=== PATIENT | male | born 1930 | race African-American/Black ===

== ENCOUNTER 2016-05-16 09:49 | Inpatient (IN) | payer OTHER ==
[~2016-05-16] VITALS: Ht 172.7 cm; Wt 89.9 kg
[2016-05-16] MEDS ORDERED: LIDOCAINE 1% (MDV) 20 ML INJ SC ONE (10:30)
[2016-05-16] MEDS ORDERED: TAMS0.4C2 ORAL (10:35)
[2016-05-16] MEDS ORDERED: AMLO-147 ORAL (10:35)
[2016-05-16] MEDS ORDERED: VALS320T14 ORAL (10:35)
[2016-05-16] MEDS ORDERED: SIMV40TA7 ORAL (10:35)
[2016-05-16] MEDS ORDERED: METO100T13 ORAL (10:35)
[2016-05-16] MEDS ORDERED: HYDR-3498 ORAL (10:35)
[2016-05-16 10:54] LABS: ADD SCAN DIFF NO
--- NOTE | 2016-05-16 10:59 | RADRPT ---
PROCEDURE: CHEST 1VW CLINICAL INDICATION: Shortness of breath TECHNIQUE: Single frontal view of the chest was obtained COMPARISON: 10/25/2006 FINDINGS: The cardiac size is mildly large. Aortic vascular calcifications are demonstrated. There is mild pulmonary vascular congestion. The lungs are otherwise clear. No consolidation, effusion, or pneumothorax. Mild degenerative changes of the visualized osseous structures are visualized. IMPRESSION: 1. Mild cardiomegaly with mild pulmonary vascular congestion. 2. Atherosclerosis. RPTAT:PP .Hua Linn MD, Date Time Electronically viewed and signed by .Hua Linn MD, on 05/16/2016 10:58 .V/
[2016-05-16 11:00] LABS: BASOPHILS % 0.3 % (0.0-2.0); EOSINOPHILS # 0.1 10^3/ul (0.0-0.5); EOSINOPHILS % 1.2 % (0.0-7.0); HEMATOCRIT 40.6 % (42.0-52.0); HEMOGLOBIN 12.7 g/dl (14.0-18.0); LYMPHOCYTES # 1.5 10^3/ul (0.8-2.9); LYMPHOCYTES % 26.4 % (15.0-51.0); MEAN CORPUSCULAR HEMOGLOBIN 24.8 pg (29.0-33.0); MEAN CORPUSCULAR HGB CONC 31.3 g/dl (32.0-37.0); MEAN CORPUSCULAR VOLUME 79.3 fl (82.0-101.0); MEAN PLATELET VOLUME 12.5 fl (7.4-10.4); MONOCYTE # 0.5 10^3/ul (0.3-0.9); MONOCYTES % 8.6 % (0.0-11.0); NEUTROPHIL # 3.7 10^3/ul (1.6-7.5); NEUTROPHILS % 63.3 % (39.0-77.0); PLATELET COUNT 165 10^3/UL (140-415); RED BLOOD COUNT 5.12 10^6/ul (4.70-6.10); RED CELL DISTRIBUTION WIDTH 15.1 % (11.5-14.5); WHITE BLOOD COUNT 5.8 10^3/ul (4.8-10.8)
[2016-05-16 11:20] LABS: ALBUMIN 3.8 g/dl (3.3-4.9); ALBUMIN/GLOBULIN RATIO 1.08; BILIRUBIN,INDIRECT 0.4 mg/dl (0-1.1); BILIRUBIN,TOTAL 0.4 mg/dl (0.2-1.3); CALCIUM 8.9 mg/dl (8.4-10.2); CREATININE 0.89 mg/dl (0.61-1.24); POTASSIUM 4.9 mmol/L (3.5-5.1); TOTAL PROTEIN 7.3 g/dl (6.1-8.1)
[2016-05-16 11:31] LABS: TROPONIN-I 0.039 ng/ml (0.00-0.12)
[2016-05-16] MEDS ORDERED: FUROSEMIDE 40 MG INJ IV ONE (13:00)
--- NOTE | 2016-05-16 13:08 | ERA ---
ER Documentation Chief Complaint Date/Time DATE: 05/16/16 TIME: 12:56 Chief Complaint FEELS WEAK AND TIRED HPI He said over the past 2 weeks he noticed that he has been having some dyspnea as he would walk up stairs to his apartment. He says however is starting to get gradually worse and is having more shortness of breath when he walks around his house. He states she is walking 20-30 feet will cause some shortness of breath. He denies any orthopnea and has no exertional chest pain. Is also complaining of swelling to his left elbow over the past month. He has olecranon swelling that he says will not go away after seeing his doctor put him on some medication for this. There is no erythema or pain. ROS All systems reviewed and are negative except as per history of present illness. Medications Home Meds Reported Medications Hydrocodone Bit-Acetaminophen (Hydrocodone Bit-APAP) 5-325MG Tablet, 1 TAB ORAL Y for PAIN LEVEL 6-10, #90 05/16/16 Valsartan (Valsartan) 320 Mg Tablet, 320 MG ORAL DAILY, #30 05/16/16 Tamsulosin Hcl* (Tamsulosin Hcl*) 0.4 Mg Cap.er.24h, 0.4 MG ORAL DAILY, #90 05/16/16 Amlodipine Besylate* (Amlodipine Besylate*) 10 Mg Tablet, 10 MG ORAL DAILY, #180 05/16/16 Metoprolol Succinate* (Toprol XL*) 100 Mg Tab.sr.24h, 100 MG ORAL DAILY, #180 05/16/16 Simvastatin (Simvastatin) 40 Mg Tablet, 40 MG ORAL BEDTIME, #90 05/16/16 Allergies Allergies: Coded Allergies: No Known Allergy (Unverified , 05/16/16) PMhx/Soc History of Surgery: Yes (NECK ) Anesthesia Reaction: No Hx Neurological Disorder: No Hx Respiratory Disorders: No Hx Cardiac Disorders: Yes (HTN , HIGH CHOLESTEROL ) Hx Psychiatric Problems: No Hx Miscellaneous Medical Probl: No Hx Alcohol Use: No Hx Substance Use: No Hx Tobacco Use: No Smoking Status: Former smoker FmHx Family History: No coronary disease Physical Exam Vitals Vital Signs Date Time Temp Pulse Resp B/P Pulse Ox O2 Delivery O2 Flow Rate FiO2 05/16/16 12:32 48 18 156/67 100 Nasal Cannula 2.0 05/16/16 09:57 98.1 54 18 161/67 99 Physical Exam Const: Well-developed, well-nourished Head: Atraumatic, normocephalic Eyes: Normal Conjunctiva, PERRLA, EOMI, normal sclera, no nystagmus ENT: Normal External Ears, Nose and Mouth, moist mucus membranes. Neck: Full range of motion. No meningismus, no lymphadenopathy. Resp: Clear to auscultation bilaterally, no wheezing, rhonchi, rales Cardio: Regular rate and rhythm, no murmurs, S1 S2 present Abd: Soft, non tender x 4, non distended. Normal bowel sounds, no guarding or rebound, no pulsitile abdominal masses or bruits Skin: No petechiae or rashes, no ecchymosis , no maculopapular rash Back: No midline or flank tenderness Ext: No cyanosis, or edema, FROM x 4, normal inspection, neurovascularly intact x 4, the left olecranon has a swollen bursa that is ballotable there is no sign of infection no erythema no abscess or induration Neur: Awake and alert, STR 5/5 x 4, sensation intact x 4, no focal findings, cerebellum intact Psych: Normal Mood and Affect Result Diagram: 05/16/16 1045 05/16/16 1045 Results 24 hrs Laboratory Tests Test 05/16/16 10:45 White Blood Count 5.810^3/ul Red Blood Count 5.1210^6/ul Hemoglobin 12.7g/dl Hematocrit 40.6% Mean Corpuscular Volume 79.3fl Mean Corpuscular Hemoglobin 24.8pg Mean Corpuscular Hemoglobin Concent 31.3g/dl Red Cell Distribution Width 15.1% Platelet Count 44474^3/UL Mean Platelet Volume 12.5fl Neutrophils % 63.3% Lymphocytes % 26.4% Monocytes % 8.6% Eosinophils % 1.2% Basophils % 0.3% Nucleated Red Blood Cells % 0.0/100WBC Neutrophils # 3.710^3/ul Lymphocytes # 1.510^3/ul Monocytes # 0.510^3/ul Eosinophils # 0.110^3/ul Basophils # 0.010^3/ul Nucleated Red Blood Cells # 0.010^3/ul Sodium Level 139mmol/L Potassium Level 4.9mmol/L Chloride Level 105mmol/L Carbon Dioxide Level 26mmol/L Anion Gap 13 Blood Urea Nitrogen 16mg/dl Creatinine 0.89mg/dl Glucose Level 117mg/dl Calcium Level 8.9mg/dl Total Bilirubin 0.4mg/dl Direct Bilirubin 0.00mg/dl Indirect Bilirubin 0.4mg/dl Aspartate Amino Transf (AST/SGOT) 37IU/L Alanine Aminotransferase (ALT/SGPT) 30IU/L Alkaline Phosphatase 86IU/L Troponin I 0.039ng/ml B-Type Natriuretic Peptide 1740PG/ML Total Protein 7.3g/dl Albumin 3.8g/dl Globulin 3.50g/dl Albumin/Globulin Ratio 1.08 Current Medications Medications (Trade) Dose Ordered Sig/Jama Route PRN Reason Start Time Stop Time Status Last Admin Dose Admin Lidocaine (Xylocaine 1% (Mdv) 20 ml) 20 ml ONCE ONCE SC 05/16/16 10:30 05/16/16 10:33 DC Furosemide (Lasix) 40 mg ONCE ONCE IV 05/16/16 13:00 05/16/16 13:01 Procedures/MDM PROCEDURE: CHEST 1VW CLINICAL INDICATION: Shortness of breath TECHNIQUE: Single frontal view of the chest was obtained COMPARISON: 10/25/2006 FINDINGS: The cardiac size is mildly large. Aortic vascular calcifications are demonstrated. There is mild pulmonary vascular congestion. The lungs are otherwise clear. No consolidation, effusion, or pneumothorax. Mild degenerative changes of the visualized osseous structures are visualized. IMPRESSION: 1. Mild cardiomegaly with mild pulmonary vascular congestion. 2. Atherosclerosis. RPTAT:PP .Hua Linn MD, Date Time Electronically viewed and signed by .Hua Linn MD, on 05/16/2016 10:58 .V/ CC: JUSTICE DA SILVA DO Patient has elevated BNP at 1740 and does have vascular congestion on his chest x-ray. Will be given IV Lasix here to help diurese. He is having symptomatic heart failure and I will admit him for diuresis, echocardiogram and CHF workup. Procedure: Left olecranon bursa drainage by me Skin was prepped with Betadine and aseptic technique. The skin was numbed with 1% lidocaine without epinephrine using 1 cc. 18-gauge needle was used to advance into the olecranon bursa and obtain 10 cc of blood. The entire swelling is completely resolved EKG: Rate/Rhythm: Sinus bradycardia left anterior fascicular block QRS, ST, QT: NORMAL IA, QRS, QT] Impression: Abnormal EKG] Departure Diagnosis: Primary Impression: New onset of congestive heart failure Additional Impression: Olecranon bursitis of left elbow Condition: Stable JUSTICE DA SILVA DO May 16, 2016 13:06
[2016-05-16 17:30] VITALS: TEMP 98
[2016-05-16] MEDS ORDERED: ONDANSETRON 4 MG INJ IV PRN (18:30)
[2016-05-16] MEDS ORDERED: ACETAMINOPHEN 325 MG TAB PO PRN ×2 (18:30→19:30)
[2016-05-16 19:15] VITALS: Ht 172.7 cm; Wt 89.9 kg
[2016-05-16] MEDS ORDERED: ZOLPIDEM 5 MG TAB PO PRN (19:30)
[2016-05-16] MEDS ORDERED: ONDANSETRON 4 MG TAB PO PRN (19:30)
[2016-05-16] MEDS ORDERED: NACL 0.9% 3 ML SYG IV SCH (19:30)
[2016-05-16] MEDS ORDERED: DOCUSATE SODIUM 100 MG CAP PO PRN (19:30)
[2016-05-16] MEDS ORDERED: NON-FORMULARY/PATIENT OWN MED (Simvastatin 40 MG) ORAL SCH (19:30)
[2016-05-16 20:22] VITALS: PULSE 50
[2016-05-16 20:43] VITALS: BP 179/78; RESP 17
[2016-05-16] MEDS: FAMOTIDINE 20 MG TAB PO SCH (21:03)
[2016-05-16] MEDS: ATORVASTATIN 20 MG TAB PO SCH (21:03)
[2016-05-16] MEDS: ENOXAPARIN 40 MG/0.4 ML SYG SC SCH (21:03)
[2016-05-16 22:00] VITALS: BP 158/79
[2016-05-16 23:11] VITALS: PULSE 40
[2016-05-17] VITALS (12 sets, daily range): BP systolic 127–175; BP diastolic 66–81; PULSE 40–61; RESP 18
[2016-05-17] MEDS ORDERED: FUROSEMIDE 40 MG INJ IV ONE (08:00)
[2016-05-17 08:21] LABS: ADD SCAN DIFF NO
[2016-05-17 08:28] LABS: BASOPHILS % 0.4 % (0.0-2.0); EOSINOPHILS # 0.1 10^3/ul (0.0-0.5); EOSINOPHILS % 1.8 % (0.0-7.0); HEMATOCRIT 41.2 % (42.0-52.0); LYMPHOCYTES # 1.6 10^3/ul (0.8-2.9); LYMPHOCYTES % 31.7 % (15.0-51.0); MEAN CORPUSCULAR HEMOGLOBIN 24.8 pg (29.0-33.0); MEAN CORPUSCULAR HGB CONC 31.6 g/dl (32.0-37.0); MEAN CORPUSCULAR VOLUME 78.5 fl (82.0-101.0); MEAN PLATELET VOLUME 12.7 fl (7.4-10.4); MONOCYTE # 0.5 10^3/ul (0.3-0.9); MONOCYTES % 10.6 % (0.0-11.0); NEUTROPHIL # 2.8 10^3/ul (1.6-7.5); NEUTROPHILS % 55.1 % (39.0-77.0); PLATELET COUNT 164 10^3/UL (140-415); RED BLOOD COUNT 5.25 10^6/ul (4.70-6.10); RED CELL DISTRIBUTION WIDTH 15.2 % (11.5-14.5); WHITE BLOOD COUNT 5.1 10^3/ul (4.8-10.8)
[2016-05-17 08:59] LABS: CREATININE 0.77 mg/dl (0.61-1.24)
[2016-05-17] MEDS ORDERED: VALSARTAN 320 MG ORAL SCH (09:00)
[2016-05-17] MEDS ORDERED: METOPROLOL (XL) 100 MG TAB PO SCH (09:00)
[2016-05-17] MEDS: TAMSULOSIN (SR) 0.4 MG CAP PO SCH (09:13)
[2016-05-17] MEDS: FAMOTIDINE 20 MG TAB PO SCH (09:14)
[2016-05-17] MEDS: VALSARTAN 160 MG TAB PO SCH (09:14)
[2016-05-17] MEDS: AMLODIPINE 10 MG TAB PO SCH (09:14)
[2016-05-17] MEDS: ENOXAPARIN 40 MG/0.4 ML SYG SC SCH (09:23)
--- NOTE | 2016-05-17 12:21 | CONS ---
DATE OF ADMISSION: 05/16/2016 DATE OF CONSULTATION: 05/17/2016 REFERRING PHYSICIAN: Dr. Thibodeaux REASON FOR EVALUATION: Bradycardia and episodes of recurrent dizziness, and new onset CHF. HISTORY OF PRESENT ILLNESS: Mr. Minaya is a pleasant 86-year-old gentleman with history of hypert ension, dyslipidemia, history of prior episodes of dizziness who comes to the hospital now for evalu ation of episodes of dizziness associated with shortness of breath. The patient stated he was at ho me and he felt very dizzy and short of breath. The patient said that he had prior episodes like thi s before. I reviewed the patient's EKG carefully. The patient has a very abnormal conduction on hi s EKG. Based on my interpretation, the patient has intraventricular conduction delay with leftward axis and left anterior fascicular block. He also has interval prolongation. The patient is i n a beta gregory at the moment. The patient does not feel dizzy now. I think for now, the plan is to obtain a 2D echo to establish ejection fraction. I would recommend for patient to have a stress test to restratify for ischemic disease. If patient continues to have bradycardia with these episod es, there is a chance that the patient might benefit from a pacemaker. For now, we will continue to evaluate for heart failure with a 2D echo, a stress test to follow. This will be in consideration of pacemaker placement. PAST MEDICAL HISTORY: 1. Hypertension. 2. Dyslipidemia. 3. History of dizzy episodes in the past. ALLERGIES: NO KNOWN DRUG ALLERGIES. SOCIAL HISTORY: The patient does not smoke, does not drink and does not do drugs, but he has a hist ory of tobacco use in the past. HOME MEDICATIONS: Include: 1. Hydrocodone. 2. Valsartan 320 mg p.o. once a day. 3. 4. Amlodipine 10 mg p.o. once a day. 3. Metoprolol succinate 100 mg q.24 h. 4. Simvastatin 40 mg once a day. REVIEW OF SYSTEMS: CONSTITUTIONAL: No fevers, no chills. Episodes of dizziness as described. HEENT: No changes in vision or hearing. CARDIAC: No chest pain reported. RESPIRATORY: Shortness of breath, acute on chronic, with dizziness. GASTROINTESTINAL: No nausea, vomiting, diarrhea, constipation. GENITOURINARY: No dysuria, hematuria. NEUROLOGIC: No focal neurologic deficits. PSYCHIATRIC: No known history of psychiatric illness. PHYSICAL EXAMINATION: VITAL SIGNS: Temperature is 98.6, heart rate is in the 40s on admission, blood pressure 175/81. GENERAL: He is a thin gentleman in no acute distress, alert and oriented x3, aware of his condition . HEAD: Normocephalic, atraumatic. Eyes anicteric. NECK: Supple. JVD 6-7 cm. There is no lymphadenopathy. HEART: Regular with soft holosystolic murmur at the apex. PMI is nondisplaced. There is no S3. LUNGS: Coarse at the base. ABDOMEN: Distended, bowel sounds are present. There is no hepatosplenomegaly. GENITOURINARY: No cyanosis, intact sutures cyanosis, trace edema. SKIN: Does not show any bruises. NEUROLOGICAL: He is able to move his extremities. LABORATORY DATA: White blood cell count 5.1, hemoglobin 7.0, platelets 164. His INR is 1.0. Sodiu m 140, potassium 4.0. His BUN is 14, creatinine 0.7. His CK-MB is 2.5 and troponin is negative at 0.09. ASSESSMENT AND PLAN: 1. Dizziness. The patient with episode of dizziness, continue dizziness evaluation. Now, the elvis ent will have a 2D echo, carotid ultrasounds are advised. We will also facilitate a stress test to rule out ischemia. 2. Abnormal electrocardiogram. Patient abnormal EKG, leftward axis with left anterior fascicular b lock is noted. I think that if patient is on the large dose of beta gregory, I will decrease his be ta gregory dose now and follow expectantly. If patient continues to have symptoms, he might require a pacemaker in the future. 2. Hypertension. Blood pressure is on the high side. Continue to adjust medical therapy as imssy campos and provide recommendations and care is indicated. 3. History of anemia. 4. Dyslipidemia. We will check fasting lipids for the morning. I would like to thank Dr. Thibodeaux for referring this patient for my evaluation. Dictated By: SHADY MALDONADO MD ML/NTS Conf#: [id number] DID#: [id number]
--- NOTE | 2016-05-17 14:56 | RADRPT ---
PROCEDURE: US Carotids. CLINICAL INDICATION: Dizziness TECHNIQUE: Multiple sonographic of the carotid arteries were obtained utilizing martin scale imaging . Color and Doppler imaging was performed. The images were reviewed on a PACS workstation. COMPARISON: No prior studies are available for comparison. FINDINGS: Location Right Left CCA 102 cm/sec 89 cm/sec Prox ICA 120 cm/sec 84 cm/sec Mid ICA 102 cm/sec 78 cm/sec Dist ICA 104 cm/sec 77 cm/sec ECA 214 cm/sec 135 cm/sec ICA/CCA 1.2 0.9 Antegrade flow is seen within the vertebral arteries bilaterally. Moderate scattered bilateral ather osclerotic plaque is present in a high especially at the bilateral common carotid arteries. This michael ateral intimal wall thickening is also present. Hemodynamically significant plaque is seen within t he carotid system bilaterally. No hemodynamically significant stenosis or occlusion is identified. IMPRESSION: 1. Moderate scattered atherosclerotic plaque and intimal wall thickening without evidence for hemody namically significant stenosis - validated velocity measurements with angiographic measurements, richy ocity criteria are extrapolated from diameter data as defined by the Society of Radiologists in Ultr asound Consensus Conference Radiology 2003; 229;340-346. This study does indirectly reference the m easurement of the distal ICA diameter as the denominator for stenosis measurement. 2. Antegrade flow seen within the vertebral arteries bilaterally. 3. Bilateral intimal wall thickening. SRU Consensus Conference Criteria for the Diagnosis of Carotid Artery Stenosis Degree of Stenosis, % ICA PSV, cm/sec Plaque Estimate, % ICA/CCA PSV Ratio Normal <125 None <2.0 <50 <125 <50 <2.0 50 69 125-230 >50 2.0-4.0 >70 but less than near occlusion >230 >50 <4.0 Near occlusion High, low, or undetectable Visible Variable Total occlusion Undetectable Visible, no detectable lumen Not applicable *Cartoid artery stenosis: martin-scale and Doppler US diagnosis. Society of Radiologists in Ultrasound Consensus Conference. Radiology 2003; 229: 340-346 RPTAT: JJ .Juan Carrington MD, MD Date Time Electronically viewed and signed by .Juan Carrington MD, MD on 05/17/2016 14:56 .A/
[2016-05-17] MEDS ORDERED: hydrALAzine 20 MG INJ IV PRN (15:00)
[2016-05-17] MEDS ORDERED: GUAIFENESIN/CODEINE 5ML CUP PO PRN (15:00)
[2016-05-17] MEDS ORDERED: ALBUTEROL 18 GM INHALER INH PRN (15:00)
--- NOTE | 2016-05-17 15:44 | HP ---
DATE OF ADMISSION: 05/17/2016 PRIMARY CARE PHYSICIAN: None. GYRO COMPASS TESTER: Shady Oreilly MD CHIEF COMPLAINT: Fatigue. HISTORY OF PRESENT ILLNESS: An 86-year-old gentleman who has had exertional fatigue since July. No known aggravating, no known relieving factors. Apparently he is able to do some activities, but ex ertional has been limited. He does have edema and sometimes gait instability due to weakness. No l oss of speech or vision. No focal deficits. No dysarthria, dysphagia. Denies any symptoms or sign s of GI bleed. He has an intermittent and ongoing cough with no fever. Weight loss is doubtful. N o known aggravating, no known relieving factors. No recent medication changes except for maybe a fe w months ago Benicar was changed to another blood pressure medication. PAST MEDICAL HISTORY: 1. Peripheral artery disease, carotid stenosis. 2. Hypertension. 3. Dyslipidemia. 4. Past tobacco. 5. Social alcohol. PAST SURGICAL HISTORY: 1. Right foot surgery. 2. Bilateral carotid endarterectomy by Dr. Blevins in [place]. ALLERGIES: NO KNOWN DRUG ALLERGIES. SOCIAL HISTORY: Past tobacco, potentially social alcohol. FAMILY HISTORY: Some sort of cancer with maybe mother and sister but unknown type. There is a fami ly history of maybe stroke and coronary artery disease, but none at an early age. REVIEW OF SYSTEMS NEUROLOGICAL: No headache. No loss of speech or vision. CARDIOVASCULAR: No chest pain. Positive dyspnea. Positive edema. LUNGS: Positive dyspnea, edema, cough. ABDOMEN: No pain, nausea, vomiting, diarrhea. GENITOURINARY: No abdominal pain, hematuria, dysuria. MUSCULOSKELETAL: Mild gait dysfunction. No rash, no itching. Positive edema. PSYCHIATRY: The patient has stable mood without significant agitation, anxiety, depression. HEMATOLOGIC: No hematochezia, hemoptysis, melena, hematuria. CONSTITUTIONAL: No weight loss that I am aware of. ENDOCRINE: Positive dyslipidemia. No previous thyroid or diabetes issues. PHYSICAL EXAMINATION: HEENT/NECK: Extraocular movements are intact. No pallor, no icterus, no adenopathy, no JVD, no dr oop. Probable some anisocoria or exophthalmos, concerning. CARDIOVASCULAR: S1, S2 regular. No murmur, rub, gallop appreciated. LUNGS: Diminished breath sounds bilaterally. No tachypnea. ABDOMEN: Bowel sounds present, nontender, nondistended. No rigidity, no rebound or guarding. No a bdominal bruits. EXTREMITIES: With edema bilaterally, mild, negative Homans. HOME MEDICATIONS: 1. [place] 5 as needed. 2. Norvasc 10. 3. Toprol-XL 100. 4. Simvastatin 40. 5. Flomax 0.4. 6. Diovan 320. IMAGING: Chest x-ray: Mild congestion, cardiomegaly. LABORATORY DATA: White cell count 5, H and H of 12 and 40, platelets of 165. CMP essentially unrem arkable except a proBNP of 1700. Troponins negative x3. ASSESSMENT: 1. Exertional dyspnea, possible symptomatic bradycardia, left ventricular induction delay. Stable. Consult Cardiology. Decreased rate control. Check TSH. Consider stress test. Follow up on echo . 2. Chronic benign prostatic hypertrophy, potentially continue Flomax. 3. Possible diastolic dysfunction. 4. Chronic hypertension, possible hypertensive heart disease. 5. Anemia. 6. Past tobacco. 7. Degenerative joint disease. 8. Chronic peripheral artery disease. PLAN: Admit to telemetry, rule out acute coronary syndrome. Consult cardiology. Decrease beta blo cker. Follow rhythm. If there is no syncope, he may not require a pacemaker. Recommend home with supportive care. No driving and may be off rate control and followup. Unless otherwise symptoms, i n which we will have to proceed forward with a pacemaker. The patient agrees with plan of care. Co ntinue GI and DVT prophylaxis. Check TSH. Check . Dictated By: KENRICK LAMAR MD AC/NTS Conf#: [id number] DID#: [id number] CC: SHADY OREILLY MD;*End*
--- NOTE | 2016-05-17 17:40 | RADRPT ---
Echocardiogram Report Patient Name: JAIMEE NASSAR Gender: Male Date: 1930 Study Date: 17-May-2016 Test Preparation Tutor: Yudelka Chowdhury RUST Location: 5556 Ref. Physician: JARED MENENDEZ Quality: Good Procedures: Transthoracic echocardiogram with complete 2D, M-Mode, and doppler examination. Indications: Congestive Heart Failure. 2D/M Mode Doppler Measurement Value Normal Ranges Measurement Value Normal Ranges LVIDd 2D 4.5 3.5 - 5.6 cm AV Peak Raudel 1.2 m/sec LVIDs 2D 2.5 2.1 - 4.1 cm AV Peak PG 6.0 mmHg FS 2D 45.1 % LVOT Peak Raudel 0.9 m/sec LVPWd 2D 1.8 0.6 - 1.1 cm LVOT Peak PG 3.0 mmHg IVSd 2D 1.7 0.6 - 1.1 cm MV E Peak Raudel 0.9 m/sec IVS/LVPW 2D 0.9 MV A Peak Raudel 0.5 m/sec AoR Diam 2D 2.8 2.0 - 3.7 cm MV E/A 1.9 LA/Ao 2D 2 0 - 1 MV Decel Time 246 msec EDV 2D 91.1 cm3 MV E/A 1.9 ESV 2D 15.1 cm3 TR Peak Raudel 2.4 m/sec LA Dimen 2D 4.2 2.3 - 4.0 cm TR Peak PG 23.0 mmHg RVSP 26.0 mmHg Findings Left Ventricle: Normal left ventricular systolic function. Normal left ventricular cavity size. Severe concentric left ventricular hypertrophy. Ejection fraction is visually estimated at 65 %. Right Ventricle: Normal right ventricular size. Normal right ventricular systolic function. Left Atrium: There is mild enlargement of left atrium. Right Atrium: The right atrium is normal in size. Mitral Valve: Mitral valve leaflets appear mildly thickened. Mild mitral annular calcification. Mild mitral valve regurgitation. Aortic Valve: No significant aortic stenosis or insufficiency. Aortic cusps appear mildly calcified. Tricuspid Valve: Normal appearance of the tricuspid valve. Estimated peak PA systolic pressure 26 mmHg. There is trace tricuspid regurgitation. Pulmonic Valve: Normal pulmonic valve appearance. There is trace pulmonic regurgitation. Pericardium: Trivial pericardial effusion. Aorta: Normal aortic root. IVC: Normal size and normal respiratory collapse consistent with normal right atrial pressure. Conclusions 1.Normal left ventricular systolic function. Normal left ventricular cavity size. Severe concentric left ventricular hypertrophy. Ejection fraction is visually estimated at 65 %. 2.No significant aortic stenosis or insufficiency. Aortic cusps appear mildly calcified. 3.Normal appearance of the tricuspid valve. Estimated peak PA systolic pressure 26 mmHg. There is trace tricuspid regurgitation. 4.Mitral valve leaflets appear mildly thickened. Mild mitral annular calcification. Mild mitral valve regurgitation. Electronically Signed By: Tyshawn Oreilly 17-May-2016 17:39:23 -0700 Patient Name: JAIMEE NASSAR Study Date: 17-May-[id number]
[2016-05-17] MEDS: ATORVASTATIN 20 MG TAB PO SCH (21:22)
[2016-05-18] VITALS (12 sets, daily range): BP systolic 148–169; BP diastolic 67–88; PULSE 44–63; RESP 17–18
[2016-05-18 07:37] LABS: ADD SCAN DIFF NO
[2016-05-18 07:46] LABS: BASOPHILS % 0.5 % (0.0-2.0); EOSINOPHILS # 0.1 10^3/ul (0.0-0.5); EOSINOPHILS % 2.4 % (0.0-7.0); HEMATOCRIT 40.8 % (42.0-52.0); HEMOGLOBIN 12.6 g/dl (14.0-18.0); LYMPHOCYTES % 33.7 % (15.0-51.0); MEAN CORPUSCULAR HEMOGLOBIN 24.4 pg (29.0-33.0); MEAN CORPUSCULAR HGB CONC 30.9 g/dl (32.0-37.0); MEAN CORPUSCULAR VOLUME 79.1 fl (82.0-101.0); MEAN PLATELET VOLUME 12.8 fl (7.4-10.4); MONOCYTE # 0.6 10^3/ul (0.3-0.9); MONOCYTES % 9.8 % (0.0-11.0); NEUTROPHIL # 3.1 10^3/ul (1.6-7.5); NEUTROPHILS % 53.4 % (39.0-77.0); PLATELET COUNT 165 10^3/UL (140-415); RED BLOOD COUNT 5.16 10^6/ul (4.70-6.10); WHITE BLOOD COUNT 5.8 10^3/ul (4.8-10.8)
[2016-05-18 07:51] LABS: INR 1.02; PROTIME 13.4 Sec (12.2-14.2)
[2016-05-18 07:54] LABS: IRON 50 ug/dl (35-150)
[2016-05-18 07:56] LABS: CALCIUM 8.8 mg/dl (8.4-10.2); CREATININE 0.9 mg/dl (0.61-1.24); MAGNESIUM 2.1 mg/dl (1.7-2.5); PHOSPHORUS 4.7 mg/dl (2.5-4.9); POTASSIUM 4.1 mmol/L (3.5-5.1)
[2016-05-18 08:04] LABS: TOTAL IRON BINDING CAPACITY 326 ug/dl (241-421)
[2016-05-18 08:28] LABS: THYROID STIMULATING HORMONE 0.557 MIU/L (0.465-4.680)
[2016-05-18 08:29] LABS: FERRITIN 51.9 ng/ml (11.1-264.0)
[2016-05-18] MEDS ORDERED: METOPROLOL (XL) 25 MG TAB PO SCH (09:00)
[2016-05-18] MEDS ORDERED: FAMOTIDINE 20 MG TAB PO SCH (09:00)
[2016-05-18] MEDS: ENOXAPARIN 40 MG/0.4 ML SYG SC SCH (09:18)
[2016-05-18] MEDS: TAMSULOSIN (SR) 0.4 MG CAP PO SCH (09:18)
[2016-05-18] MEDS: VALSARTAN 160 MG TAB PO SCH (09:19)
[2016-05-18] MEDS: AMLODIPINE 10 MG TAB PO SCH (09:20)
--- NOTE | 2016-05-18 10:10 | RADRPT ---
Vent Rate: 47 bpm RR Interval: 0 msec TN Interval: 210 msec QRS Duration: 110 msec QT Interval: 490 msec QTC Interval: 433 msec P-R-T Cobb: 54 - -44 - 72 degrees Marked sinus bradycardia with 1st degree AV block Possible Left atrial enlargement Left axis deviation Anteroseptal infarct , age undetermined Abnormal ECG Electronically Signed By: Arjun Rodriguez [id number]
--- NOTE | 2016-05-18 12:35 | PN ---
Date/Time of Note Date/Time of Note DATE: 05/18/16 TIME: 12:31 Assessment/Plan VTE Prophylaxis VTE Prophylaxis Intervention: LMWH Lines/Catheters IV [facility]ter [facility] Saline Lock Urinary Cath still in place: No Assessment/Plan Chief Complaint/Hosp Course Subjective: No events. No syncope. Objective: Vital signs stable. Some sinus rhythm sinus bradycardia. Physical examination No pallor droop JVD CTAB Reg, no murmur rub gallop Bs positive nt nd; no R/R/G No edema Assessment/plan 1. Exertional dyspnea, possible symptomatic bradycardia, lvcd. Stable. Decreased BB. TSH ok. Check stress t. -Pacemaker if there is indication. Otherwise potentially home on low-dose bb & follow-up's. 2. Chr bph; potentially cont Flomax. 3. Possible diastolic dysfunction. EF = 65%. Moderate concentric LVH. 4. Chr htn, probable hypertensive heart disease. 5. Anemia. 6. Past tobacco. 7. Djd. 8. Chr pad. Ho bilat carotid endarterectomy. Problems: Exam/Review of Systems Vital Signs Vitals Vital Signs Date Time Temp Pulse Resp B/P Pulse Ox O2 Delivery O2 Flow Rate FiO2 05/18/16 12:12 46 05/18/16 11:31 97.9 17 159/88 100 05/18/16 08:49 Nasal Cannula 2.0 Intake and Output 05/17/16 05/17/16 05/18/16 15:00 23:00 07:00 Intake Total 300 ml 300 ml Output Total 1000 ml 900 ml Balance -700 ml -600 ml Results Result Diagram: 05/18/16 0630 05/18/16 0630 Results 24 hrs Laboratory Tests Test 05/18/16 06:30 White Blood Count 5.8 Red Blood Count 5.16 Hemoglobin 12.6 L Hematocrit 40.8 L Mean Corpuscular Volume 79.1 L Mean Corpuscular Hemoglobin 24.4 L Mean Corpuscular Hemoglobin Concent 30.9 L Red Cell Distribution Width 15.0 H Platelet Count 165 Mean Platelet Volume 12.8 H Neutrophils % 53.4 Lymphocytes % 33.7 Monocytes % 9.8 Eosinophils % 2.4 Basophils % 0.5 Nucleated Red Blood Cells % 0.0 Neutrophils # 3.1 Lymphocytes # 2.0 Monocytes # 0.6 Eosinophils # 0.1 Basophils # 0.0 Nucleated Red Blood Cells # 0.0 Prothrombin Time 13.4 Prothrombin Time Ratio 1.0 INR International Normalized Ratio 1.02 Sodium Level 136 Potassium Level 4.1 Chloride Level 102 Carbon Dioxide Level 30 Anion Gap 8 # Blood Urea Nitrogen 18 Creatinine 0.90 Glucose Level 114 Hemoglobin A1c 6.1 H Calcium Level 8.8 Phosphorus Level 4.7 Magnesium Level 2.1 Iron Level 50 Total Iron Binding Capacity 326 Percent Iron Saturation 15 L Ferritin 51.9 Thyroid Stimulating Hormone (TSH) 0.557 Medications Medications Current Medications Amlodipine Besylate (Norvasc) 10 mg DAILY PO Last administered on 05/18/16 09: 20; Admin Dose 10 MG; Start 05/17/16 at 09:00 Tamsulosin HCl (Flomax) 0.4 mg DAILY PO Last administered on 05/18/16 09:18; Admin Dose 0.4 MG; Start 05/17/16 at 09:00 Ondansetron HCl (Zofran Tab) 4 mg Q6H PRN PO NAUSEA AND/OR VOMITING; Start 11/22 at 19:30 Acetaminophen (Tylenol Tab) 650 mg Q6H PRN PO PAIN LEVEL 1-3 OR FEVER; Start at 19:30 Docusate Sodium (Colace) 100 mg Q12H PRN PO CONSTIPATION; Start 05/16/16 at 19: 30 Enoxaparin Sodium (Lovenox) 40 mg DAILY SC Last administered on 05/18/16 09:18 ; Admin Dose 40 MG; Start 05/16/16 at 19:30 Atorvastatin Calcium (Lipitor) 20 mg DAILY@21 PO Last administered on 21:22; Admin Dose 20 MG; Start 05/16/16 at 21:00 Valsartan (Diovan) 320 mg DAILY PO Last administered on 05/18/16 09:19; Admin Dose 320 MG; Start 05/17/16 at 09:00 Metoprolol Succinate (Toprol Xl) 25 mg DAILY PO ; Start 05/18/16 at 09:00 Famotidine (Pepcid) 20 mg DAILY PO Last administered on 05/18/16 09:18; Admin Dose 20 MG; Start 05/18/16 at 09:00 Hydralazine HCl (Apresoline) 10 mg Q8 PO Last administered on 4/12/17at 05:30; Admin Dose 10 MG; Start 05/17/16 at 22:00 Hydralazine HCl (Apresoline) 10 mg Q6H PRN IV prn sbp>170; Start 05/17/16 at 15 :00 Guaifenesin/ Codeine Phosphate (Robitussin Ac Liquid Cup) 10 ml Q4H PRN PO COUGH; Start 05/17/16 at 15:00 KENRICK LAMAR MD May 18, 2016 12:35
--- NOTE | 2016-05-18 12:36 | PDOCDIS ---
Discharge Instructions DIAGNOSIS Discharge Diagnosis: bradycardia CONDITION Patient Condition: Stable HOME CARE INSTRUCTIONS: Special Diet: 2 GmNa, cardiac diet ACTIVITY: Activity Restrictions: Slowly Increase Activity Do not Drive FOLLOW UP/APPOINTMENTS Appointments Appt Dr Oreilly -1-2wks PCP -1wKENRICK Godfrey MD May 18, 2016 12:36
[2016-05-18] MEDS ORDERED: HYDR-3670 PO (12:40)
[2016-05-18] MEDS ORDERED: METO25TA7 PO (12:40)
[2016-05-18] MEDS ORDERED: REGADENOSON 0.4 MG/5 ML SYG ONE (12:45)
--- NOTE | 2016-05-18 13:14 | CONS ---
Date/Time of Note Date/Time of Note DATE: 05/18/16 TIME: 13:07 Assessment/Plan Assessment/Plan Chief Complaint/Hosp Course Imp: 1.Chest pain-negative troponin x 3/NL EF by echo 2.HTN 3.HL 4.Dizziness-improved 5.CHF-diastolic acute on chronic 6.Bradycardia Recc: -Tele -Continue diovan/norvasc/hydralazine -Hold BB given bradycardia -Continue asa/statin -Lexiscan stress test today Problems: Consultation Date/Type/Reason Admit Date/Time May 17, 2016 at 13:22 Initial Consult Date 05/17/2016 Type of Consultation: Cardiology Reason for Consultation Chest pain Referring Provider: SHERRIE MUÑOZ Exam/Review of Systems Vital Signs Vitals Vital Signs Date Time Temp Pulse Resp B/P Pulse Ox O2 Delivery O2 Flow Rate FiO2 05/18/16 12:12 46 05/18/16 11:31 97.9 17 159/88 100 05/18/16 08:49 Nasal Cannula 2.0 Intake and Output 05/17/16 05/17/16 05/18/16 15:00 23:00 07:00 Intake Total 300 ml 300 ml Output Total 1000 ml 900 ml Balance -700 ml -600 ml Exam Review of Systems: CONSTITUTIONAL: No fevers, chills. PULMONARY: No sob CARDIOVASCULAR: No chest pain/palpitations GASTROINTESTINAL: No nausea/vomiting. GENITOURINARY: No hematuria/dysuria. MUSCULOSKELETAL: No myagias/arthalgias. PSYCHIATRIC: The patient denies depression. NEUROLOGIC: No weakness Constitutional: alert Psych: no complaints Head: normocephalic ENMT: mucosa pink and moist Neck: supple Respiratory: diminished breath sounds Cardiovascular: regular rate and rhythm Gastrointestinal: non-tender, soft Musculoskeletal: muscle tone (normal) Extremities: edema (none) Neurological: other (No focal deficits) Results Result Diagram: 05/18/16 0630 05/18/16 0630 Results 24 hrs Laboratory Tests Test 05/18/16 06:30 White Blood Count 5.8 Red Blood Count 5.16 Hemoglobin 12.6 L Hematocrit 40.8 L Mean Corpuscular Volume 79.1 L Mean Corpuscular Hemoglobin 24.4 L Mean Corpuscular Hemoglobin Concent 30.9 L Red Cell Distribution Width 15.0 H Platelet Count 165 Mean Platelet Volume 12.8 H Neutrophils % 53.4 Lymphocytes % 33.7 Monocytes % 9.8 Eosinophils % 2.4 Basophils % 0.5 Nucleated Red Blood Cells % 0.0 Neutrophils # 3.1 Lymphocytes # 2.0 Monocytes # 0.6 Eosinophils # 0.1 Basophils # 0.0 Nucleated Red Blood Cells # 0.0 Prothrombin Time 13.4 Prothrombin Time Ratio 1.0 INR International Normalized Ratio 1.02 Sodium Level 136 Potassium Level 4.1 Chloride Level 102 Carbon Dioxide Level 30 Anion Gap 8 # Blood Urea Nitrogen 18 Creatinine 0.90 Glucose Level 114 Hemoglobin A1c 6.1 H Calcium Level 8.8 Phosphorus Level 4.7 Magnesium Level 2.1 Iron Level 50 Total Iron Binding Capacity 326 Percent Iron Saturation 15 L Ferritin 51.9 Thyroid Stimulating Hormone (TSH) 0.557 Medications Medications Current Medications Amlodipine Besylate (Norvasc) 10 mg DAILY PO Last administered on 05/18/16 09: 20; Admin Dose 10 MG; Start 05/17/16 at 09:00 Tamsulosin HCl (Flomax) 0.4 mg DAILY PO Last administered on 05/18/16 09:18; Admin Dose 0.4 MG; Start 05/17/16 at 09:00 Ondansetron HCl (Zofran Tab) 4 mg Q6H PRN PO NAUSEA AND/OR VOMITING; Start 11/22 at 19:30 Acetaminophen (Tylenol Tab) 650 mg Q6H PRN PO PAIN LEVEL 1-3 OR FEVER; Start at 19:30 Docusate Sodium (Colace) 100 mg Q12H PRN PO CONSTIPATION; Start 05/16/16 at 19: 30 Enoxaparin Sodium (Lovenox) 40 mg DAILY SC Last administered on 05/18/16 09:18 ; Admin Dose 40 MG; Start 05/16/16 at 19:30 Atorvastatin Calcium (Lipitor) 20 mg DAILY@21 PO Last administered on 21:22; Admin Dose 20 MG; Start 05/16/16 at 21:00 Valsartan (Diovan) 320 mg DAILY PO Last administered on 05/18/16 09:19; Admin Dose 320 MG; Start 05/17/16 at 09:00 Metoprolol Succinate (Toprol Xl) 25 mg DAILY PO ; Start 05/18/16 at 09:00 Famotidine (Pepcid) 20 mg DAILY PO Last administered on 05/18/16t 09:18; Admin Dose 20 MG; Start 05/18/16 at 09:00 Hydralazine HCl (Apresoline) 10 mg Q6H PRN IV prn sbp>170; Start 05/17/16 at 15 :00 Guaifenesin/ Codeine Phosphate (Robitussin Ac Liquid Cup) 10 ml Q4H PRN PO COUGH; Start 05/17/16 at 15:00 Hydralazine HCl (Apresoline) 25 mg Q8 PO ; Start 05/18/16 at 14:00 Aspirin (Halfprin) 81 mg DAILY PO ; Start 05/19/16 at 09:00 KARUNA MURRAY May 18, 2016 13:14
--- NOTE | 2016-05-18 13:47 | CONS ---
DATE OF ADMISSION: 05/17/2016 DATE OF CONSULTATION: 05/18/2016 TYPE OF CONSULTATION: Cardiology. TYPE OF PROCEDURE: Lexiscan Cardiolite stress test, electrocardiogram portion. INDICATION: Chest pain, assess for acute coronary syndrome. REQUESTING PHYSICIAN: Dr. Muñoz HISTORY OF PRESENT ILLNESS: Baseline vital signs electrocardiogram, pulse 67, blood pressure 151/83 . Electrocardiogram revealed sinus bradycardia rate of 53 with a left axis deviation, borderline IV CD, lateral T-wave inversion. PROCEDURE: The patient was standard Lexiscan infusion protocol over 10 seconds followed by radiolab eled tracer. The patient's test was stopped due to completion of protocol. Maximal achieved blood pressure during the test 161/71. Maximal heart rate during the test 68. ECG FINDINGS: The patient did not develop any new Lexiscan-induced ST or T-wave changes from baseli ne abnormalities. No documented PVCs. SYMPTOMS: The patient had complaints of mild shortness of breath during stress testing ____ chest p ain and abdominal pain, which both resolved during recovery. IMPRESSION: 1. No Lexiscan-induced ST or T-wave changes from baseline abnormalities for diagnostic cardiac isch emia. 2. No complaints of chest pain during stress testing, but positive shortness of breath. 3. Report of nuclear images to follow in separate dictation. Dictated By: KARUNA CRESPO/EMELINA Conf#: [id number] DID#: [id number] CC: SHERRIE MUÑOZ MD;*EndCC*
--- NOTE | 2016-05-18 14:17 | DS ---
DATE OF ADMISSION: 05/17/2016 DATE OF DISCHARGE: 05/18/2016 PRIMARY CARE PHYSICIAN: Unknown. ELECTROSTATIC PAINTER: Dr. Oreilly. DIAGNOSES ON ADMISSION: 1. Exertional dyspnea. 2. Sinus bradycardia. DIAGNOSES ON DISCHARGE: 1. Sinus bradycardia. 2. Exertional dyspnea. 3. Chronic peripheral artery disease. 4. Chronic hypertension. 5. Chronic dyslipidemia. 6. Past social alcohol, tobacco, possibly. 7. 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 8. Probable diastolic dysfunction, hypertensive heart disease. 9. Degenerative joint disease. 10. Pre-diabetes. HOSPITAL COURSE: An 86-year-old gentleman admitted with exertional dyspnea. On exam, noted to have sinus bradycardia, left ventricular int____conduction delay. Possibly due to beta gregory or Floma x. Beta blockers were decreased. TSH okay. Troponins negative. Echo shows EF of 65% with concent klaudia LVH. No wall motion abnormalities. Stress test will be done today and if stable, he will be di scharged home with medical management. Likely follow up EKGs, bradycardia eval down the line. Ther e is no indication for pacemaker at this time. There is no syncope. BPH. Flomax versus other non-rate control agents can be considered in the future. Valvular heart disease, mild MR. DISCHARGE PLAN: Home. Follow up with primary in [address] Oreilly in 1 to 2 weeks. DIET: Low salt and cholesterol. ACTIVITY: No driving. ALLERGIES: NONE. ____: None. CODE STATUS: FULL. CONDITION: Stable. BARRIERS TO DISCHARGE: None. PENDING TESTS: Stress test [id number]. FUNCTIONAL STATUS: The patient is awake, alert, and agrees to the plan of care. REASON FOR ADMISSION: Dyspnea and bradycardia. STOPPED MEDICATIONS: None. CONTINUED MEDICATIONS: 1. [place] 5 mg as needed. 2. Norvasc 10 mg daily. 3. Zocor 40 daily. 4. Flomax 0.4 daily. 5. Diovan 320 daily. ALTERED MEDICATIONS: Toprol-XL now 25 mg daily. NEW MEDICATIONS: 1. Ecotrin 81 daily. 2. Hydralazine 25 mg 3 times. IMAGING STUDIES: Carotid ultrasound, no significant plaque. Chest x-ray: Cardiomegaly, mild conge stion. BNP unremarkable. Iron of 50, binding capacity of 320, percent saturation of 15, ferritin o f 51. A1c of 6.1. TSH 0.557. Troponins negative. LFTs okay. INR 1. White cell count of 5, hemo globin and hematocrit of 12 and 40, MCV 79, platelets of 165. Dictated By: KENRICK LAMAR MD AC/NTS Conf#: [id number] DID#: [id number] CC: SHADY OREILLY MD;*EndCC*
--- NOTE | 2016-05-18 15:21 | RADRPT ---
PROCEDURE: Lexiscan myocardial perfusion study CLINICAL INDICATION: 86 -year-old patient complaining of chest pain. TECHNIQUE: Lexiscan 0.4 mg intravenously separate acquisition gated myocardial perfusion SPECT usi ng Tc 99m Myoview 28.5 mCi intravenously at stress and Tc-99m Myoview, 10.2 mCi intravenously at res t was performed using the rest/stress sequence. Poststress Myoview SPECT images were obtained in th e supine position. COMPARISON: No prior studies. FINDINGS: Perfusion images reveal small size mild in degree reversible perfusion abnormality in the inferior w all. Lexiscan post stress gated SPECT images demonstrate no wall motion abnormalities. IMPRESSION: 1. The type and distribution of the scintigraphic abnormalities are most consistent with a small re versible perfusion abnormality in the inferior wall. 2. No wall motion abnormalities. 3. The left ventricle ejection fraction at stress is 56%. A call report was made to Dr. San at 03:19 p.m. on May 18, 2016. RPTAT: HH .Shonda Alvarez MD, MD Date Time Electronically viewed and signed by .Shonda Alvarez MD, on 05/18/2016 15:21 .L/
[2016-05-19] MEDS ORDERED: ASPIRIN (EC) 81 MG TAB PO SCH (09:00)
== END 2016-05-18 18:40 | disposition home or self-care (01) | DRG 293 ==
LOC: E/R 09:49 → MS4 18:01 → OBSVTOIN 05-17 13:22
PROVIDERS: ADMIT Family Medicine; ATTEND Internal Medicine
DX: I50.33 Acute on chronic diastolic (congestive) heart failure (principal); R00.1 Bradycardia, unspecified; D64.9 Anemia, unspecified; I10 Essential (primary) hypertension; R42 Dizziness and giddiness; E78.5 Hyperlipidemia, unspecified; M19.90 Unspecified osteoarthritis, unspecified site; I73.9 Peripheral vascular disease, unspecified; N40.0 Benign prostatic hyperplasia without lower urinary tract symptoms; R73.03 Prediabetes
CPT/HCPCS: 36415; 71010; 78452; 80048; 80053; 82306; 82728; 83036; 83540; 83735; 83880; 84100; 84443; 84484; 85025; 85610; 93005; 93017; 93306; 93880; 96374; G0378; A9500; A9505; J1650; J1940; J2785

== ENCOUNTER 2016-07-07 14:42 | Emergency (ER) | payer OTHER ==
[~2016-07-07] VITALS: Ht 172.7 cm; Wt 85.0 kg
[~2016-07-07 14:42] MED LIST: AMLO-147 ORAL; HYDR-3670 PO; METO25TA7 PO; SIMV40TA7 ORAL; TAMS0.4C2 ORAL; VALS320T14 ORAL
[2016-07-07 14:47] VITALS: Ht 172.7 cm; Wt 85.0 kg
[2016-07-07 15:07] LABS: ADD SCAN DIFF NO
[2016-07-07 15:08] LABS: BASOPHILS % 0.4 % (0.0-2.0); EOSINOPHILS # 0.1 10^3/ul (0.0-0.5); EOSINOPHILS % 1.5 % (0.0-7.0); HEMATOCRIT 40.4 % (42.0-52.0); HEMOGLOBIN 13.3 g/dl (14.0-18.0); LYMPHOCYTES # 2.1 10^3/ul (0.8-2.9); LYMPHOCYTES % 38.4 % (15.0-51.0); MEAN CORPUSCULAR HEMOGLOBIN 25.4 pg (29.0-33.0); MEAN CORPUSCULAR HGB CONC 32.9 g/dl (32.0-37.0); MEAN CORPUSCULAR VOLUME 77.1 fl (82.0-101.0); MEAN PLATELET VOLUME 10.7 fl (7.4-10.4); MONOCYTE # 0.4 10^3/ul (0.3-0.9); MONOCYTES % 7.5 % (0.0-11.0); NEUTROPHIL # 2.9 10^3/ul (1.6-7.5); PLATELET COUNT 180 10^3/UL (140-415); RED BLOOD COUNT 5.24 10^6/ul (4.70-6.10); RED CELL DISTRIBUTION WIDTH 15.6 % (11.5-14.5); WHITE BLOOD COUNT 5.5 10^3/ul (4.8-10.8)
[2016-07-07 15:23] LABS: INR 1.06; PROTIME 13.8 Sec (12.2-14.2); PT RATIO 1.1
[2016-07-07 15:24] LABS: PARTIAL THROMBOPLASTIN TIME 28.2 Sec (25.0-35.0)
[2016-07-07 15:26] LABS: CALCIUM 9.2 mg/dl (8.4-10.2); CREATININE 0.83 mg/dl (0.61-1.24); POTASSIUM 4.2 mmol/L (3.5-5.1)
--- NOTE | 2016-07-07 15:32 | RADRPT ---
PROCEDURE: XR Chest 1 view. CLINICAL INDICATION: Chest pain TECHNIQUE: AP views of the chest were obtained. COMPARISON: May 16, 2016 FINDINGS: The heart is large. Calcified atherosclerosis is noted in the aorta. Small calcified granulomas are seen in the bilateral lower lobes. No consolidations are identified. No pneumothorax is seen. Th e osseous structures appear intact. Degenerative changes are noted in the shoulders. IMPRESSION: Cardiomegaly with calcified atherosclerosis in the aorta. Calcified granulomatous disease in the bilateral lower lobes. RPTAT: AA .Zach Pickett MD, Date Time Electronically viewed and signed by .Zach Pickett MD, on 07/07/2016 15:32 .P/
[2016-07-07 15:38] LABS: TROPONIN-I 0.055 ng/ml (0.00-0.12)
[2016-07-07] MEDS ORDERED: HYDR-3672 PO (15:58)
[2016-07-07] MEDS ORDERED: ATOR40TA68 PO (15:59)
--- NOTE | 2016-07-07 16:08 | ERD ---
ER Documentation Chief Complaint Date/Time DATE: 07/07/16 TIME: 16:04 Chief Complaint BIB RA FOR EVAL OF TINGLING SENSATION FROM HEAD TO ARMS. HPI This is an 86-year-old male with a history of hypertension CHF and cervical radiculopathy who presents to the emergency room today for evaluation of tingling in his left and right upper extremities. The patient states that he was at home when he checks his blood pressure. He states his blood pressure was mildly elevated and he began to become anxious. He states that he was breathing quickly and started to have increased numbness and tingling in the upper extremities. The patient came to the ER for evaluation. He states that since he has been an ambulance and has calmed down the patient has had no numbness or tingling. He denies any chest pain or shortness of breath at this time. The patient states that he does have a history of cervical radiculopathy from a previous accident which occurred approximately 2 years ago. ROS All systems reviewed and are negative except as per history of present illness. Medications Home Meds Active Scripts Metoprolol Succinate* (Toprol XL*) 25 Mg Tab.sr.24h, 25 MG PO DAILY for 14 Days , #14 Prov:KENRICK LAMAR MD 05/18/16 Reported Medications Atorvastatin* (Atorvastatin*) 40 Mg Tablet, 40 MG PO QHS, #30 TAB 07/07/16 Hydralazine Hcl* (Hydralazine Hcl*) 50 Mg Tab, 50 MG PO TID, #90 TAB 07/07/16 Valsartan (Valsartan) 320 Mg Tablet, 320 MG ORAL DAILY, #30 05/16/16 Tamsulosin Hcl* (Tamsulosin Hcl*) 0.4 Mg Cap.er.24h, 0.4 MG ORAL DAILY, #90 05/16/16 Amlodipine Besylate* (Amlodipine Besylate*) 10 Mg Tablet, 10 MG ORAL DAILY, #180 05/16/16 Discontinued Reported Medications Simvastatin (Simvastatin) 40 Mg Tablet, 40 MG ORAL BEDTIME, #90 05/16/16 Discontinued Scripts Hydralazine Hcl* (Hydralazine Hcl*) 10 Mg Tablet, 25 MG PO Q8 for 10 Days, #30 TAB Prov:KENRICK LAMAR MD 05/18/16 Allergies Allergies: Coded Allergies: No Known Allergy (Unverified , 07/07/16) PMhx/Soc History of Surgery: Yes (Bilateral neck surgeries) Anesthesia Reaction: No Hx Neurological Disorder: Yes (numbness on the fingers) Hx Respiratory Disorders: No Hx Cardiac Disorders: Yes (Hypertension) Hx Psychiatric Problems: No Hx Miscellaneous Medical Probl: No Hx Alcohol Use: No Hx Substance Use: No Smoking Status: Never smoker Physical Exam Vitals Vital Signs Date Time Temp Pulse Resp B/P Pulse Ox O2 Delivery O2 Flow Rate FiO2 07/07/16 15:02 Nasal Cannula 2 07/07/16 14:47 97.6 71 18 158/97 100 Physical Exam INITIAL VITAL SIGNS: Reviewed by me GENERAL: The patient is well developed and appropriate for usual state of health in no apparent distress HEENT: Pupils equal, round, and reactive to light. EOMI. There is no scleral icterus. NECK: C-spine is soft and supple, there is no meningismus. There is no cervical lymphadenopathy. LUNGS: Clear to auscultation bilaterally. There are no rales, wheezes or rhonchi. HEART: Regular rate and rhythm, no murmurs, clicks, rubs or gallops. ABDOMEN: Soft, non-tender, non-distended. There are bowel sounds in all four quadrants. No rebound or guarding. EXTREMITIES: There is no peripheral cyanosis or edema. No focal swelling or erythema. NEUROLOGICAL: The patient moves all four extremities with 5/5 strength. Cranial nerves II - XII are intact. Normal gait. Alert and oriented SKIN: There is no apparent rash or petechiae. HEME/LYMPHATIC: There is no evidence of excessive bruising or lymphedema. PSYCHIATRIC: The patient does not appear anxious or depressed. Result Diagram: 07/07/16 1500 07/07/16 1500 Results 24 hrs Laboratory Tests Test 07/07/16 15:00 White Blood Count 5.510^3/ul Red Blood Count 5.2410^6/ul Hemoglobin 13.3g/dl Hematocrit 40.4% Mean Corpuscular Volume 77.1fl Mean Corpuscular Hemoglobin 25.4pg Mean Corpuscular Hemoglobin Concent 32.9g/dl Red Cell Distribution Width 15.6% Platelet Count 23368^3/UL Mean Platelet Volume 10.7fl Neutrophils % 52.0% Lymphocytes % 38.4% Monocytes % 7.5% Eosinophils % 1.5% Basophils % 0.4% Nucleated Red Blood Cells % 0.0/100WBC Neutrophils # 2.910^3/ul Lymphocytes # 2.110^3/ul Monocytes # 0.410^3/ul Eosinophils # 0.110^3/ul Basophils # 0.010^3/ul Nucleated Red Blood Cells # 0.010^3/ul Prothrombin Time 13.8Sec Prothrombin Time Ratio 1.1 INR International Normalized Ratio 1.06 Activated Partial Thromboplast Time 28.2Sec Sodium Level 134mmol/L Potassium Level 4.2mmol/L Chloride Level 102mmol/L Carbon Dioxide Level 25mmol/L Anion Gap 11 Blood Urea Nitrogen 13mg/dl Creatinine 0.83mg/dl Glucose Level 83mg/dl Calcium Level 9.2mg/dl Troponin I 0.055ng/ml B-Type Natriuretic Peptide 552PG/ML Procedures/MDM EKG: Rate/Rhythm: [Normal Sinus Rhythm] QRS, ST, T-waves: [No changes consistent w/ acute ischemia] Impression: [No evidence of ischemia or arrhythmia] Chest X-ray 1V Interpreted by me: Soft Tissue: No acute abnormalities Bones: No acute abnormalities Mediastinum/Cardiac Silhouette/Lungs: Granuloma This 86-year-old male presents to the emergency room for evaluation of tingling in the bilateral upper extremities. This patient states that he started to feel slightly anxious after checking his blood pressure. His blood pressure in the emergency room is within normal limits. He did have cardiac workup including a chest x-ray and EKG. His lab work does demonstrate slight anemia. Troponin is negative. This patient is 100% on room air. When I evaluated this patient the patient is diuresing well and states that he is feeling much better. He states that he thinks that his elevated blood pressure cause him to become slightly anxious. The patient is hemodynamically stable at this time. He states that he would like to go home. I advised patient that he can go home at this time however if he were to develop any worsening symptoms including chest pain or shortness of breath he needs to return immediately and at that time the patient will be placed in for admission. The patient states that he is okay with the plan of care and states that he also has follow-up with his primary care physician on July 12. Departure Diagnosis: Primary Impression: Numbness and tingling sensation of skin Additional Impressions: CHF (congestive heart failure) Microcytic anemia Condition: Stable NATA LIEBERMAN DO Jul 07, 2016 16:07
[2016-07-07 16:20] VITALS: BP 145/69; PULSE 65; RESP 19; TEMP 98.6
== END 2016-07-07 16:21 | disposition home or self-care (01) ==
LOC: E/R 14:42
DX: R20.2 Paresthesia of skin (principal); R20.0 Anesthesia of skin; I50.9 Heart failure, unspecified; D50.9 Iron deficiency anemia, unspecified; R40.2142 Coma scale, eyes open, spontaneous, at arrival to emergency department; R40.2252 Coma scale, best verbal response, oriented, at arrival to emergency department; R40.2362 Coma scale, best motor response, obeys commands, at arrival to emergency department; I10 Essential (primary) hypertension
CPT/HCPCS: 36415; 71010; 80048; 83880; 84484; 85025; 85610; 85730; 93005

== ENCOUNTER 2017-10-11 20:15 | Emergency (ER) | END 2017-10-12 02:03 | disposition home or self-care (01) ==

== ENCOUNTER 2018-01-30 13:36 | Inpatient (IN) | payer OTHER ==
[~2018-01-30] VITALS: Ht 172.7 cm; Wt 82.9 kg
[2018-01-30] VITALS (8 sets, daily range): BP systolic 113–203; BP diastolic 60–94; PULSE 62–82; RESP 18–20; Ht 172.7 cm; Wt 82.9 kg
[~2018-01-30 13:36] MED LIST changes: +ATOR40TA68 PO; -HYDR-3670 PO; +HYDR-3672 PO; +HYDR-4011 PO; +METH750T93 PO; +METO-335 PO; -METO25TA7 PO; +NAPR-685 PO; -SIMV40TA7 ORAL; -VALS320T14 ORAL; +VALS320T15 ORAL
--- NOTE | 2018-01-30 13:58 | ERD ---
ER Documentation Chief Complaint Chief Complaint sob onset yesterday, hx chf HPI 87-year-old male with history of hypertension, hyperlipidemia and diastolic CHF presents to the ED via rescue ambulance complaining of acute onset of shortness of breath while walking upstairs just prior to arrival. Denies chest pain, palpitations or diaphoresis. Feels slightly better now. No recent URI symptoms, cough or hemoptysis. Denies leg pain or swelling. No abdominal pain or back pain. Denies headache, visual changes, focal weakness or numbness. No dizziness or lightheadedness. History of same for which she was admitted May 2016. No fevers or chills. ROS All systems reviewed and are negative except as per history of present illness. Medications Home Meds Active Scripts Naproxen* (Naproxen*) 375 Mg Tablet, 375 MG PO BID PRN for PAIN, #10 TAB Prov:SAMINA LOPEZ DO 10/12/17 Methocarbamol* (Robaxin*) 750 Mg Tablet, 750 MG PO Q6H PRN for MUSCLE SPASMS, #20 TAB Prov:SAMINA LOPEZ DO 10/12/17 Hydrocodone/Acetaminophen ([place] 5-325 Tablet) 1 Each Tablet, 1 EACH PO Q6 PRN for SEVERE PAIN LEVEL 7-10, #10 TAB Prov:SAMINA LOPEZ DO 10/12/17 Metoprolol Succinate* (Toprol XL*) 25 Mg Tab.sr.24h, 25 MG PO DAILY for 14 Days, #14 Prov:KENRICK LAMAR MD 05/18/16 Reported Medications Doxazosin Mesylate* (Doxazosin Mesylate*) 2 Mg Tablet, 2 MG PO QHS 01/30/18 Simvastatin (Simvastatin) 40 Mg Tablet, 40 MG PO QHS, #30 TAB 01/30/18 Isosorbide Mononitrate* (Ismo*) 20 Mg Tablet, 20 MG PO QHS 01/30/18 Atorvastatin* (Atorvastatin*) 40 Mg Tablet, 40 MG PO QHS, #30 TAB 07/07/16 Hydralazine Hcl* (Hydralazine Hcl*) 50 Mg Tab, 50 MG PO TID, #90 TAB 07/07/16 Valsartan (Valsartan) 320 Mg Tablet, 320 MG ORAL DAILY, #30 05/16/16 Tamsulosin Hcl* (Tamsulosin Hcl*) 0.4 Mg Cap.er.24h, 0.4 MG ORAL DAILY, #90 05/16/16 Amlodipine Besylate* (Amlodipine Besylate*) 10 Mg Tablet, 10 MG ORAL DAILY, #180 05/16/16 Allergies Allergies: Coded Allergies: No Known Allergy (Unverified , 01/30/18) PMhx/Soc Reviewed in chart. As per HPI History of Surgery: Yes (Bilateral neck surgeries) Anesthesia Reaction: No Hx Neurological Disorder: Yes (numbness on the fingers) Hx Respiratory Disorders: No Hx Cardiac Disorders: Yes (Hypertension, CHF, HYPERLIPIDEMIA) Hx Psychiatric Problems: No Hx Miscellaneous Medical Probl: Yes (BPH) Hx Alcohol Use: No Hx Substance Use: No Hx Tobacco Use: Yes (smoked since 17 years old and quit at age 57) Smoking Status: Former smoker FmHx No sudden cardiac or cancer Physical Exam Vitals Vital Signs Date Temp Pulse Resp B/P (MAP) Pulse Ox O2 O2 Flow FiO2 Time Delivery Rate 01/30/18 Nasal 3 14:08 Cannula 01/30/18 98.1 81 24 198/85 99 13:41 (122) Physical Exam Const: Mild distress Head: Atraumatic Eyes: Normal Conjunctiva ENT: Normal External Ears, Nose and Mouth. Neck: Full range of motion. Nontender. JVD. Resp: Tachypneic. Breath sounds decreased at the bases but otherwise clear without rales, rhonchi or wheezes. Cardio: Regular rate and rhythm, no murmurs Abd: Soft, non tender, non distended. Normal bowel sounds Skin: No petechiae or rashes Back: No midline or flank tenderness Ext: No cyanosis, or edema Neur: Awake and alert. No focal deficit. Psych: Cooperative. Anxious but not depressed. Result Diagram: 01/30/18 1400 01/30/18 1400 Results 24 hrs Laboratory Tests Test 01/30/18 14:00 White Blood Count 4.1 10^3/ul Red Blood Count 4.84 10^6/ul Hemoglobin 11.8 g/dl Hematocrit 37.1 % Mean Corpuscular Volume 76.7 fl Mean Corpuscular Hemoglobin 24.4 pg Mean Corpuscular Hemoglobin Concent 31.8 g/dl Red Cell Distribution Width 17.7 % Platelet Count 137 10^3/UL Mean Platelet Volume fl Immature Granulocytes % 0.200 % Neutrophils % 51.2 % Lymphocytes % 37.6 % Monocytes % 9.1 % Eosinophils % 1.2 % Basophils % 0.7 % Nucleated Red Blood Cells % 0.0 /100WBC Immature Granulocytes # 0.010 10^3/ul Neutrophils # 2.1 10^3/ul Lymphocytes # 1.5 10^3/ul Monocytes # 0.4 10^3/ul Eosinophils # 0.1 10^3/ul Basophils # 0.0 10^3/ul Nucleated Red Blood Cells # 0.0 10^3/ul Sodium Level 141 mmol/L Potassium Level 3.8 mmol/L Chloride Level 104 mmol/L Carbon Dioxide Level 27 mmol/L Anion Gap 10 Blood Urea Nitrogen 10 mg/dl Creatinine 0.80 mg/dl Est Glomerular Filtrat Rate mL/min mL/min Glucose Level 102 mg/dl Calcium Level 8.7 mg/dl Total Bilirubin 0.4 mg/dl Direct Bilirubin 0.00 mg/dl Indirect Bilirubin 0.4 mg/dl Aspartate Amino Transf (AST/SGOT) 39 IU/L Alanine Aminotransferase (ALT/SGPT) 32 IU/L Alkaline Phosphatase 75 IU/L Troponin I 0.084 ng/ml B-Type Natriuretic Peptide 3200 PG/ML Total Protein 6.4 g/dl Albumin 3.4 g/dl Globulin 3.00 g/dl Albumin/Globulin Ratio 1.13 Current Medications Medications Dose Sig/Jama Start Time Status Last (Trade) Ordered Route PRN Stop Time Admin Dose Reason Admin Furosemide 20 mg ONCE ONCE 01/30/18 DC 01/30/18 (Lasix) IV 14:30 14:37 01/30/18 14:31 1 inch ONCE ONCE 01/30/18 DC 01/30/18 Nitroglycerin TD 14:30 14:36 01/30/18 (Nitroglyceri 14:31 n 2% Oint) Aspirin 325 mg ONCE ONCE 01/30/18 DC 01/30/18 (Aspirin) PO 14:30 14:36 01/30/18 14:31 Procedures/MDM DOCUMENTS REVIEWED: ED nurse, prior ED, prior records including admission 05/2016. Echocardiogram revealed normal systolic function with ejection fraction of 65%. Lexicon stress test was negative for ischemia. EKG: Time: 1052. Sinus rhythm. Ventricular rate 63. Left axis deviation. Q waves in leads V1 through V3. No acute ST segment elevation or depression. No ectopy. My Interpretation IMAGING: PROCEDURE: XR chest. CLINICAL INDICATION: Shortness of breath TECHNIQUE: A single portable view of the chest was obtained. COMPARISON: 07/07/2016 FINDINGS: Heart is enlarged. Aortic arch is atherosclerotic. There is no pneumothorax. There are small bilateral pleural effusions and bibasilar atelectasis. There are mild bilateral lower lung interstitial infiltrates.. Surgical clips superimpose the right lower neck. IMPRESSION: 1. Cardiomegaly, aortic atherosclerosis and mild pulmonary edema pattern. 2. Small bilateral pleural effusions and mild bibasilar atelectasis. RPTAT: EE Physician David Date Time Electronically viewed and signed by Marino Morelos Physician on 01/30/2018 14:11 RM/ ED COURSE: [] REEXAMINATION/REEVALUATION: Time: [] MEDICAL DECISION MAKIN-year-old male with history of hypertension, hyperlipidemia and diastolic CHF presents to the ED via rescue ambulance complaining of acute onset of shortness of breath while walking upstairs just prior to arrival. Admit to [med/surg, telemetry, ICU] for further evaluation and management. PATIENT CARE TRANSITIONED: Time: 1540, Dr. Thibodeaux Counseled patient regarding diagnosis, diagnostic results and plan for ad mission. Departure Diagnosis: Primary Impression: Shortness of breath Additional Impressions: Pulmonary edema Chronicity: acute Qualified Codes: J81.0 - Acute pulmonary edema Congestive heart failure Heart failure type: unspecified Heart failure chronicity: acute Qualified Codes: I50.9 - Heart failure, unspecified Hypertension Hypertension type: essential hypertension Qualified Codes: I10 - Essential (primary) hypertension Condition: Serious ALVINA TELLO MD Jan 30, 2018 13:58
[2018-01-30] MEDS ORDERED: FUROSEMIDE 20 MG INJ IV ONE (14:30)
[2018-01-30] MEDS ORDERED: NITROGLYCERIN 2% 1 GM OINT PKT TD ONE (14:30)
[2018-01-30] MEDS ORDERED: ASPIRIN 325 MG TAB PO ONE (14:30)
[2018-01-30] MEDS ORDERED: ISM20 PO (15:05)
[2018-01-30] MEDS ORDERED: SIMV40TA3 PO (15:06)
[2018-01-30] MEDS ORDERED: DOXA2TAB PO (15:07)
[2018-01-30] MEDS ORDERED: ONDANSETRON 4 MG INJ IV PRN ×2 (16:30→18:00)
[2018-01-30] MEDS ORDERED: ACETAMINOPHEN 325 MG TAB PO PRN ×2 (16:30→18:00)
[2018-01-30] MEDS ORDERED: BISACODYL 10 MG SUPP PR PRN (18:00)
[2018-01-30] MEDS ORDERED: MAGNESIUM HYDROXIDE 30ML CUP PO PRN (18:00)
[2018-01-30] MEDS ORDERED: NITROGLYCERIN (SL) 0.4 MG TAB SL PRN (18:00)
[2018-01-30] MEDS ORDERED: METHOCARBAMOL 750 MG TAB PO PRN (18:00)
[2018-01-30] MEDS ORDERED: HYDROCODONE/APAP (5/325) TAB PO PRN (18:00)
[2018-01-30] MEDS ORDERED: NACL 0.9% 3 ML SYG IV SCH (18:00)
[2018-01-30] MEDS ORDERED: hydrALAzine 20 MG INJ IV PRN (18:00)
[2018-01-30] MEDS ORDERED: DOCUSATE SODIUM 100 MG CAP PO PRN (18:00)
--- NOTE | 2018-01-30 18:09 | HP ---
Date/Time of Note Date/Time of Note DATE: 01/30/18 TIME: 17:46 Assessment/Plan VTE Prophylaxis SCD applied (from Nsg): No SCD contraindicated: low risk/ambulating Pharmacological prophylaxis: LMWH Lines/Catheters IV Catheter Type (from Nrsg): Saline Lock Assessment/Plan Assessment/Plan 87-year-old male with: 1. Dyspnea and dyspnea on exertion, mild CHF exacerbation on chest x-ray. Patient responding to diuresis fairly well already. Continue Lasix 20 mg IV twice daily 2D echocardiogram to reevaluate ejection fraction Rule out acute coronary syndrome Blood pressure control 2. Hypertension: Resuming home medications including beta-blockers, nitrates, hydralazine and ARB 3. Hyperlipidemia: Continue statin therapy 4. Peripheral vascular disease, status post bilateral carotid enterectomy. C ontinue statin therapy along with antiplatelets and blood pressure control. 5. BPH: Continue Flomax, will discontinue Cardura for now. Prophylaxis: Lovenox for DVT prophylaxis, patient tolerating p.o. Disposition: Telemetry observation, diuresis, blood pressure control, rule out ACS and follow-up on echocardiogram and repeat chest x-ray results in a.m. Result Diagram: 01/30/18 1400 01/30/18 1400 Results 24hrs Laboratory Tests Test 01/30/18 14:00 White Blood Count 4.1 #L Red Blood Count 4.84 Hemoglobin 11.8 L Hematocrit 37.1 L Mean Corpuscular Volume 76.7 L Mean Corpuscular Hemoglobin 24.4 L Mean Corpuscular Hemoglobin Concent 31.8 L Red Cell Distribution Width 17.7 H Platelet Count 137 #L Mean Platelet Volume Immature Granulocytes % 0.200 Neutrophils % 51.2 Lymphocytes % 37.6 Monocytes % 9.1 Eosinophils % 1.2 Basophils % 0.7 Nucleated Red Blood Cells % 0.0 Immature Granulocytes # 0.010 Neutrophils # 2.1 Lymphocytes # 1.5 Monocytes # 0.4 Eosinophils # 0.1 Basophils # 0.0 Nucleated Red Blood Cells # 0.0 Sodium Level 141 Potassium Level 3.8 Chloride Level 104 Carbon Dioxide Level 27 Anion Gap 10 Blood Urea Nitrogen 10 Creatinine 0.80 Est Glomerular Filtrat Rate mL/min Glucose Level 102 Calcium Level 8.7 Total Bilirubin 0.4 Direct Bilirubin 0.00 Indirect Bilirubin 0.4 Aspartate Amino Transf (AST/SGOT) 39 Alanine Aminotransferase (ALT/SGPT) 32 Alkaline Phosphatase 75 Troponin I 0.084 B-Type Natriuretic Peptide 3200 H Total Protein 6.4 Albumin 3.4 Globulin 3.00 Albumin/Globulin Ratio 1.13 HPI/ROS Admit Date/Time Admit Date/Time Hx of Present Illness Chief complaint: Worsening dyspnea on exertion and shortness of breath History of presenting illness: 87-year-old male with history of severe hypertension, hyperlipidemia, BPH, previous diagnosis of diastolic congestive heart failure, echocardiogram in May 2016 with ejection fraction of 65% and severe concentric LVH who presented the emergency department with complaint of increasing dyspnea on exertion and more recently today, having shortness of breath at rest. He called 911, in the emergency department he is found to be in CHF exacerbation with pulmonary edema, mild seen on chest x-ray. He feels better with 2 L nasal cannula on board, he has been responding to Lasix 20 mg IV very well with significant diuresis. Patient reports that over the past few weeks, he has been having worsening dyspnea on exertion when going up his 16 stairs at home, he always has to stop to catch his breath. This morning after having breakfast and sitting on the chair he started getting short of breath. He also reports that he does have to adjust his bed in order to have his head up when he is sleeping and describes orthopnea when he lies flat. Patient is aware he has congestive heart failure but he is reporting that he was told 6 months ago whereas on our records here at [facility] he was diagnosed with diastolic heart failure almost a year and a half ago. His medications have been reviewed, he is on beta- blockers and antihypertensives but not on diuretics. 2D echocardiogram in May 2016 did show severe concentric LVH and an ejection fraction of 65%, stress test done at that time was negative for significant ischemic area. He denies any lower extremity edema, chest pains or chest pressure, diaphoresis, palpitations. Patient's BNP is 3200 and first troponin negative. He will be monitored ov ernight on telemetry, ruled out for acute coronary syndrome, blood pressure control and diuresis. ROS Constitutional: no complaints, fatigue Eyes: no complaints ENT: no complaints Respiratory: shortness of breath (Mostly dyspnea on exertion) Cardiovascular: lightheadedness (With dyspnea on exertion), orthopenea Gastrointestinal: no complaints Genitourinary: no complaints Musculoskeletal: no complaints Skin: no complaints Neurologic: no complaints Endocrine: no complaints Lymphatic: no complaints Psychological: no complaints Immunologic: no complaints PMH/Family/Social Past Medical History 1. Congestive heart failure, patient reports that he was told and diagnosed 6 months ago. Based on records from [facility], patient was here in May 2016 and had a diagnosis of congestive heart failure diastolic likely secondary to hypertension ejection fraction of 65%. Stress test was done at that time. 2. Hypertension 3. Hyperlipidemia 4. Peripheral vascular disease status post bilateral carotid enterectomy 5. Benign prostatic hypertrophy Medications Current Medications Ondansetron HCl (Zofran Inj) 4 mg ER BRIDGE PRN IV NAUSEA AND/OR VOMITING; Start 01/30/18 at 16:30; Stop 01/31/18 at 16:29 Acetaminophen (Tylenol Tab) 650 mg ER BRIDGE PRN PO MILD PAIN(1-3)OR ELEVATED TEMP; Start 01/30/18 at 16:30; Stop 01/31/18 at 16:29 Atorvastatin Calcium (Lipitor) 40 mg QHS PO ; Start 01/30/18 at 21:00; Status UNV Doxazosin Mesylate (Cardura) 2 mg QHS PO ; Start 01/30/18 at 21:00; Status UNV Hydralazine HCl (Apresoline) 50 mg TID PO ; Start 01/30/18 at 21:00; Status UNV Acetaminophen/ Hydrocodone Bitart ([place] (5/325)) 1 tab Q6 PRN PO SEVERE PAIN LEVEL 7-10; Start 01/30/18 at 18:00; Status UNV Isosorbide Mononitrate (Ismo) 20 mg QHS PO ; Start 01/30/18 at 21:00; Status UNV Methocarbamol (Robaxin) 750 mg Q6H PRN PO MUSCLE SPASMS; Start 01/30/18 at 18:00; Status UNV Metoprolol Succinate (Toprol Xl) 25 mg DAILY PO ; Start 01/31/18 at 09:00; Status UNV Tamsulosin HCl (Flomax) 0.4 mg DAILY PO ; Start 01/31/18 at 09:00 Losartan Potassium (Cozaar) 50 mg BID PO ; Start 01/30/18 at 21:00; Status UNV Hydralazine HCl (Apresoline) 10 mg Q8 PRN IV ELEVATED BLOOD PRESSURE; Start 01/30/18 at 18:00; Status UNV IV Flush (NS 3 ml) 3 ml PER PROTOCOL IV ; Start 01/30/18 at 18:00; Status UNV Ondansetron HCl (Zofran Inj) 4 mg Q6H PRN IV NAUSEA AND/OR VOMITING; Start 01/30/18 at 18:00; Status UNV Aspirin (Aspirin) 81 mg DAILY PO ; Start 01/31/18 at 09:00; Status UNV Nitroglycerin (Nitroglycerin (Sl Tab) 0.4 Mg) 1 tab Q5M PRN SL CHEST PAIN; Start 01/30/18 at 18:00; Status UNV Acetaminophen (Tylenol Tab) 650 mg Q6H PRN PO PAIN LEVEL 1-3 OR FEVER; Start 01/30/18 at 18:00; Status UNV Docusate Sodium (Colace) 100 mg Q12H PRN PO CONSTIPATION; Start 01/30/18 at 18:00; Status UNV Magnesium Hydroxide (Milk Of Mag) 30 ml DAILY PRN PO CONSTIPATION; Start 01/30/18 at 18:00; Status UNV Bisacodyl (Dulcolax Supp) 10 mg DAILY PRN [place] CONSTIPATION; Start 01/30/18 at 18:00; Status UNV Enoxaparin Sodium (Lovenox) 40 mg DAILY SC ; Start 01/31/18 at 09:00; Status UNV Furosemide (Lasix) 20 mg BID DIURETICS IV ; Start 01/31/18 at 06:00; Status UNV Coded Allergies: No Known Allergy (Unverified , 01/30/18) Past Surgical History Status post bilateral carotid enterectomy Family History Significant Family History: no pertinent family hx Social History Alcohol Use: none Smoking Status: Former smoker (Quit 35 years ago) Drug Use: none Exam/Review of Systems Vital Signs Vitals Vital Signs Date Temp Pulse Resp B/P (MAP) Pulse Ox O2 O2 Flow FiO2 Time Delivery Rate 01/30/18 65 18 183/77 99 Room Air 16:05 (112) 01/30/18 3 14:08 01/30/18 98.1 13:41 Exam Constitutional: alert, oriented, well developed Head: normocephalic, atraumatic Eyes: nl conjunctiva, EOMI, nl lids Neck: supple Respiratory: normal air movement (Good air movement), crackles/rales (Scattered crackles throughout lung sanchez), other (Status post Lasix, lung exam fairly clear.) Cardiovascular: regular rate and rhythm, nl pulses Gastrointestinal: soft, non-tender Musculoskeletal: nl extremities to inspection Extremities: normal pulses, other (No edema, clubbing or cyanosis) Neurological: OFFICE CORRESPONDENT II-XII intact, nl mental status, nl speech, nl strength Additional Comments PROCEDURE: XR chest. CLINICAL INDICATION: Shortness of breath TECHNIQUE: A single portable view of the chest was obtained. COMPARISON: 07/07/2016 FINDINGS: Heart is enlarged. Aortic arch is atherosclerotic. There is no pneumothorax. There are small bilateral pleural effusions and bibasilar atelectasis. There are mild bilateral lower lung interstitial infiltrates.. Surgical clips superimpose the right lower neck. IMPRESSION: 1. Cardiomegaly, aortic atherosclerosis and mild pulmonary edema pattern. 2. Small bilateral pleural effusions and mild bibasilar atelectasis. RPTAT: EE Physician David Date Time Electronically viewed and signed by Physician David on 01/30/2018 14:11 RM/ Echocardiogram Report Patient Name: JAIMEE NASSAR Gender: Male Date: 1930 Study Date: 17-May-2016 [place] [employer] Operator: Yudelka Chowdhury MELANIE Location: [facility] Ref. Physician: JARED MENENDEZ Quality: Good Procedures: Transthoracic echocardiogram with complete 2D, M-Mode, and doppler examination. Indications: Congestive Heart Failure. 2D/M Mode Doppler Measurement Value Normal Ranges Measurement Value Normal Ranges LVIDd 2D 4.5 3.5 - 5.6 cm AV Peak Raudel 1.2 m/sec LVIDs 2D 2.5 2.1 - 4.1 cm AV Peak PG 6.0 mmHg FS 2D 45.1 % LVOT Peak Raudel 0.9 m/sec LVPWd 2D 1.8 0.6 - 1.1 cm LVOT Peak PG 3.0 mmHg IVSd 2D 1.7 0.6 - 1.1 cm MV E Peak Raudel 0.9 m/sec IVS/LVPW 2D 0.9 MV A Peak Raudel 0.5 m/sec AoR Diam 2D 2.8 2.0 - 3.7 cm MV E/A 1.9 LA/Ao 2D 2 0 - 1 MV Decel Time 246 msec EDV 2D 91.1 cm3 MV E/A 1.9 ESV 2D 15.1 cm3 TR Peak Raudel 2.4 m/sec LA Dimen 2D 4.2 2.3 - 4.0 cm TR Peak PG 23.0 mmHg RVSP 26.0 mmHg Findings Left Ventricle: Normal left ventricular systolic function. Normal left ventricular cavity size. Severe concentric left ventricular hypertrophy. Ejection fraction is visually estimated at 65 %. Right Ventricle: Normal right ventricular size. Normal right ventricular systolic function. Left Atrium: There is mild enlargement of left atrium. Right Atrium: The right atrium is normal in size. Mitral Valve: Mitral valve leaflets appear mildly thickened. Mild mitral annular calcification. Mild mitral valve regurgitation. Aortic Valve: No significant aortic stenosis or insufficiency. Aortic cusps appear mildly calcified. Tricuspid Valve: Normal appearance of the tricuspid valve. Estimated peak PA systolic pressure 26 mmHg. There is trace tricuspid regurgitation. Pulmonic Valve: Normal pulmonic valve appearance. There is trace pulmonic regurgitation. Pericardium: Trivial pericardial effusion. Aorta: Normal aortic root. IVC: Normal size and normal respiratory collapse consistent with normal right atrial pressure. Conclusions 1. Normal left ventricular systolic function. Normal left ventricular cavity size. Severe concentric left ventricular hypertrophy. Ejection fraction is visually estimated at 65 %. 2. No significant aortic stenosis or insufficiency. Aortic cusps appear mildly calcified. 3. Normal appearance of the tricuspid valve. Estimated peak PA systolic pressure 26 mmHg. There is trace tricuspid regurgitation. 4. Mitral valve leaflets appear mildly thickened. Mild mitral annular calcification. Mild mitral valve regurgitation. Electronically Signed By: Tyshawn Oreilly 17-May-2016 17:39:23 -0700 EKG: sinus rhythm, 63 bpm. Left axis deviation/LVH Q waves in leads V1 through V3. No acute ST segment elevation or depression. SHERRIE MUÑOZ Jan 30, 2018 17:57
[2018-01-30] MEDS ORDERED: AMLODIPINE 10 MG TAB PO ONE (19:00)
--- NOTE | 2018-01-30 19:05 | NUR ---
NURSES NOTES: @1820 PT BROUGHT UP TO UNIT FROM ER UNDER THE SERVICE OF DR. MUÑOZ. PT DENIES PAIN OR DISCOMFORT AT THIS TIME. NO S/S OF RESPIRATORY DISTRESS PT ON 3L VIA NC SATURATING AT 100%. PT CLEAN AND DRY. NOTED WITH IV HEPLOCK ON RIGHT FOREARM. PT SBP >200, PAGED AND RECEIVED TELEPHONE ORDERS. SEE PHYSICIAN ORDER SHEET. ORIENTED PATIENT TO THE UNIT. FALL AND SAFETY PRECAUTIONS IMPLEMENTED CALL LIGHT WITHIN REACH ABLE TO MAKE NEEDS KNOWN BED IN LOWEST POSITION BRAKES LOCKED ROOM FREE OF CLUTTER. PERSONAL BELONGINGS PLACED CLOSE TO PATIENT. WILL ENDORSE TO CUTTER FINISHER RN ACCORDINGLY.
--- NOTE | 2018-01-30 19:29 | NUR ---
EOSS: PT ENDORSED TO OLAMIDE HASSAN FROM PROP CUTTER AT THIS TIME. ENDORSED AMLODIPINE X 1 AND TO FOLLOW UP WITH INPATIENT EKG. AT THIS TIME ASHLY BELTRÁN AT BEDSIDE COMPLETING INPATIENT EKG PT'S EKG STRIP SHOWS ST ELEVATION. PT LAYING IN BED. PT CLEAN AND DRY. DENIES CHEST PAIN OR DISCOMFORT AT THIS TIME. NO S/S OF RESPIRATORY DISTRESS PT ON 3L VIA NC SATURATING AT 100%. PT CLEAN AND DRY. FALL AND SAFETY PRECAUTIONS IMPLEMENTED, CALL LIGHT WITHIN REACH ABLE TO MAKE NEEDS KNOWN BED IN LOWEST POSITION BRAKES LOCKED ROOM FREE OF CLUTTER. PERSONAL BELONGINGS PLACED CLOSE TO PATIENT.
[2018-01-30] MEDS ORDERED: ENALAPRILAT 1.25 MG INJ IV ONE (19:30)
[2018-01-30] MEDS: ATORVASTATIN 40 MG TAB PO SCH (20:16)
[2018-01-30] MEDS: LOSARTAN 50 MG TAB PO SCH (20:17)
[2018-01-30] MEDS ORDERED: DOXAZOSIN 2 MG TAB PO SCH (21:00)
[2018-01-30] MEDS: ISOSORBIDE MONONITRATE 20 MG TAB PO SCH (22:51)
--- NOTE | 2018-01-30 23:17 | NUR ---
Positive Troponin 0.[address] Thibodeaux and informed her of patient's positive Troponin level of 0.121 and that the EKG indicated sinus rhythm w/ 1st degree AV block and left axis deviation. Patient denies chest pain and SOB and states that he is "comfortable and feels better". VSS; B/P 125/60. stated that she will input orders. Will continue to monitor and assess.
[2018-01-30] MEDS ORDERED: ENOXAPARIN 80 MG/0.8 ML SYG SC SCH (23:30)
[2018-01-31] VITALS (13 sets, daily range): BP systolic 104–160; BP diastolic 51–72; PULSE 54–72; RESP 18–20
--- NOTE | 2018-01-31 03:47 | NUR ---
Positive Troponin 0.[address] Thibodeaux and informed her of patient's positive Troponin level of 0.166. Patient remains asymptomatic; patient denies chest pain/pressure and SOB. VSS. Patient received a one time dose of Lovenox 80mg after previous positive troponin. No new orders. Will continue to monitor and assess.
--- NOTE | 2018-01-31 06:13 | NUR ---
EOSS: Pt A&O x 4. VSS. Troponins positive, most recent was 0.166, Dr. Thibodeaux aware. Patient denies pain. No current s/s of distress, resting in bed comfortably. Fall precautions maintained. Hourly rounding performed. Call light within reach; instructed pt to call for assistance as needed. Pt clean and dry; all needs and concerns attended to. Will endorse pt to AM RN for continuity of care.
[2018-01-31] MEDS: FUROSEMIDE 20 MG INJ IV SCH ×2 (06:29→17:37)
[2018-01-31] MEDS: LOSARTAN 50 MG TAB PO SCH ×2 (08:03→21:28)
[2018-01-31] MEDS: TAMSULOSIN (SR) 0.4 MG CAP PO SCH (08:03)
[2018-01-31] MEDS: ASPIRIN 81 MG TAB PO SCH (08:03)
[2018-01-31] MEDS: METOPROLOL (XL) 25 MG TAB PO SCH (08:04)
[2018-01-31] MEDS: ENOXAPARIN 40 MG/0.4 ML SYG SC SCH (08:35)
--- NOTE | 2018-01-31 10:33 | PN ---
Date/Time of Note Date/Time of Note DATE: 01/31/18 TIME: 10:27 Assessment/Plan VTE Prophylaxis Risk score (from Ns)>0 risk: 5 SCD applied (from Nsg): Yes Pharmacological prophylaxis: LMWH Lines/Catheters IV Catheter Type (from Nrs): Saline Lock Urinary Cath still in place: No Assessment/Plan Assessment/Plan 87-year-old male with: 1. Dyspnea and dyspnea on exertion, mild CHF exacerbation on chest x-ray. Patient responding to diuresis fairly well. Continue Lasix 20 mg IV twice daily 2D echocardiogram done this morning, reading pending. Cardiac enzymes trended up, he did get a full dose of Lovenox last night, repeat cardiac enzymes pending this morning. Cardiology consult pending. Patient had a stress test last year. Blood pressure control 2. Hypertension status post hypertensive urgency overnight, medication adjusted, blood pressure better controlled this morning. Continue current beta- blockers, nitrates, hydralazine and ARB. Norvasc added at night. Will titrate hydralazine up as needed. Further recommendations after cardiology evaluation. 3. Elevated troponin, noted overnight, continue current medication, antiplatelet therapy. Will adjust Lovenox to treatment dose if needed. Patient did get a full dose last night. 4. Hyperlipidemia: Continue statin therapy 5. Peripheral vascular disease, status post bilateral carotid enterectomy. Continue statin therapy along with antiplatelets and blood pressure control. 6. BPH: Continue Flomax. Prophylaxis: Lovenox for DVT prophylaxis, patient tolerating p.o. Disposition: Telemetry observation, diuresis, trend troponin, follow-up cardiology recommendations, blood pressure control, follow-up chest x-ray. Result Diagram: 01/31/1822001/31/18 0221 Results 24hrs Laboratory Tests Test 01/30/18 14:00 01/30/18 19:53 01/31/18 02:21 White Blood Count 4.1 #L 4.6 L Red Blood Count 4.84 4.66 L Hemoglobin 11.8 L 11.1 L Hematocrit 37.1 L 35.5 L Mean Corpuscular Volume 76.7 L 76.2 L Mean Corpuscular Hemoglobin 24.4 L 23.8 L Mean Corpuscular 31.8 L 31.3 L Hemoglobin Concent Red Cell Distribution Width 17.7 H 17.5 H Platelet Count 137 #L 134 L Mean Platelet Volume 10.9 H Immature Granulocytes % 0.200 0.200 Neutrophils % 51.2 55.7 Lymphocytes % 37.6 31.4 Monocytes % 9.1 11.2 H Eosinophils % 1.2 1.1 Basophils % 0.7 0.4 Nucleated Red Blood Cells % 0.0 0.0 Immature Granulocytes # 0.010 0.010 Neutrophils # 2.1 2.5 Lymphocytes # 1.5 1.4 Monocytes # 0.4 0.5 Eosinophils # 0.1 0.1 Basophils # 0.0 0.0 Nucleated Red Blood Cells # 0.0 0.0 Sodium Level 141 143 Potassium Level 3.8 4.0 Chloride Level 104 101 Carbon Dioxide Level 27 34 H Anion Gap 10 8 Blood Urea Nitrogen 10 12 Creatinine 0.80 0.92 Est Glomerular Filtrat Rate mL/min Glucose Level 102 99 Calcium Level 8.7 8.7 Total Bilirubin 0.4 0.4 Direct Bilirubin 0.00 0.00 Indirect Bilirubin 0.4 0.4 Aspartate Amino 39 32 Transf (AST/SGOT) Alanine 32 30 Aminotransferase (ALT/SGPT) Alkaline Phosphatase 75 56 Troponin I 0.084 0.121 H 0.166 *H B-Type Natriuretic Peptide 3200 H Total Protein 6.4 5.6 L Albumin 3.4 3.1 L Globulin 3.00 2.50 Albumin/Globulin Ratio 1.13 1.24 Creatine Kinase 368 H 253 H Creatine Kinase Index 2.1 2.1 Creatinine Kinase MB (Mass) 7.57 H 5.24 H Magnesium Level 2.0 Thyroid Stimulating 1.330 Hormone (TSH) Free Thyroxine 1.77 Subjective 24 Hr Interval Summary Free Text/Dictation Patient feels better today, he feels that he has less dyspnea on exertion. Pressure is better controlled this morning. Troponin did go up to 0.166 overnight, repeat cardiac enzymes still pending this morning. 2D echocardiogram done. Cardiology consulted. Exam/Review of Systems Vital Signs Vitals Vital Signs Date Temp Pulse Resp B/P (MAP) Pulse Ox O2 O2 Flow FiO2 Time Delivery Rate 01/31/18 63 08:26 01/31/18 98.1 18 160/72 100 Nasal 07:51 (101) Cannula 01/31/18 2.0 07:47 Intake and Output 01/30/18 01/30/18 01/31/18 1515:00 23:00 07:00 IntakeIntake Total 250 ml 300 ml OutputOutput Total 2975 ml 700 ml BalanceBalance -2725 ml -400 ml Exam Constitutional: alert, oriented, well developed Respiratory: clear to auscultation, normal air movement Cardiovascular: regular rate and rhythm, nl pulses Gastrointestinal: soft, non-tender Musculoskeletal: nl extremities to inspection Extremities: normal pulses, other (No edema, clubbing or cyanosis) Neurological: MERCHANDISING INTERNSHIP II-XII intact, nl mental status, nl speech, nl strength Medications Medications Current Medications Atorvastatin Calcium (Lipitor) 40 mg QHS PO Last administered on 01/30/18 20:16; Admin Dose 40 MG; Start 01/30/18 at 21:00 Hydralazine HCl (Apresoline) 50 mg TID PO Last administered on 01/31/18 08:04; Admin Dose 50 MG; Start 01/30/18 at 21:00 Acetaminophen/ Hydrocodone Bitart ([place] (5/325)) 1 tab Q6H PRN PO SEVERE PAIN LEVEL 7-10; Start 01/30/18 at 18:00 Isosorbide Mononitrate (Ismo) 20 mg QHS PO Last administered on 01/30/18 22:51; Admin Dose 20 MG; Start 01/30/18 at 21:00 Methocarbamol (Robaxin) 750 mg Q6H PRN PO MUSCLE SPASMS; Start 01/30/18 at 18:00 Metoprolol Succinate (Toprol Xl) 25 mg DAILY PO Last administered on 01/31/18 08:04; Admin Dose 25 MG; Start 01/31/18 at 09:00 Tamsulosin HCl (Flomax) 0.4 mg DAILY PO Last administered on 01/31/18 08:03; Admin Dose 0.4 MG; Start 01/31/18 at 09:00 Losartan Potassium (Cozaar) 50 mg BID PO Last administered on 01/31/18 08:03; Admin Dose 50 MG; Start 01/30/18 at 21:00 Hydralazine HCl (Apresoline) 10 mg Q8H PRN IV for SBP>160 Last administered on 01/30/18 18:32; Admin Dose 10 MG; Start 01/30/18 at 18:00 IV Flush (NS 3 ml) 3 ml PER PROTOCOL IV ; Start 01/30/18 at 18:00 Ondansetron HCl (Zofran Inj) 4 mg Q6H PRN IV NAUSEA AND/OR VOMITING; Start 01/30/18 at 18:00 Aspirin (Aspirin) 81 mg DAILY PO Last administered on 01/31/18at 08:03; Admin Dose 81 MG; Start 01/31/18 at 09:00 Nitroglycerin (Nitroglycerin (Sl Tab) 0.4 Mg) 1 tab Q5M PRN SL CHEST PAIN; Start 01/30/18 at 18:00 Acetaminophen (Tylenol Tab) 650 mg Q6H PRN PO PAIN LEVEL 1-3 OR FEVER; Start 01/30/18 at 18:00 Docusate Sodium (Colace) 100 mg Q12H PRN PO CONSTIPATION; Start 01/30/18 at 18:00 Magnesium Hydroxide (Milk Of Mag) 30 ml DAILY PRN PO CONSTIPATION; Start 01/30/18 at 18:00 Bisacodyl (Dulcolax Supp) 10 mg DAILY PRN [place] CONSTIPATION; Start 01/30/18 at 18:00 Enoxaparin Sodium (Lovenox) 40 mg DAILY SC Last administered on 01/31/18at 08:35; Admin Dose 40 MG; Start 01/31/18 at 09:00 Furosemide (Lasix) 20 mg BID DIURETICS IV Last administered on 01/31/18at 06:29; Admin Dose 20 MG; Start 01/31/18 at 06:00 SHERRIE MUÑOZ Jan 31, 2018 10:33
--- NOTE | 2018-01-31 12:22 | CONS ---
Date/Time of Note Date/Time of Note DATE: 01/31/18 TIME: 12:21 Assessment/Plan Assessment/Plan Assessment/Plan 87 yo with CHF, DD, flush pulm edema and NSTEMI by CK-MB trend - stress test advised # [id number] Result Diagram: 01/31/18 0221 01/31/18 0221 Results 24hrs Laboratory Tests Test 01/30/18 14:00 01/30/18 19:53 01/31/18 02:21 01/31/18 10:05 White Blood 4.1 #L 4.6 L Count Red Blood Count 4.84 4.66 L Hemoglobin 11.8 L 11.1 L Hematocrit 37.1 L 35.5 L Mean Corpuscular 76.7 L 76.2 L Volume Mean Corpuscular 24.4 L 23.8 L Hemoglobin Mean Corpuscular 31.8 L 31.3 L Hemoglobin Josie nt Red Cell 17.7 H 17.5 H Distribution Width Platelet Count 137 #L 134 L Mean Platelet 10.9 H Volume Immature 0.200 0.200 Granulocytes % Neutrophils % 51.2 55.7 Lymphocytes % 37.6 31.4 Monocytes % 9.1 11.2 H Eosinophils % 1.2 1.1 Basophils % 0.7 0.4 Nucleated Red 0.0 0.0 Blood Cells % Immature 0.010 0.010 Granulocytes # Neutrophils # 2.1 2.5 Lymphocytes # 1.5 1.4 Monocytes # 0.4 0.5 Eosinophils # 0.1 0.1 Basophils # 0.0 0.0 Nucleated Red 0.0 0.0 Blood Cells # Sodium Level 141 143 Potassium Level 3.8 4.0 Chloride Level 104 101 Carbon Dioxide 27 34 H Level Anion Gap 10 8 Blood Urea 10 12 Nitrogen Creatinine 0.80 0.92 Est Glomerular Filtrat Rate mL/min Glucose Level 102 99 Calcium Level 8.7 8.7 Total Bilirubin 0.4 0.4 Direct Bilirubin 0.00 0.00 Indirect 0.4 0.4 Bilirubin Aspartate Amino 39 32 Transf (AST/SGOT ) Alanine 32 30 Aminotransferase (ALT/SGPT) Alkaline 75 56 Phosphatase Troponin I 0.084 0.121 H 0.166 *H 0.161 *H B-Type 3200 H Natriuretic Peptide Total Protein 6.4 5.6 L Albumin 3.4 3.1 L Globulin 3.00 2.50 Albumin/Globulin 1.13 1.24 Ratio Creatine Kinase 368 H 253 H 219 H Creatine Kinase 2.1 2.1 2.1 Index Creatinine 7.57 H 5.24 H 4.64 H Kinase MB (Mass) Magnesium Level 2.0 Thyroid 1.330 Stimulating Hormone (TSH) Free Thyroxine 1.77 Consultation Date/Type/Reason Admit Date/Time Jan 30, 2018 at 16:16 Initial Consult Date Exam/Review of Systems Vital Signs Vitals Vital Signs Date Temp Pulse Resp B/P (MAP) Pulse Ox O2 O2 Flow FiO2 Time Delivery Rate 01/31/18 59 12:02 01/31/18 97.8 18 145/66 100 Nasal 11:45 (92) Cannula 01/31/18 2.0 07:47 Intake and Output 01/30/18 01/30/18 01/31/18 1515:00 23:00 07:00 IntakeIntake Total 250 ml 300 ml OutputOutput Total 2975 ml 700 ml BalanceBalance -2725 ml -400 ml Medications Medications Current Medications Atorvastatin Calcium (Lipitor) 40 mg QHS PO Last administered on 01/30/18at 20:16; Admin Dose 40 MG; Start 01/30/18 at 21:00 Hydralazine HCl (Apresoline) 50 mg TID PO Last administered on 01/31/18at 12:08; Admin Dose 50 MG; Start 01/30/18 at 21:00 Acetaminophen/ Hydrocodone Bitart ([place] (5/325)) 1 tab Q6H PRN PO SEVERE PAIN LEVEL 7-10; Start 01/30/18 at 18:00 Isosorbide Mononitrate (Ismo) 20 mg QHS PO Last administered on 01/30/18at 22:51; Admin Dose 20 MG; Start 01/30/18 at 21:00 Methocarbamol (Robaxin) 750 mg Q6H PRN PO MUSCLE SPASMS; Start 01/30/18 at 18:00 Metoprolol Succinate (Toprol Xl) 25 mg DAILY PO Last administered on 01/31/18at 08:04; Admin Dose 25 MG; Start 01/31/18 at 09:00 Tamsulosin HCl (Flomax) 0.4 mg DAILY PO Last administered on 01/31/18at 08:03; Admin Dose 0.4 MG; Start 01/31/18 at 09:00 Losartan Potassium (Cozaar) 50 mg BID PO Last administered on 01/31/18 08:03; Admin Dose 50 MG; Start 01/30/18 at 21:00 Hydralazine HCl (Apresoline) 10 mg Q8H PRN IV for SBP>160 Last administered on 01/30/18at 18:32; Admin Dose 10 MG; Start 01/30/18 at 18:00 IV Flush (NS 3 ml) 3 ml PER PROTOCOL IV ; Start 01/30/18 at 18:00 Ondansetron HCl (Zofran Inj) 4 mg Q6H PRN IV NAUSEA AND/OR VOMITING; Start 01/30/18 at 18:00 Aspirin (Aspirin) 81 mg DAILY PO Last administered on 01/31/18at 08:03; Admin Dose 81 MG; Start 01/31/18 at 09:00 Nitroglycerin (Nitroglycerin (Sl Tab) 0.4 Mg) 1 tab Q5M PRN SL CHEST PAIN; Start 01/30/18 at 18:00 Acetaminophen (Tylenol Tab) 650 mg Q6H PRN PO PAIN LEVEL 1-3 OR FEVER; Start 01/30/18 at 18:00 Docusate Sodium (Colace) 100 mg Q12H PRN PO CONSTIPATION; Start 01/30/18 at 18:00 Magnesium Hydroxide (Milk Of Mag) 30 ml DAILY PRN PO CONSTIPATION; Start 01/30/18 at 18:00 Bisacodyl (Dulcolax Supp) 10 mg DAILY PRN ME CONSTIPATION; Start 01/30/18 at 18:00 Enoxaparin Sodium (Lovenox) 40 mg DAILY SC Last administered on 01/31/18at 08:35; Admin Dose 40 MG; Start 01/31/18 at 09:00 Furosemide (Lasix) 20 mg BID DIURETICS IV Last administered on 01/31/18at 06:29; Admin Dose 20 MG; Start 01/31/18 at 06:00 Amlodipine Besylate (Norvasc) 10 mg QHS PO ; Start 01/31/18 at 21:00 SHADY MALDONADO MD Jan 31, 2018 12:22
--- NOTE | 2018-01-31 12:50 | RADRPT ---
Echocardiogram Report Patient Name: JAIMEE NASSAR Gender: Male Date: 1930 Study Date: 31-Jan-2018 Cardiovascular Or Nurse: Yudelka Chowdhury [facility] Location: 602 Ref. Physician: LAUREN MUÑOZ Quality: Good Procedures: Transthoracic echocardiogram with complete 2D, M-Mode, and doppler examination. Indications: Congestive Heart Failure. 2D/M Mode Doppler Measurement Value Normal Ranges Measurement Value Normal Ranges LVIDd 2D 4.4 3.5 - 5.6 cm AV Peak Raudel 1.5 m/sec LVIDs 2D 2.9 2.1 - 4.1 cm AV Peak PG 9.0 mmHg LVPWd 2D 2.1 0.6 - 1.1 cm LVOT Peak Raudel 0.9 m/sec IVSd 2D 2.2 0.6 - 1.1 cm LVOT Peak PG 3.0 mmHg AoR Diam 2D 3.2 2.0 - 3.7 cm TR Peak Raudel 3.0 m/sec LA/Ao 2D 1 0 - 1 TR Peak PG 35.0 mmHg LA Dimen 2D 4.2 2.3 - 4.0 cm RVSP 38.0 mmHg RA Pressure 3.0 Findings Left Ventricle: Normal left ventricular systolic function. Normal left ventricular cavity size. Severe concentric left ventricular hypertrophy. Ejection fraction is visually estimated at 60 %. Tissue Doppler/Mitral Doppler indices are consistent with pseudonormalization with mildly elevated left atrial pressure (Stage II diastolic dysfunction). Right Ventricle: Normal right ventricular size. Normal right ventricular systolic function. Left Atrium: There is mild enlargement of left atrium. Right Atrium: The right atrium is normal in size. Mitral Valve: Mitral valve leaflets appear mildly thickened. Mild mitral annular calcification. Mild mitral valve regurgitation. Aortic Valve: Normal appearance of the aortic valve. No significant aortic stenosis or insufficiency. Tricuspid Valve: Normal appearance of the tricuspid valve. Estimated peak PA systolic pressure 38 mmHg. There is mild tricuspid regurgitation. Pulmonic Valve: Normal pulmonic valve appearance. There is mild pulmonic regurgitation. Pericardium: Trivial to small pericardial effusion. Aorta: Normal aortic root. IVC: Normal size and normal respiratory collapse consistent with normal right atrial pressure. Conclusions Normal left ventricular systolic function. Normal left ventricular cavity size. Severe concentric left ventricular hypertrophy. Ejection fraction is visually estimated at 60 %. Tissue Doppler/Mitral Doppler indices are consistent with pseudonormalization with mildly elevated left atrial pressure (Stage II diastolic dysfunction). Normal right ventricular size. Normal right ventricular systolic function. There is mild enlargement of left atrium. The right atrium is normal in size. Mild mitral valve regurgitation. No significant aortic stenosis or insufficiency. Estimated peak PA systolic pressure 38 mmHg. There is mild tricuspid regurgitation. Trivial to small pericardial effusion. Electronically Signed By: John Agrawal 31-Jan-2018 12:49:51 -0800 Patient Name: JAIMEE NASSAR Study Date: 31-Jan-2018 [id number]
--- NOTE | 2018-01-31 13:06 | RADRPT ---
Vent Rate: 65 bpm RR Interval: 0 msec AL Interval: 198 msec QRS Duration: 116 msec QT Interval: 448 msec QTC Interval: 465 msec P-R-T [place]: 68 - -68 - 95 degrees Normal sinus rhythm Left axis deviation Septal infarct , age undetermined Abnormal ECG Electronically Signed By: John Agrawal [id number]
--- NOTE | 2018-01-31 17:16 | NUR ---
RN notes patient awake in bed, aox4 able to make needs known, all due medications given, Seen and examined by Dr. Thibodeaux. pt aware with POC. stable at this time, will endorse
[2018-01-31] MEDS: ATORVASTATIN 40 MG TAB PO SCH (21:27)
[2018-01-31] MEDS: AMLODIPINE 10 MG TAB PO SCH (21:28)
[2018-01-31] MEDS: ISOSORBIDE MONONITRATE 20 MG TAB PO SCH (21:28)
[2018-02-01] VITALS (11 sets, daily range): BP systolic 135–162; BP diastolic 63–73; PULSE 48–65; RESP 18–22
--- NOTE | 2018-02-01 06:08 | CONS ---
DATE OF ADMISSION: 01/30/2018 DATE OF CONSULTATION: 01/31/2018 REFERRING PHYSICIAN: Grecia Muñoz MD REASON FOR EVALUATION: Flash pulmonary edema. HISTORY OF PRESENT ILLNESS: Mr. Minaya is an 87-year-old -[place] gentleman with history o f hypertension, dyslipidemia, history of heart failure, history of coronary artery disease, who had a stress test in 05/2016, which showed a small reversible perfusion inferior defect with ejection frac tion 56%, who comes now for evaluation of flash pulmonary edema with setting of this event. He also was noted to have a troponin at 0.166 with elevated CK-MB, now trending down. This is consistent wit h non-ST elevation myocardial infarction. The patient feels much better now. He was hemodynamically stable now. I think at this point, the patient will likely require further recertification. The co nsideration is of left heart catheterization versus stress test given his older age. I think stress test might not be an unreasonable option at this time. I understand the patient had a recent stress test, but I think another followup would be reasonable to make sure there has been no change in his c ondition. PAST MEDICAL HISTORY: 1. Hypertension. 2. Dyslipidemia. 3. History of heart failure with preserved ejection fraction, history of coronary artery disease, hi story of positive stress test in 05/2016. ALLERGIES: No known drug allergies. SOCIAL HISTORY: Does not smoke, does not drink, does not use drugs. FAMILY HISTORY: Negative for sudden cardiac or premature coronary artery disease. MEDICATIONS: 1. The patient is on amlodipine 10 mg once a day. 3. Metoprolol succinate 25 mg once a day. 3. Aspirin 81 mg a day. 4. Lovenox subcutaneous. 5. Lasix 20 mg IV b.i.d. 6. Hydralazine . 7. Losartan 50 mg p.o. b.i.d. REVIEW OF SYSTEMS: CONSTITUTIONAL: No fevers, no chills, acute episode of shortness of breath. HEENT: No changes in vision or hearing. CARDIAC: Chest pain reported now. RESPIRATORY: . GASTROINTESTINAL: No nausea, vomiting. GENITOURINARY: No change in urination. NEUROLOGIC: No focal deficits. PSYCHIATRIC: No known history of psychiatric illness. PHYSICAL EXAMINATION: VITAL SIGNS: Temperature . GENERAL: Well-nourished -[place] gentleman in no acute distress, alert and oriented x3, awar e of his condition. HEENT: Head is normocephalic. Eyes anicteric. NECK: Supple. JVD 6 cm. There is no lymphadenopathy. HEART: Regular, soft, holosystolic murmur. PMI is minimally displaced. There is no S3. LUNGS: Coarse to base. ABDOMEN: Distended, bowel sounds are present. There is no hepatosplenomegaly. JVD is intact. EXTREMITIES: No clubbing, cyanosis or edema. LABORATORY DATA: Sodium 143, potassium 4.0, BUN , creatinine 0.9. Troponin is from 0.166 to 0. 161. His CK-MB is from 7.5 to 4.6. EKG today shows sinus rhythm with nonspecific ST-T changes. ASSESSMENT AND PLAN: Non-ST elevation myocardial infarction. The patient has non-ST elevation myoca rdial infarction with stable troponins are trending down. CK-MB this consistent with acute . P atient had last test in 05/2016. I think at this point, recertification would be warranted. Conside ration of left heart catheterization with a stress test. I think stress test might not be unreasonab le given his age. Hypertension. Blood pressure modestly well controlled. Continue to follow. Conge stive heart failure, the patient has heart failure, last ejection fraction was documented at 56%. Co ntinue gentle diuresis. The patient feels much better now. Dyslipidemia. Continue to adjust medications as needed. Anemia. Hemoglobin is fairly stable at 8.0. No history of bleeding now. Continue to monitor closel y. I would like to thank Dr. Muñoz for referring this patient for my evaluation. Dictated By: SHADY MALDONADO MD ML/NTS Conf#: [id number] DID#: [id number] CC: GRECIA MUÑOZ MD;*EndCC*
[2018-02-01] MEDS: FUROSEMIDE 20 MG INJ IV SCH (07:05)
--- NOTE | 2018-02-01 07:43 | NUR ---
EOSS: Pt A&O x 4. VSS. Patient denies pain. No current s/s of distress, resting in bed comfortably. Fall precautions maintained. Hourly rounding performed. Call light within reach; instructed pt to call for assistance as needed. Pt clean and dry; all needs and concerns attended to. Patient maintained as NPO after midnight for stress test procedure today. Endorsed pt to AM RN for continuity of care.
[2018-02-01] MEDS: METOPROLOL (XL) 25 MG TAB PO SCH (08:08)
[2018-02-01] MEDS: LOSARTAN 50 MG TAB PO SCH ×2 (08:08→21:16)
[2018-02-01] MEDS: TAMSULOSIN (SR) 0.4 MG CAP PO SCH (08:08)
[2018-02-01] MEDS: ASPIRIN 81 MG TAB PO SCH (08:08)
[2018-02-01] MEDS: ENOXAPARIN 40 MG/0.4 ML SYG SC SCH (08:28)
--- NOTE | 2018-02-01 11:20 | PN ---
Date/Time of Note Date/Time of Note DATE: 02/01/18 TIME: 11:15 Assessment/Plan VTE Prophylaxis Risk score (from Ns)>0 risk: 4 SCD applied (from Ns): Yes Pharmacological prophylaxis: LMWH Lines/Catheters IV [facility]from [facility] [place] Urinary Cath still in place: No Assessment/Plan Assessment/Plan 87-year-old male with: 1. Dyspnea and dyspnea on exertion, mild CHF exacerbation on chest x-ray. Patient responding to diuresis fairly well. Continue Lasix 20 mg IV twice daily 2D echocardiogram on this admission confirming diastolic dysfunction, EF 60%, severe concentric LVH. Cardiac enzymes did trend down. Patient with no chest pains. EKG unchanged. Stress test planned today. Blood pressure much better controlled. 2. Hypertension status post hypertensive urgency overnight, medication adjusted, blood pressure better controlled this morning. Continue current beta-blockers, nitrates, hydralazine and ARB, also on Norvasc. 3. Elevated troponin, continue current medication, antiplatelet therapy. Stress test today. 4. Hyperlipidemia: Continue statin therapy 5. Peripheral vascular disease, status post bilateral carotid enterectomy. Continue statin therapy along with antiplatelets and blood pressure control. 6. BPH: Continue Flomax. Prophylaxis: Lovenox for DVT prophylaxis, patient tolerating p.o. Disposition: Stress test today, depending on results, patient may be discharged later today versus stay in the hospital for further inpatient care. If the patient is to stay in the hospital we will change him to inpatient status. Result Diagram: 02/01/18 0454 02/01/18 0454 Results 24hrs Laboratory Tests Test 02/01/18 04:54 White Blood Count 4.4 L Red Blood Count 5.12 Hemoglobin 12.4 L Hematocrit 39.3 L Mean Corpuscular Volume 76.8 L Mean Corpuscular Hemoglobin 24.2 L Mean Corpuscular Hemoglobin Concent 31.6 L Red Cell Distribution Width 17.6 H Platelet Count 152 Mean Platelet Volume Immature Granulocytes % 0.200 Neutrophils % 46.8 Lymphocytes % 38.5 Monocytes % 12.4 H Eosinophils % 1.6 Basophils % 0.5 Nucleated Red Blood Cells % 0.0 Immature Granulocytes # 0.010 Neutrophils # 2.1 Lymphocytes # 1.7 Monocytes # 0.6 Eosinophils # 0.1 Basophils # 0.0 Nucleated Red Blood Cells # 0.0 Sodium Level 141 Potassium Level 4.7 Chloride Level 101 Carbon Dioxide Level 35 H Anion Gap 5 Blood Urea Nitrogen 18 Creatinine 0.93 Est Glomerular Filtrat Rate mL/min Glucose Level 103 Calcium Level 9.1 Phosphorus Level 4.8 Magnesium Level 2.0 Subjective 24 Hr Interval Summary Free Text/Dictation Patient doing better, less orthopnea, less dyspnea on exertion. Diuresing well on Lasix. Renal function stable. Stress test ordered today. Exam/Review of Systems Vital Signs Vitals Vital Signs Date Temp Pulse Resp B/P (MAP) Pulse Ox O2 O2 Flow FiO2 Time Delivery Rate 02/01/18 53 08:04 02/01/18 Nasal 2.0 07:29 Cannula 02/01/18 97.6 162/73 96 07:26 (102) 02/01/18 18 03:18 Intake and Output 01/31/18 01/31/18 02/01/18 1414:59 22:59 06:59 IntakeIntake Total 1020 ml OutputOutput Total 200 ml 1150 ml BalanceBalance -200 ml -130 ml Exam Constitutional: alert, oriented, well developed Respiratory: clear to auscultation, normal air movement Cardiovascular: regular rate and rhythm, nl pulses Gastrointestinal: soft, non-tender Musculoskeletal: nl extremities to inspection Extremities: normal pulses, other (No edema, clubbing or cyanosis) Neurological: SHORT ORDER FRY COOK II-XII intact, nl mental status, nl speech, nl strength Medications Medications Current Medications Atorvastatin Calcium (Lipitor) 40 mg QHS PO Last administered on 01/31/18at 21:27; Admin Dose 40 MG; Start 01/30/18 at 21:00 Hydralazine HCl (Apresoline) 50 mg TID PO Last administered on 02/01/18at 08:08; Admin Dose 50 MG; Start 01/30/18 at 21:00 Acetaminophen/ Hydrocodone Bitart ([place] (5/325)) 1 tab Q6H PRN PO SEVERE PAIN LEVEL 7-10; Start 01/30/18 at 18:00 Isosorbide Mononitrate (Ismo) 20 mg QHS PO Last administered on 01/31/18at 21:28; Admin Dose 20 MG; Start 01/30/18 at 21:00 Methocarbamol (Robaxin) 750 mg Q6H PRN PO MUSCLE SPASMS; Start 01/30/18 at 18:00 Metoprolol Succinate (Toprol Xl) 25 mg DAILY PO Last administered on 02/01/18 08:08; Admin Dose 25 MG; Start 01/31/18 at 09:00 Tamsulosin HCl (Flomax) 0.4 mg DAILY PO Last administered on 02/01/18 08:08; Admin Dose 0.4 MG; Start 01/31/18 at 09:00 Losartan Potassium (Cozaar) 50 mg BID PO Last administered on 02/01/18 08:08; Admin Dose 50 MG; Start 01/30/18 at 21:00 Hydralazine HCl (Apresoline) 10 mg Q8H PRN IV for SBP>160 Last administered on 01/30/18 18:32; Admin Dose 10 MG; Start 01/30/18 at 18:00 IV Flush (NS 3 ml) 3 ml PER PROTOCOL IV ; Start 01/30/18 at 18:00 Ondansetron HCl (Zofran Inj) 4 mg Q6H PRN IV NAUSEA AND/OR VOMITING; Start 01/30/18 at 18:00 Aspirin (Aspirin) 81 mg DAILY PO Last administered on 02/01/18at 08:08; Admin Dose 81 MG; Start 01/31/18 at 09:00 Nitroglycerin (Nitroglycerin (Sl Tab) 0.4 Mg) 1 tab Q5M PRN SL CHEST PAIN; Start 01/30/18 at 18:00 Acetaminophen (Tylenol Tab) 650 mg Q6H PRN PO PAIN LEVEL 1-3 OR FEVER; Start 01/30/18 at 18:00 Docusate Sodium (Colace) 100 mg Q12H PRN PO CONSTIPATION; Start 01/30/18 at 18:00 Magnesium Hydroxide (Milk Of Mag) 30 ml DAILY PRN PO CONSTIPATION; Start 01/30/18 at 18:00 Bisacodyl (Dulcolax Supp) 10 mg DAILY PRN DC CONSTIPATION; Start 01/30/18 at 18:00 Enoxaparin Sodium (Lovenox) 40 mg DAILY SC Last administered on 02/01/18 08:28; Admin Dose 40 MG; Start 01/31/18 at 09:00 Furosemide (Lasix) 20 mg BID DIURETICS IV Last administered on 02/01/18at 07:05; Admin Dose 20 MG; Start 12/26/18 at 06:00 Amlodipine Besylate (Norvasc) 10 mg QHS PO Last administered on 01/31/18at 21:28; Admin Dose 10 MG; Start 01/31/18 at 21:00 Imaging Imaging Echocardiogram Report Patient Name: JAIMEE NASSAR Gender: Male Date: 1930 Study Date: 31-Jan-2018 Toby Maker: Yudelka Chowdhury RDCS Location: 602 Ref. Physician: LAUREN MUÑOZ Quality: Good Procedures: Transthoracic echocardiogram with complete 2D, M-Mode, and doppler examination. Indications: Congestive Heart Failure. 2D/M Mode Doppler Measurement Value Normal Ranges Measurement Value Normal Ranges LVIDd 2D 4.4 3.5 - 5.6 cm AV Peak Raudel 1.5 m/sec LVIDs 2D 2.9 2.1 - 4.1 cm AV Peak PG 9.0 mmHg LVPWd 2D 2.1 0.6 - 1.1 cm LVOT Peak Raudel 0.9 m/sec IVSd 2D 2.2 0.6 - 1.1 cm LVOT Peak PG 3.0 mmHg AoR Diam 2D 3.2 2.0 - 3.7 cm TR Peak Raudel 3.0 m/sec LA/Ao 2D 1 0 - 1 TR Peak PG 35.0 mmHg LA Dimen 2D 4.2 2.3 - 4.0 cm RVSP 38.0 mmHg RA Pressure 3.0 Findings Left Ventricle: Normal left ventricular systolic function. Normal left ventricular cavity size. Severe concentric left ventricular hypertrophy. Ejection fraction is visually estimated at 60 %. Tissue Doppler/Mitral Doppler indices are consistent with pseudonormalization with mildly elevated left atrial pressure (Stage II diastolic dysfunction). Right Ventricle: Normal right ventricular size. Normal right ventricular systolic function. Left Atrium: There is mild enlargement of left atrium. Right Atrium: The right atrium is normal in size. Mitral Valve: Mitral valve leaflets appear mildly thickened. Mild mitral annular calcification. Mild mitral valve regurgitation. Aortic Valve: Normal appearance of the aortic valve. No significant aortic stenosis or insufficiency. Tricuspid Valve: Normal appearance of the tricuspid valve. Estimated peak PA systolic pressure 38 mmHg. There is mild tricuspid regurgitation. Pulmonic Valve: Normal pulmonic valve appearance. There is mild pulmonic regurgitation. Pericardium: Trivial to small pericardial effusion. Aorta: Normal aortic root. IVC: Normal size and normal respiratory collapse consistent with normal right atrial pressure. Conclusions Normal left ventricular systolic function. Normal left ventricular cavity size. Severe concentric left ventricular hypertrophy. Ejection fraction is visually estimated at 60 %. Tissue Doppler/Mitral Doppler indices are consistent with pseudonormalization with mildly elevated left atrial pressure (Stage II diastolic dysfunction). Normal right ventricular size. Normal right ventricular systolic function. There is mild enlargement of left atrium. The right atrium is normal in size. Mild mitral valve regurgitation. No significant aortic stenosis or insufficiency. Estimated peak PA systolic pressure 38 mmHg. There is mild tricuspid regurgitation. Trivial to small pericardial effusion. Electronically Signed By: John Agrawal 31-Jan-2018 12:49:51 -0800 PROCEDURE: XR Chest. CLINICAL INDICATION: Shortness of breath. TECHNIQUE: 2 views. Frontal and lateral. COMPARISON: January 30, 2018. FINDINGS: There is mild interstitial disease in the lower lung zones consistent with pulmonary edema, improved. The lungs are otherwise clear. The heart is enlarged. There is calcification in the aorta consistent with atherosclerosis. There is no pleural effusion. There is no pneumothorax. IMPRESSION: 1. Cardiomegaly and atherosclerosis. 2. Improved pulmonary edema. 3. Otherwise unremarkable chest radiograph. RPTAT: QQ .Miguel Ángel Chapman MD, MD Date Time Electronically viewed and signed by .Miguel Ángel Chapman MD, on 01/31/2018 15:52 SHERRIE MUÑOZ Feb 01, 2018 11:20
[2018-02-01] MEDS ORDERED: REGADENOSON 0.4 MG/5 ML SYG ONE (11:41)
--- NOTE | 2018-02-01 12:12 | CONS ---
Date/Time of Note Date/Time of Note DATE: 02/01/18 TIME: 12:07 Assessment/Plan Assessment/Plan Hospital Course IMP: 1.Nstemi 2.HTN 3.CHF-diastolic acute on chronic 4. HL REcc: -Tele -serial ecg's -Continue norvasc -Contineu asa/statn -Continue hydralazine with increase to improve BP control -Continue BB as tolerated only -Contineu oral nitrates -Lexiscan stress test today Result Diagram: 02/01/18 0454 02/01/18 0454 Results 24hrs Laboratory Tests Test 02/01/18 04:54 02/01/18 09:40 White Blood Count 4.4 L Red Blood Count 5.12 Hemoglobin 12.4 L Hematocrit 39.3 L Mean Corpuscular Volume 76.8 L Mean Corpuscular Hemoglobin 24.2 L Mean Corpuscular Hemoglobin Concent 31.6 L Red Cell Distribution Width 17.6 H Platelet Count 152 Mean Platelet Volume Immature Granulocytes % 0.200 Neutrophils % 46.8 Lymphocytes % 38.5 Monocytes % 12.4 H Eosinophils % 1.6 Basophils % 0.5 Nucleated Red Blood Cells % 0.0 Immature Granulocytes # 0.010 Neutrophils # 2.1 Lymphocytes # 1.7 Monocytes # 0.6 Eosinophils # 0.1 Basophils # 0.0 Nucleated Red Blood Cells # 0.0 Sodium Level 141 Potassium Level 4.7 Chloride Level 101 Carbon Dioxide Level 35 H Anion Gap 5 Blood Urea Nitrogen 18 Creatinine 0.93 Est Glomerular Filtrat Rate mL/min Glucose Level 103 Calcium Level 9.1 Phosphorus Level 4.8 Magnesium Level 2.0 Creatine Kinase 223 H Creatine Kinase Index 1.9 Creatinine Kinase MB (Mass) 4.34 H Troponin I 0.104 Consultation Date/Type/Reason Admit Date/Time Jan 30, 2018 at 16:16 Initial Consult Date 01/31/18 Type of Consult cardiology Reason for Consultation positive troponin Requesting Provider: SHERRIE MUÑOZ Exam/Review of Systems Vital Signs Vitals Vital Signs Date Temp Pulse Resp B/P (MAP) Pulse Ox O2 O2 Flow FiO2 Time Delivery Rate 02/01/18 53 08:04 02/01/18 Nasal 2.0 07:29 Cannula 02/01/18 97.6 162/73 96 07:26 (102) 02/01/18 18 03:18 Intake and Output 01/31/18 01/31/18 02/01/18 1515:00 23:00 07:00 IntakeIntake Total 1020 ml OutputOutput Total 200 ml 1150 ml BalanceBalance -200 ml -130 ml Exam Review of Systems: CONSTITUTIONAL: No fevers, chills. PULMONARY: No sob CARDIOVASCULAR: No chest pain/palpitations GASTROINTESTINAL: No nausea/vomiting. GENITOURINARY: No hematuria/dysuria. MUSCULOSKELETAL: No myagias/arthalgias. PSYCHIATRIC: The patient denies depression. NEUROLOGIC: No weakness Constitutional: alert, oriented Psych: no complaints Head: normocephalic ENMT: mucosa pink and moist Neck: supple, jvd (9 cm water) Respiratory: clear to auscultation Cardiovascular: regular rate and rhythm Gastrointestinal: soft, non-tender Musculoskeletal: muscle tone (normal) Extremities: edema (none) Neurological: other (No focal dficits) Medications Medications Current Medications Atorvastatin Calcium (Lipitor) 40 mg QHS PO Last administered on 01/31/18at 21:27; Admin Dose 40 MG; Start 01/30/18 at 21:00 Hydralazine HCl (Apresoline) 50 mg TID PO Last administered on 02/01/18at 08:08; Admin Dose 50 MG; Start 01/30/18 at 21:00 Acetaminophen/ Hydrocodone Bitart ([place] (5/325)) 1 tab Q6H PRN PO SEVERE PAIN LEVEL 7-10; Start 01/30/18 at 18:00 Isosorbide Mononitrate (Ismo) 20 mg QHS PO Last administered on 01/31/18at 21:28; Admin Dose 20 MG; Start 01/30/18 at 21:00 Methocarbamol (Robaxin) 750 mg Q6H PRN PO MUSCLE SPASMS; Start 01/30/18 at 18:00 Metoprolol Succinate (Toprol Xl) 25 mg DAILY PO Last administered on 02/01/18at 08:08; Admin Dose 25 MG; Start 01/31/18 at 09:00 Tamsulosin HCl (Flomax) 0.4 mg DAILY PO Last administered on 02/01/18 08:08; Admin Dose 0.4 MG; Start 01/31/18 at 09:00 Losartan Potassium (Cozaar) 50 mg BID PO Last administered on 02/01/18at 08:08; Admin Dose 50 MG; Start 01/30/18 at 21:00 Hydralazine HCl (Apresoline) 10 mg Q8H PRN IV for SBP>160 Last administered on 01/30/18at 18:32; Admin Dose 10 MG; Start 01/30/18 at 18:00 IV Flush (NS 3 ml) 3 ml PER PROTOCOL IV ; Start 01/30/18 at 18:00 Ondansetron HCl (Zofran Inj) 4 mg Q6H PRN IV NAUSEA AND/OR VOMITING; Start 01/30/18 at 18:00 Aspirin (Aspirin) 81 mg DAILY PO Last administered on 02/01/18 08:08; Admin Dose 81 MG; Start 01/31/18 at 09:00 Nitroglycerin (Nitroglycerin (Sl Tab) 0.4 Mg) 1 tab Q5M PRN SL CHEST PAIN; Start 01/30/18 at 18:00 Acetaminophen (Tylenol Tab) 650 mg Q6H PRN PO PAIN LEVEL 1-3 OR FEVER; Start 01/30/18 at 18:00 Docusate Sodium (Colace) 100 mg Q12H PRN PO CONSTIPATION; Start 01/30/18 at 18:00 Magnesium Hydroxide (Milk Of Mag) 30 ml DAILY PRN PO CONSTIPATION; Start 01/30/18 at 18:00 Bisacodyl (Dulcolax Supp) 10 mg DAILY PRN [place] CONSTIPATION; Start 01/30/18 at 18:00 Enoxaparin Sodium (Lovenox) 40 mg DAILY SC Last administered on 02/01/18at 08:28; Admin Dose 40 MG; Start 01/31/18 at 09:00 Amlodipine Besylate (Norvasc) 10 mg QHS PO Last administered on 01/31/18at 21:28; Admin Dose 10 MG; Start 01/31/18 at 21:00 Furosemide (Lasix) 20 mg BID DIURETICS PO ; Start 02/01/18 at 18:00 KARUNA MURRAY Feb 01, 2018 12:12
--- NOTE | 2018-02-01 12:55 | CARRPT ---
DATE OF PROCEDURE: 02/01/2018 REASON FOR STRESS TESTING: Positive troponin, assess significance. BASELINE VITAL SIGNS AND ELECTROCARDIOGRAM: Pulse 62, blood pressure is 175/79. Electrocardiogram n ormal sinus rhythm at a rate of 62 with a left axis deviation, borderline IVCD, nonspecific ST-T wave abnormalities. PROCEDURE: The patient underwent standard Lexiscan infusion over 10 seconds followed by radiotracer. The patient's test was stopped at completion of protocol. Maximal achieved blood pressure during t he test, 154/67. Maximum heart rate during the test 78. ELECTROCARDIOGRAM FINDINGS: The patient did not develop any new Lexiscan-induced ST or T-wave change d. No significant documented PVCs. SYMPTOMS: The patient had slight complaints of shortness of breath during stress testing which resol jose antonio in recovery. No chest pain. IMPRESSION: 1. No Lexiscan-induced ST or T-wave changes from baseline abnormalities or diagnostic cardiac ischem ia. 2. No complaints of chest pain during stress testing. Positive shortness of breath resolved in familia very. 3. No documented premature ventricular contractions during stress testing. 4. Report of nuclear images to follow in separate dictation. Dictated By: KARUNA CRESPO/EMELINA Conf#: [id number] DID#: [id number] CC: SHERRIE MUÑOZ MD;*End*
--- NOTE | 2018-02-01 17:23 | NUR ---
RN notes patient awake in bed, aox4 able to make needs known, all due medications given, all needs attended. stress test was done today, MD ordered to obtain consent for heart cath for 02/02/18. per pt he still has questions regarding the procedure, thus, consent wasn't obtained. pt stable at this time, will endorse
[2018-02-01] MEDS: FUROSEMIDE 20 MG TAB PO SCH (17:41)
[2018-02-01] MEDS: ISOSORBIDE MONONITRATE 20 MG TAB PO SCH (21:16)
[2018-02-01] MEDS: ATORVASTATIN 40 MG TAB PO SCH (21:16)
[2018-02-01] MEDS: AMLODIPINE 10 MG TAB PO SCH (21:17)
--- NOTE | 2018-02-01 22:13 | NUR ---
Pt states that he is aware that he is having a heart cath, and states that he has had this procedure done twice in the past; however he would like to see if he could have this procedure done later, because he wants to spend time with his family, and check his mail. Pt states that he is upset that he came into hospital on [place], and would like to go home tomorrow; also states that he would like to speak with Dr. San about this in the morning. Pt has no complaints at this time. No s/s of distress noted. Will continue to monitor.
[2018-02-02] VITALS (15 sets, daily range): BP systolic 105–165; BP diastolic 50–74; PULSE 55–72; RESP 14–26
--- NOTE | 2018-02-02 04:50 | NUR ---
Pt is now stating that he is upset that Dr. San did not tell him about the heart cath, and that he wants to leave AMA later in the morning. Pt states that if he had been aware of the heart cath, he would have agreed to have it done after New Years, because his family from the [facility] is here visiting for the holidays. Informed pt that it may not be safe for him to leave AMA, and that RN will notify cloth checker of pt concerns. Called Dr. San office, and left message with answering service informing of pt having 7 beats of Vtach, refusing heart cath, and wanting to leave AMA later in the morning. Pt has a calm mood, and manner. Pt seems to simply want to go home to spend time with his family.
[2018-02-02] MEDS: FUROSEMIDE 20 MG TAB PO SCH ×2 (06:49→18:33)
--- NOTE | 2018-02-02 06:50 | NUR ---
Pt is now stating that he is considering possibly having his heart cath if he does not have to stay in the hospital long afterwards. He is also stating that he would like to speak with Dr. San before he makes up his mind. Encouraged pt to stay here in the hospital, to receive medical treatment.
[2018-02-02] MEDS ORDERED: DIPHENHYDRAMINE 50 MG CAP PO ONE (07:00)
[2018-02-02] MEDS ORDERED: DIAZEPAM 5 MG TAB PO ONE (07:00)
--- NOTE | 2018-02-02 07:53 | NUR ---
EOSS: Pt in room resting comfortably. Pt has no complaints at this time. Bedside shift report given to MO Hancock.
[2018-02-02] MEDS: ASPIRIN 81 MG TAB PO SCH (08:48)
[2018-02-02] MEDS: TAMSULOSIN (SR) 0.4 MG CAP PO SCH (08:48)
[2018-02-02] MEDS: LOSARTAN 50 MG TAB PO SCH ×2 (08:49→21:48)
[2018-02-02] MEDS: METOPROLOL (XL) 25 MG TAB PO SCH (08:49)
--- NOTE | 2018-02-02 09:17 | NUR ---
Patient was picked up by dental laboratory assistant. Notified RN from dental laboratory assistant that patient wants to talk to the doctor before doing the procedure. Per RN, the patient can speak with the doctor in the lab. Dr. San will be available there
[2018-02-02] MEDS ORDERED: LIDOCAINE 1% (MDV) 20 ML INJ ONE (09:28)
[2018-02-02] MEDS ORDERED: HEPARIN 1000 UNITS/ML 10 ML INJ ONE (09:28)
[2018-02-02] MEDS ORDERED: IODIXANOL LOCM 100 ML BTL ONE (09:28)
[2018-02-02] MEDS ORDERED: SOD CHLORIDE 0.9% 500 ML ONE (09:28)
[2018-02-02] MEDS ORDERED: NITROGLYCERIN (IC) 100 MCG/ML INJ ONE (09:29)
[2018-02-02] MEDS ORDERED: FENTAnyl 50 MCG/ML VIAL ONE (09:29)
[2018-02-02] MEDS ORDERED: VERAPAMIL 5 MG INJ ONE (09:29)
[2018-02-02] MEDS ORDERED: MIDAZOLAM 1 MG/ML 2 ML INJ ONE (09:29)
--- NOTE | 2018-02-02 09:53 | CONS ---
Date/Time of Note Date/Time of Note DATE: 02/02/18 TIME: 09:51 Assessment/Plan Assessment/Plan Hospital Course IMP: 1.Nstemi-lexiscan with reversible inferior defect. Thus given ongoing CP/positive troponin will progress to cardiac cath 2.HTN 3.CHF-diastolic acute on chronic 4. HL REcc: -Tele -serial ecg's -Continue norvasc -Contineu asa/statn -Continue hydralazine/BB -Contineu oral nitrates -LHC with possible PTCA/stent today Result Diagram: 02/02/18 0512 02/02/18 0512 Results 24hrs Laboratory Tests Test 02/02/18 05:12 White Blood Count 4.2 L Red Blood Count 4.94 Hemoglobin 12.0 L Hematocrit 37.6 L Mean Corpuscular Volume 76.1 L Mean Corpuscular Hemoglobin 24.3 L Mean Corpuscular Hemoglobin Concent 31.9 L Red Cell Distribution Width 17.2 H Platelet Count 154 Mean Platelet Volume Immature Granulocytes % 0.200 Neutrophils % 50.4 Lymphocytes % 35.7 Monocytes % 11.3 H Eosinophils % 1.7 Basophils % 0.7 Nucleated Red Blood Cells % 0.0 Immature Granulocytes # 0.010 Neutrophils # 2.1 Lymphocytes # 1.5 Monocytes # 0.5 Eosinophils # 0.1 Basophils # 0.0 Nucleated Red Blood Cells # 0.0 Sodium Level 139 Potassium Level 3.7 Chloride Level 101 Carbon Dioxide Level 32 H Anion Gap 6 Blood Urea Nitrogen 17 Creatinine 0.78 Est Glomerular Filtrat Rate mL/min Glucose Level 98 Calcium Level 8.7 Consultation Date/Type/Reason Admit Date/Time Feb 01, 2018 at 13:54 Initial Consult Date 01/31/18 Type of Consult cardiology Requesting Provider: SHERRIE MUÑOZ Exam/Review of Systems Vital Signs Vitals Vital Signs Date Temp Pulse Resp B/P (MAP) Pulse Ox O2 O2 Flow FiO2 Time Delivery Rate 02/02/18 59 08:00 02/02/18 98.0 20 144/65 100 Nasal 07:25 (91) Cannula 02/01/18 2.0 19:48 Intake and Output 02/01/18 02/01/18 02/02/18 1515:00 23:00 07:00 IntakeIntake Total 400 ml 360 ml 450 ml OutputOutput Total 450 ml 400 ml BalanceBalance -50 ml 360 ml 50 ml Exam Review of Systems: CONSTITUTIONAL: No fevers, chills. PULMONARY: No sob CARDIOVASCULAR: intermittent chest pain GASTROINTESTINAL: No nausea/vomiting. GENITOURINARY: No hematuria/dysuria. MUSCULOSKELETAL: No myagias/arthalgias. PSYCHIATRIC: The patient denies depression. NEUROLOGIC: No weakness Constitutional: alert Psych: no complaints Head: normocephalic ENMT: mucosa pink and moist Neck: supple, jvd (9 cm water) Respiratory: clear to auscultation Cardiovascular: regular rate and rhythm Gastrointestinal: soft, non-tender Musculoskeletal: muscle tone (normal) Extremities: edema (none) Neurological: other (No focal deficits) Medications Medications Current Medications Atorvastatin Calcium (Lipitor) 40 mg QHS PO Last administered on 02/01/18 21:16; Admin Dose 40 MG; Start 01/30/18 at 21:00 Acetaminophen/ Hydrocodone Bitart ([place] (5/325)) 1 tab Q6H PRN PO SEVERE PAIN LEVEL 7-10; Start 01/30/18 at 18:00 Isosorbide Mononitrate (Ismo) 20 mg QHS PO Last administered on 02/01/18 21:16; Admin Dose 20 MG; Start 01/30/18 at 21:00 Methocarbamol (Robaxin) 750 mg Q6H PRN PO MUSCLE SPASMS; Start 01/30/18 at 18:00 Metoprolol Succinate (Toprol Xl) 25 mg DAILY PO Last administered on 02/02/18 08:49; Admin Dose 25 MG; Start 01/31/18 at 09:00 Tamsulosin HCl (Flomax) 0.4 mg DAILY PO Last administered on 02/02/18at 08:48; Admin Dose 0.4 MG; Start 01/31/18 at 09:00 Losartan Potassium (Cozaar) 50 mg BID PO Last administered on 02/02/18 08:49; Admin Dose 50 MG; Start 01/30/18 at 21:00 Hydralazine HCl (Apresoline) 10 mg Q8H PRN IV for SBP>160 Last administered on 01/30/18 18:32; Admin Dose 10 MG; Start 01/30/18 at 18:00 IV Flush (NS 3 ml) 3 ml PER PROTOCOL IV ; Start 01/30/18 at 18:00 Ondansetron HCl (Zofran Inj) 4 mg Q6H PRN IV NAUSEA AND/OR VOMITING; Start 01/30/18 at 18:00 Aspirin (Aspirin) 81 mg DAILY PO Last administered on 02/02/18at 08:48; Admin Dose 81 MG; Start 01/31/18 at 09:00 Nitroglycerin (Nitroglycerin (Sl Tab) 0.4 Mg) 1 tab Q5M PRN SL CHEST PAIN; Start 01/30/18 at 18:00 Acetaminophen (Tylenol Tab) 650 mg Q6H PRN PO PAIN LEVEL 1-3 OR FEVER; Start 01/30/18 at 18:00 Docusate Sodium (Colace) 100 mg Q12H PRN PO CONSTIPATION; Start 01/30/18 at 18:00 Magnesium Hydroxide (Milk Of Mag) 30 ml DAILY PRN PO CONSTIPATION; Start 01/30/18 at 18:00 Bisacodyl (Dulcolax Supp) 10 mg DAILY PRN [place] CONSTIPATION; Start 01/30/18 at 18:00 Amlodipine Besylate (Norvasc) 10 mg QHS PO Last administered on 02/01/18at 21:17; Admin Dose 10 MG; Start 01/31/18 at 21:00 Furosemide (Lasix) 20 mg BID DIURETICS PO Last administered on 02/02/18at 06:49; Admin Dose 20 MG; Start 02/01/18 at 18:00 Hydralazine HCl (Apresoline) 75 mg TID PO Last administered on 02/02/18 08:49; Admin Dose 75 MG; Start 02/01/18 at 13:00 KARUNA MURRAY Feb 02, 2018 09:53
[2018-02-02] MEDS ORDERED: IODIXANOL LOCM 50 ML BTL ONE (10:29)
[2018-02-02] MEDS ORDERED: DOPamine-D5W 1.6 MG/ML 250 ML ONE (10:34)
[2018-02-02] MEDS ORDERED: TICAGRELOR 90 MG TABLET ONE (11:26)
[2018-02-02] MEDS ORDERED: ASPIRIN 325 MG TAB ONE (11:27)
[2018-02-02] MEDS ORDERED: morphine 2 MG INJ IV PRN (11:30)
[2018-02-02] MEDS ORDERED: OXYCODONE/ACETAMINOPHEN (5/325) TAB PO PRN (11:30)
[2018-02-02] MEDS ORDERED: ACETAMINOPHEN 325 MG TAB PO PRN (11:30)
[2018-02-02] MEDS ORDERED: ZOLPIDEM 5 MG TAB PO PRN (11:30)
[2018-02-02] MEDS ORDERED: SOD CHLORIDE 0.9% 1,000 ML IV SCH (11:30)
[2018-02-02] MEDS ORDERED: AL HYDROX/MG HYDROX/SIMETH 30 ML CUP PO PRN (11:30)
[2018-02-02] MEDS ORDERED: ONDANSETRON 4 MG INJ IV PRN (11:30)
--- NOTE | 2018-02-02 11:35 | SIPON ---
Date/Time of Note Date/Time of Note DATE: 02/02/18 TIME: 11:32 Operative Report Preoperative Diagnosis 1.nstemi Postoperative Diagnosis 1.obstructive cad s/p stent x 1 to mid RCA and PTCA x 2 to PDA Operation/Procedure Performed 1.LHC 2.PTCA/stent x 1 to mid RCA 3.PTCA to PDA x 2 Surgeon see signature line case assistant 1.Brad Anesthesia: moderate sedation Estimated blood loss: minimal Transfusion Required none Specimen none Grafts/Implants none Complications none KARUNA MURRAY Feb 02, 2018 11:34
--- NOTE | 2018-02-02 12:06 | RADRPT ---
Vent Rate: 57 bpm RR Interval: 0 msec WA Interval: 200 msec QRS Duration: 120 msec QT Interval: 466 msec QTC Interval: 453 msec P-R-T [place]: 62 - -36 - 102 degrees Sinus bradycardia Possible Left atrial enlargement Left axis deviation Anteroseptal infarct , age undetermined T wave abnormality, consider lateral ischemia Abnormal ECG Electronically Signed By: John Agrawal [id number]
--- NOTE | 2018-02-02 12:13 | PN ---
Date/Time of Note Date/Time of Note DATE: 02/02/18 TIME: 11:29 Assessment/Plan VTE Prophylaxis Risk score (from Ns)>0 risk: 5 SCD applied (from Ns): Yes Pharmacological prophylaxis: LMWH Lines/Catheters IV Catheter Type (from Rust): Saline Lock Urinary Cath still in place: No Assessment/Plan Assessment/Plan 87-year-old male with: 1. Dyspnea and dyspnea on exertion, mild CHF exacerbation on chest x-ray. Patient responding to diuresis fairly well. Continue Lasix 20 mg, may need to switch back to IV dosing. Patient has been on p.o. as of this morning. Follow-up chest x-ray in a.m. 2D echocardiogram on this admission confirming diastolic dysfunction, EF 60%, severe concentric LVH. s/p positive stress test, had angio this AM, s/p stenting of RCA VSS post procedure after episode of Bradycardia Admitting to ICU, close monitoring. 2. Hypertension status post hypertensive urgency overnight, medication adjusted, blood pressure better controlled this morning. Continue current beta-blockers, nitrates, hydralazine and ARB, also on Norvasc. 3. Elevated troponin, continue current medication, antiplatelet therapy. Status post RCA stenting, continue current medications 4. Hyperlipidemia: Continue statin therapy 5. Peripheral vascular disease, status post bilateral carotid enterectomy. Continue statin therapy along with antiplatelets and blood pressure control. 6. BPH: Continue Flomax. Prophylaxis: Lovenox for DVT prophylaxis, patient tolerating p.o. Disposition: Status post angiogram with RCA stenting. Monitor in ICU overnight. Further disposition in the next 24 hours. Result Diagram: 02/02/1812 02/02/18 0512 Results 24hrs Laboratory Tests Test 02/02/18 05:12 White Blood Count 4.2 L Red Blood Count 4.94 Hemoglobin 12.0 L Hematocrit 37.6 L Mean Corpuscular Volume 76.1 L Mean Corpuscular Hemoglobin 24.3 L Mean Corpuscular Hemoglobin Concent 31.9 L Red Cell Distribution Width 17.2 H Platelet Count 154 Mean Platelet Volume Immature Granulocytes % 0.200 Neutrophils % 50.4 Lymphocytes % 35.7 Monocytes % 11.3 H Eosinophils % 1.7 Basophils % 0.7 Nucleated Red Blood Cells % 0.0 Immature Granulocytes # 0.010 Neutrophils # 2.1 Lymphocytes # 1.5 Monocytes # 0.5 Eosinophils # 0.1 Basophils # 0.0 Nucleated Red Blood Cells # 0.0 Sodium Level 139 Potassium Level 3.7 Chloride Level 101 Carbon Dioxide Level 32 H Anion Gap 6 Blood Urea Nitrogen 17 Creatinine 0.78 Est Glomerular Filtrat Rate mL/min Glucose Level 98 Calcium Level 8.7 Subjective 24 Hr Interval Summary Free Text/Dictation Patient went to [facility] for angiogram this morning, he had an episode of bradycardia during the procedure, CODE BLUE was called, did not need intubation, procedure was continued and patient was stented mid RCA with resolution of hemodynamic instability. Now hemodynamically stable and being admitted to the intensive care unit postprocedure for close monitoring. Exam/Review of Systems Vital Signs Vitals Vital Signs Date Temp Pulse Resp B/P (MAP) Pulse Ox O2 O2 Flow FiO2 Time Delivery Rate 02/02/18 59 08:00 02/02/18 Nasal 2.0 08:00 Cannula 02/02/18 98.0 20 144/65 100 07:25 (91) Intake and Output 02/01/18 02/01/18 02/02/18 1515:00 23:00 07:00 IntakeIntake Total 400 ml 360 ml 450 ml OutputOutput Total 450 ml 400 ml BalanceBalance -50 ml 360 ml 50 ml Exam Constitutional: alert, oriented, well developed Respiratory: clear to auscultation, normal air movement Cardiovascular: regular rate and rhythm, nl pulses Gastrointestinal: soft, non-tender Musculoskeletal: nl extremities to inspection Extremities: normal pulses, other (no edema, clubbing or cyanosis ) Neurological: OIL AND GAS LEASE PUMPER II-XII intact, nl mental status, nl speech, nl strength (At baseline), other Medications Medications Current Medications Atorvastatin Calcium (Lipitor) 40 mg QHS PO Last administered on 02/01/18at 21:16; Admin Dose 40 MG; Start 01/30/18 at 21:00 Acetaminophen/ Hydrocodone Bitart ([place] (5/325)) 1 tab Q6H PRN PO SEVERE PAIN LEVEL 7-10; Start 01/30/18 at 18:00 Isosorbide Mononitrate (Ismo) 20 mg QHS PO Last administered on 02/01/18at 21:16; Admin Dose 20 MG; Start 01/30/18 at 21:00 Methocarbamol (Robaxin) 750 mg Q6H PRN PO MUSCLE SPASMS; Start 01/30/18 at 18:00 Metoprolol Succinate (Toprol Xl) 25 mg DAILY PO Last administered on 02/02/18 08:49; Admin Dose 25 MG; Start 01/31/18 at 09:00 Tamsulosin HCl (Flomax) 0.4 mg DAILY PO Last administered on 02/02/18 08:48; Admin Dose 0.4 MG; Start 01/31/18 at 09:00 Losartan Potassium (Cozaar) 50 mg BID PO Last administered on 02/02/18 08:49; Admin Dose 50 MG; Start 01/30/18 at 21:00 Hydralazine HCl (Apresoline) 10 mg Q8H PRN IV for SBP>160 Last administered on 01/30/18 18:32; Admin Dose 10 MG; Start 01/30/18 at 18:00 IV Flush (NS 3 ml) 3 ml PER PROTOCOL IV ; Start 01/30/18 at 18:00 Ondansetron HCl (Zofran Inj) 4 mg Q6H PRN IV NAUSEA AND/OR VOMITING; Start 01/30/18 at 18:00 Aspirin (Aspirin) 81 mg DAILY PO Last administered on 02/02/18 08:48; Admin Dose 81 MG; Start 01/31/18 at 09:00 Nitroglycerin (Nitroglycerin (Sl Tab) 0.4 Mg) 1 tab Q5M PRN SL CHEST PAIN; Start 01/30/18 at 18:00 Acetaminophen (Tylenol Tab) 650 mg Q6H PRN PO PAIN LEVEL 1-3 OR FEVER; Start 01/30/18 at 18:00 Docusate Sodium (Colace) 100 mg Q12H PRN PO CONSTIPATION; Start 01/30/18 at 18:00 Magnesium Hydroxide (Milk Of Mag) 30 ml DAILY PRN PO CONSTIPATION; Start 01/30/18 at 18:00 Bisacodyl (Dulcolax Supp) 10 mg DAILY PRN [place] CONSTIPATION; Start 01/30/18 at 18:00 Amlodipine Besylate (Norvasc) 10 mg QHS PO Last administered on 02/01/18 21:17; Admin Dose 10 MG; Start 01/31/18 at 21:00 Furosemide (Lasix) 20 mg BID DIURETICS PO Last administered on 02/02/18 06:49; Admin Dose 20 MG; Start 02/01/18 at 18:00 Hydralazine HCl (Apresoline) 75 mg TID PO Last administered on 02/02/18at 08:49; Admin Dose 75 MG; Start 02/01/18 at 13:00 Imaging Imaging PROCEDURE: XR Chest. CLINICAL INDICATION: Preop TECHNIQUE: An AP view of the chest was obtained. COMPARISON: CHEST 01/31/2018; CHEST 01/30/2018; CHEST 07/07/2016; CHEST 05/16/2016; CR PORTABLE CHEST 10/25/2006 FINDINGS: There is prominence of the interstitial and central pulmonary vascular markings with small bilateral pleural effusions. No focal airspace opacification or pneumothorax is seen. The cardiomediastinal silhouette is moderately enlarged. Calcifications are seen within the aortic arch. The osseous structures demonstrate senescent changes. IMPRESSION: 1. Findings suggestive of pulmonary vascular congestion with small bilateral pleural effusions. Lung aeration is mildly improved when compared to the prior examination. 2. Moderate cardiomegaly and aortic atherosclerosis. RPTAT: HH .Li Lutz MD, MD Date Time Electronically viewed and signed by .Li Lutz MD, MD on 02/02/2018 08:16 SHERRIE MUÑOZ Feb 02, 2018 11:44
--- NOTE | 2018-02-02 17:18 | NUR ---
EOSS PT REMAINS STABLE. A/OX4. DENIES CHEST PAIN OR SOB. RIGHT RADIAL TR BAND REMOVED WITHOUT DIFFICULTY. SITE CLEAN DRY AND INTACT. NO HEMATOMA. INSTRUCTED PT TO NOT PUT PRESSURE ON RIGHT WRIST. VITALS STABLE. CONT WITH PLAN OF CARE.
--- NOTE | 2018-02-02 18:17 | CARRPT ---
DATE OF PROCEDURE: 02/02/2018 TYPES OF PROCEDURES: 1. Left heart catheterization. 2. Coronary angiography. 3. Percutaneous transluminal coronary angioplasty with placement of Synergy drug-eluting stent x1 to mid right coronary artery, 2.5 x 12 mm. 4. Percutaneous transluminal coronary angioplasty x2 to PDA. 5. Measurement of left ventricular end diastolic pressure. 6. Moderate conscious sedation. ATTENDING PHYSICIAN: Karuna San MD REFERRING PHYSICIAN: Grecia Thibodeaux MD INDICATION: Chest pain with a positive troponin consistent with NSTEMI and positive ischemia by Nikki scan. TYPE OF ANESTHESIA: Conscious and local. BRIEF HISTORY: Mr. Minaya is an 87-year-old male with diabetes mellitus type 2, dyslipidemia, who initially complains of substernal chest pain and ruled in for [id number] for myocardial infarct ion. The patient underwent a cardiac stress test revealing positive ischemia in anterior distributio n. Given these findings, the patient was referred for and presents today in order to the left heart catheterization to assess for the possibility of significant obstructive coronary artery disease lend ing to symptoms of chest pain and non-ST myocardial infarction and positive stress test. PROCEDURE IN DETAILS: After informed consent was obtained, the patient was brought to the [facility] cardiac catheterization lab where his right radial area was prepped and draped in the sterile fashion. A 2% lidocaine was infiltrated to the right radial area in order to achieve aurelia quate anesthesia. Using modified Seldinger technique, the radial artery was cannulated and a 6-Frenc h arterial sheath was placed. A 6-Ukrainian JL3.5 catheter was used to cannulate the left main coronary ostium. With contrast injection, multiple views of the left coronary arterial system were obtained. JL3.5 was removed with a guidewire and a JR4 was used to cannulate the right coronary arterial osti um. With contrast injection, multiple views of the right coronary system were obtained. JR4 was rem janay over a guidewire and a 6-Ukrainian pigtail was passed down the ascending aorta placed into the LV a nd LVEDP was measured and pulled back across the aortic valve to assess for significant gradient, whi ch there was none and removed. Subsequently at this time, we moved directly into interventional proc edure. The patient had received 5000 units of heparin with his radial cocktail and had an adequate p re-interventional ACT of 273. Subsequently, a Kody right guide was used in attempt to cannulate the right coronary ostium, but before we can cannulate, the patient began to have hypotension and bra dycardia and a junctional rhythm and dopamine was initiated. At this time, we still cannot cannulate the vessel, so our guidewire was exchanged for a JR4 guide which was used to successfully cannulate the right coronary to ostium and with contrast injection, multiple views of vessel were taken and rev ealed this vessel now be occluded in its mid portion, 100%. Subsequently, I was able to get a 0.014 balanced middleweight guidewire was passed distal to the lesion, restoring flow with improvement in b lood pressure and improvement in rhythm. Subsequently, this lesion was stented with a 2.[address] ug-eluting stent deployed at 14 atmospheres x2. Followup angiogram was obtained revealing excellent deployment of stent, ANANTH 3 flow throughout the vessel, no signs of complication including perforatio n or dissection. Subsequently at this time with wire into the PDA a 2.0 x 12 mm balloon was used to perform balloon angioplasty along the PDA. After which, it was found to be a small caliber vessel an d we had very minimal residual stenosis. Subsequently, the patient's interventional guide and balloo ns were removed. The patient received 200 of IC nitroglycerin and followup angiogram was obtained ex cellent result, deployment of stent and balloon angioplasty of PDA. Subsequently, the interventional guide was removed. This completed the procedure. There are no noted complications. FINDINGS: Coronary angiography: Left main is 4 mm, no significant focal stenoses. Circumflex proxi eve is a 3 mm vessel and splits and the circ continuation AV groove is free of significant focal st enoses and a reasonably sized obtuse marginal of 2.5 mm vessel with no significant focal stenoses. T here is a mid branching obtuse marginal 2 mm, no significant focal stenoses and a high branching lisa s obtuse marginal ramus branch approximately 2 mm, no significant focal stenoses. LAD proximally is 3.5 mm vessel and has some luminal irregularities of approximately 10% to 20% in its midportion. Rem ainder of the LAD is free from significant focal stenoses goes around the apex. There is a proximal branching diagonal 2.5 mm mid branching diagonal, 2 mm each with no significant focal stenoses. Righ t coronary artery proximally is a 3.5 mm vessel and in its mid portion somewhat difficult to tell ___ _ and acute marginal appears to have a high-grade lesion. The right coronary is dominant vessel, giv es off a 2 mm PDA which then has 2 areas of approximately 80% to 90% stenosis in the mid portion and a posterolateral branch approximately 2 mm with no significant focal stenoses. PTCA and stent placement: Prior to a PTCA and stent placement in the mid right coronary artery, the patient had 100% occlusion at that point and it closed down. Post PTCA and stent placement, no resid ual occlusion, ANANTH 3 flow throughout the vessel, no signs of complication including perforation or d issection. PTCA and stent placement in PDA: Prior to PTCA, PDA has 80% followed by 90% stenosis. Post-PTCA and stent placement, the patient had residual 20% and a 10% stenosis, ANANTH 3 flow throughout the vessel, no signs of complication including perforation or dissection. Measurement of LVEDP of 14 to 16, no significant aortic stenosis by gradient. TOTAL FLUOROSCOPY TIME: 9.9 minutes. TOTAL CONTRAST: 160 mL. IMPRESSION: Single vessel obstructive coronary artery disease involving a high-grade lesion that the n became 100% lesion in ____, status post successful PTCA and stent placement and a PDA lesion, statu s post PTCA x2. RECOMMENDATIONS: In light of procedure findings at this time, we would: 1. Brilinta 90 mg 1 tab p.o. b.i.d. x1 year. 2. Aspirin 81 mg 1 tab p.o. daily indefinitely. 3. Maximize medical management. 4. Aggressive risk factor reduction. 5. The patient will be readmitted to telemetry for post-cath observation and continued management of symptoms with probable discharge the following day. Dictated By: KARUNA CRESPO/EMELINA Conf#: [id number] DID#: [id number]
[2018-02-02] MEDS: ISOSORBIDE MONONITRATE 20 MG TAB PO SCH (21:47)
[2018-02-02] MEDS: AMLODIPINE 10 MG TAB PO SCH (21:49)
[2018-02-02] MEDS: ATORVASTATIN 40 MG TAB PO SCH (21:49)
[2018-02-02] MEDS: TICAGRELOR 90 MG TABLET PO SCH (21:53)
[2018-02-03] VITALS (15 sets, daily range): BP systolic 102–167; BP diastolic 41–114; PULSE 58–75; RESP 11–21
[2018-02-03] MEDS: FUROSEMIDE 20 MG TAB PO SCH (06:01)
--- NOTE | 2018-02-03 06:36 | NUR ---
EOSS Pt vitals remained stable through night. Complaint of mild chest pain relieved with nitro SL x1, no further complaints of pain. Pt OOB during night, ambulated in room. Pt currently resting in bed, call light within reach, will endorse to oncoming RN.
[2018-02-03] MEDS: METOPROLOL (XL) 25 MG TAB PO SCH (08:06)
[2018-02-03] MEDS: LOSARTAN 50 MG TAB PO SCH (08:06)
[2018-02-03] MEDS: TAMSULOSIN (SR) 0.4 MG CAP PO SCH (08:07)
[2018-02-03] MEDS: TICAGRELOR 90 MG TABLET PO SCH (08:16)
[2018-02-03] MEDS ORDERED: ASPIRIN (EC) 81 MG TAB PO SCH (09:00)
--- NOTE | 2018-02-03 09:45 | PN ---
Date/Time of Note Date/Time of Note DATE: 02/03/18 TIME: 09:34 Assessment/Plan VTE Prophylaxis Risk [place] [facility] [place] risk: 5 SCD applied ([place] [facility] [place] Yes Pharmacological prophylaxis: LMWH Pharm contraindication: other (post procedure ) Lines/Catheters IV Catheter Type (from [facility] [place]): Peripheral IV Urinary Cath still in place: No Assessment/Plan Assessment/Plan 87-year-old male with: 1. Dyspnea and dyspnea on exertion, mild CHF exacerbation on chest x-ray. Patient responding to diuresis fairly well. Discharge plan on Lasix 20 mg p.o. daily. Follow-up with PCP and cardiology as an outpatient. 2D echocardiogram on this admission confirming diastolic dysfunction, EF 60%, severe concentric LVH. s/p stenting of RCA 2. Hypertension status post hypertensive urgency overnight, medication adjusted, blood pressure better controlled this morning. Continue current beta-blockers, nitrates, hydralazine and ARB, also on Norvasc. 3. NSTEMI, positive stress test, status post cardiac angiogram and stenting of RCA, POD#1. Continue current medications including antiplatelet therapy, blood pressure medications and low-dose diuretics. 4. Hyperlipidemia: Continue statin therapy 5. Peripheral vascular disease, status post bilateral carotid enterectomy. Continue statin therapy along with antiplatelets and blood pressure control. 6. BPH: Continue Flomax. Prophylaxis: Lovenox for DVT prophylaxis, patient tolerating p.o. Disposition: Status post angiogram with RCA stenting POD#1. Discharge planning home today if okay with cardiology. Patient will need PCP and cardio follow-up. Result Diagram: 02/03/18 0424 02/03/18 0424 Results 24hrs Laboratory Tests Test 02/03/18 04:24 White Blood Count 6.1 # Red Blood Count 5.06 Hemoglobin 12.3 L Hematocrit 37.4 L Mean Corpuscular Volume 73.9 L Mean Corpuscular Hemoglobin 24.3 L Mean Corpuscular Hemoglobin Concent 32.9 Red Cell Distribution Width 17.3 H Platelet Count 166 Mean Platelet Volume 12.1 H Immature Granulocytes % 0.300 Neutrophils % 74.7 Lymphocytes % 17.2 Monocytes % 7.2 Eosinophils % 0.3 Basophils % 0.3 Nucleated Red Blood Cells % 0.0 Immature Granulocytes # 0.020 Neutrophils # 4.6 Lymphocytes # 1.1 Monocytes # 0.4 Eosinophils # 0.0 Basophils # 0.0 Nucleated Red Blood Cells # 0.0 Sodium Level 140 Potassium Level 3.7 Chloride Level 103 Carbon Dioxide Level 29 Anion Gap 8 Blood Urea Nitrogen 17 Creatinine 0.86 Est Glomerular Filtrat Rate mL/min Glucose Level 104 Calcium Level 8.7 Phosphorus Level 4.3 Magnesium Level 1.8 Subjective 24 Hr Interval Summary Free Text/Dictation Patient doing well, on room air. Able to lie flat. Status post stenting of RCA. If okay with cardiology, plan for discharge home this afternoon. No arrhythmias noted. Vital signs stable. Exam/Review of Systems Vital Signs Vitals Vital Signs Date Temp Pulse Resp B/P (MAP) Pulse Ox O2 O2 Flow FiO2 Time Delivery Rate 02/03/18 97.7 65 16 156/70 100 Room Air 08:00 (98) 02/02/18 2.0 12:00 Intake and Output 02/02/18 02/02/18 02/03/18 1515:00 23:00 07:00 IntakeIntake Total 150 ml 850 ml 330 ml OutputOutput Total 400 ml 700 ml BalanceBalance 150 ml 450 ml -370 ml Exam Constitutional: alert, oriented, well developed Respiratory: clear to auscultation, normal air movement Cardiovascular: regular rate and rhythm, nl pulses Gastrointestinal: soft, non-tender Musculoskeletal: nl extremities to inspection Extremities: normal pulses Neurological: PETROLEUM ENGINEER II-XII intact, nl mental status, nl speech, nl strength Medications Medications Current Medications Atorvastatin Calcium (Lipitor) 40 mg QHS PO Last administered on 02/02/18at 21: 49; Admin Dose 40 MG; Start 01/30/18 at 21:00 Isosorbide Mononitrate (Ismo) 20 mg QHS PO Last administered on 02/02/18at 21:47; Admin Dose 20 MG; Start 01/30/18 at 21:00 Methocarbamol (Robaxin) 750 mg Q6H PRN PO MUSCLE SPASMS; Start 01/30/18 at 18:00 Metoprolol Succinate (Toprol Xl) 25 mg DAILY PO Last administered on 02/03/18at 08:06; Admin Dose 25 MG; Start 01/31/18 at 09:00 Tamsulosin HCl (Flomax) 0.4 mg DAILY PO Last administered on 02/03/18at 08:07; Admin Dose 0.4 MG; Start 01/31/18 at 09:00 Losartan Potassium (Cozaar) 50 mg BID PO Last administered on 02/03/18 08:06; Admin Dose 50 MG; Start 01/30/18 at 21:00 Hydralazine HCl (Apresoline) 10 mg Q8H PRN IV for SBP>160 Last administered on 01/30/18at 18:32; Admin Dose 10 MG; Start 01/30/18 at 18:00 IV Flush (NS 3 ml) 3 ml PER PROTOCOL IV ; Start 01/30/18 at 18:00 Nitroglycerin (Nitroglycerin (Sl Tab) 0.4 Mg) 1 tab Q5M PRN SL CHEST PAIN Last administered on 02/02/18at 23:57; Admin Dose 1 TAB; Start 01/30/18 at 18:00 Acetaminophen (Tylenol Tab) 650 mg Q6H PRN PO PAIN LEVEL 1-3 OR FEVER; Start 01/30/18 at 18:00 Docusate Sodium (Colace) 100 mg Q12H PRN PO CONSTIPATION; Start 01/30/18 at 18:00 Magnesium Hydroxide (Milk Of Mag) 30 ml DAILY PRN PO CONSTIPATION; Start 01/30/18 at 18:00 Bisacodyl (Dulcolax Supp) 10 mg DAILY PRN [place] CONSTIPATION; Start 01/30/18 at 18:00 Amlodipine Besylate (Norvasc) 10 mg QHS PO Last administered on 02/02/18at 21:49; Admin Dose 10 MG; Start 01/31/18 at 21:00 Furosemide (Lasix) 20 mg BID DIURETICS PO Last administered on 02/03/18at 06:01; Admin Dose 20 MG; Start 02/01/18 at 18:00 Hydralazine HCl (Apresoline) 75 mg TID PO Last administered on 02/03/18 08:07; Admin Dose 75 MG; Start 02/01/18 at 13:00 Aspirin (Halfprin) 81 mg DAILY PO Last administered on 02/03/18 08:06; Admin Dose 81 MG; Start 02/03/18 at 09:00 Ticagrelor (Brilinta) 90 mg BID PO Last administered on 02/03/18 08:16; Admin Dose 90 MG; Start 02/02/18 at 21:00 Acetaminophen (Tylenol Tab) 650 mg Q4H PRN PO pain; Start 02/02/18 at 11:30 Oxycodone/ Acetaminophen (Percocet (5/ 325)) 1 tab Q4H PRN PO pain; Start 02/02/18 at 11:30 Morphine Sulfate (morphine) 1 mg Q1H PRN IV pain; Start 02/02/18 at 11:30 Zolpidem Tartrate (Ambien) 5 mg HS MAY REPEAT X 1 PRN PO INSOMNIA; Start 02/02/18 at 11:30 Al Hydrox/Mg Hydrox/Simethicone (Mag-Al Plus) 30 ml Q4H PRN PO GASTROINTESTINAL UPSET; Start 02/02/18 at 11:30 Ondansetron HCl (Zofran Inj) 4 mg Q4H PRN IV NAUSEA AND/OR VOMITING; Start 02/02/18 at 11:30 SHERRIE MUÑOZ Feb 03, 2018 09:45
--- NOTE | 2018-02-03 09:46 | PDOCDIS ---
Discharge Instructions CONDITION [id number] Patient Condition: [id number] Stable HOME CARE INSTRUCTIONS: [id number] Diet Instructions: [id number] Low Fat /Cholesterol ACTIVITY: [id number] Activity Restrictions: [id number] Slowly Increase Activity FOLLOW UP/APPOINTMENTS Follow-up Plan Follow-up with primary care physician within 1 week Follow-up with cardiology, Dr. San, within 1-2 weeks SHERRIE MUÑOZ Feb 03, 2018 09:46
[2018-02-03] MEDS ORDERED: METO-335 PO (09:52)
[2018-02-03] MEDS ORDERED: TICA90TA PO (09:52)
[2018-02-03] MEDS ORDERED: HYDR-4011 PO (09:52)
[2018-02-03] MEDS ORDERED: AMLO-147 PO (09:52)
[2018-02-03] MEDS ORDERED: HYDR-3671 PO (09:52)
[2018-02-03] MEDS ORDERED: LOSA50TA2 PO (09:52)
[2018-02-03] MEDS ORDERED: LAS20 PO (09:52)
[2018-02-03] MEDS ORDERED: ISM20 PO (09:52)
[2018-02-03] MEDS ORDERED: ASPI-1044 PO (09:53)
--- NOTE | 2018-02-03 13:34 | CONS ---
Date/Time of Note Date/Time of Note DATE: 02/03/18 TIME: 13:31 Assessment/Plan Assessment/Plan Hospital Course IMP: 1.Nstemi-lexiscan with reversible inferior defect. Thus given ongoing CP/positive troponin will progress to cardiac cath. Now post-op day#1 s/p stent x 1 to RCA and POBA to PDA x 2 2.HTN 3.CHF-diastolic acute on chronic 4. HL REcc: -IN ICU -Continue norvasc -Contineu asa and brilinta -Continue hydralazine/BB oral nitrates/norvasc/statin -Ok for d/c from cardiac standpoint with outpatient f/u 2-3 weeks. Result Diagram: 02/03/18 0424 02/03/18 0424 Results 24hrs Laboratory Tests Test 02/03/18 04:24 White Blood Count 6.1 # Red Blood Count 5.06 Hemoglobin 12.3 L Hematocrit 37.4 L Mean Corpuscular Volume 73.9 L Mean Corpuscular Hemoglobin 24.3 L Mean Corpuscular Hemoglobin Concent 32.9 Red Cell Distribution Width 17.3 H Platelet Count 166 Mean Platelet Volume 12.1 H Immature Granulocytes % 0.300 Neutrophils % 74.7 Lymphocytes % 17.2 Monocytes % 7.2 Eosinophils % 0.3 Basophils % 0.3 Nucleated Red Blood Cells % 0.0 Immature Granulocytes # 0.020 Neutrophils # 4.6 Lymphocytes # 1.1 Monocytes # 0.4 Eosinophils # 0.0 Basophils # 0.0 Nucleated Red Blood Cells # 0.0 Sodium Level 140 Potassium Level 3.7 Chloride Level 103 Carbon Dioxide Level 29 Anion Gap 8 Blood Urea Nitrogen 17 Creatinine 0.86 Est Glomerular Filtrat Rate mL/min Glucose Level 104 Calcium Level 8.7 Phosphorus Level 4.3 Magnesium Level 1.8 Consultation Date/Type/Reason Admit Date/Time Feb 01, 2018 at 13:54 Initial Consult Date 01/31/18 Type of Consult cardiology Reason for Consultation Nstemi Requesting Provider: SHERRIE MUÑOZ Exam/Review of Systems Vital Signs Vitals Vital Signs Date Temp Pulse Resp B/P (MAP) Pulse Ox O2 O2 Flow FiO2 Time Delivery Rate 02/03/18 98.0 67 14 157/72 98 12:00 (100) 02/03/18 Room Air 11:00 02/02/18 2.0 12:00 Intake and Output 12/28/18 12/28/18 12/29/18 1515:00 23:00 07:00 IntakeIntake Total 150 ml 850 ml 330 ml OutputOutput Total 400 ml 700 ml BalanceBalance 150 ml 450 ml -370 ml Exam Review of Systems: CONSTITUTIONAL: No fevers, chills. PULMONARY: No sob CARDIOVASCULAR: No chest pain/palpitations GASTROINTESTINAL: No nausea/vomiting. GENITOURINARY: No hematuria/dysuria. MUSCULOSKELETAL: No myagias/arthalgias. PSYCHIATRIC: The patient denies depression. NEUROLOGIC: No weakness Constitutional: alert, oriented Psych: no complaints Head: normocephalic ENMT: mucosa pink and moist Neck: supple, jvd (9 cm water) Respiratory: clear to auscultation Cardiovascular: regular rate and rhythm Gastrointestinal: soft, non-tender Musculoskeletal: muscle weakness (mild generalized) Extremities: edema (none) Neurological: other (No focal deficits) Medications Medications Current Medications Atorvastatin Calcium (Lipitor) 40 mg QHS PO Last administered on 02/02/18at 21:49; Admin Dose 40 MG; Start 01/30/18 at 21:00 Isosorbide Mononitrate (Ismo) 20 mg QHS PO Last administered on 02/02/18at 21:47; Admin Dose 20 MG; Start 01/30/18 at 21:00 Methocarbamol (Robaxin) 750 mg Q6H PRN PO MUSCLE SPASMS; Start 01/30/18 at 18:00 Metoprolol Succinate (Toprol Xl) 25 mg DAILY PO Last administered on 02/03/18 08:06; Admin Dose 25 MG; Start 01/31/18 at 09:00 Tamsulosin HCl (Flomax) 0.4 mg DAILY PO Last administered on 02/03/18 08:07; Admin Dose 0.4 MG; Start 01/31/18 at 09:00 Losartan Potassium (Cozaar) 50 mg BID PO Last administered on 02/03/18 08:06; Admin Dose 50 MG; Start 01/30/18 at 21:00 Hydralazine HCl (Apresoline) 10 mg Q8H PRN IV for SBP>160 Last administered on 01/30/18at 18:32; Admin Dose 10 MG; Start 01/30/18 at 18:00 IV Flush (NS 3 ml) 3 ml PER PROTOCOL IV ; Start 01/30/18 at 18:00 Nitroglycerin (Nitroglycerin (Sl Tab) 0.4 Mg) 1 tab Q5M PRN SL CHEST PAIN Last administered on 02/02/18at 23:57; Admin Dose 1 TAB; Start 01/30/18 at 18:00 Acetaminophen (Tylenol Tab) 650 mg Q6H PRN PO PAIN LEVEL 1-3 OR FEVER; Start 01/30/18 at 18:00 Docusate Sodium (Colace) 100 mg Q12H PRN PO CONSTIPATION; Start 01/30/18 at 18:00 Magnesium Hydroxide (Milk Of Mag) 30 ml DAILY PRN PO CONSTIPATION; Start 01/30/18 at 18:00 Bisacodyl (Dulcolax Supp) 10 mg DAILY PRN [place] CONSTIPATION; Start 01/30/18 at 18:00 Amlodipine Besylate (Norvasc) 10 mg QHS PO Last administered on 02/02/18at 21:49; Admin Dose 10 MG; Start 01/31/18 at 21:00 Furosemide (Lasix) 20 mg BID DIURETICS PO Last administered on 02/03/18at 06 :01; Admin Dose 20 MG; Start 02/01/18 at 18:00 Hydralazine HCl (Apresoline) 75 mg TID PO Last administered on 02/03/18at 13:08; Admin Dose 75 MG; Start 02/01/18 at 13:00 Aspirin (Halfprin) 81 mg DAILY PO Last administered on 02/03/18at 08:06; Admin Dose 81 MG; Start 02/03/18 at 09:00 Ticagrelor (Brilinta) 90 mg BID PO Last administered on 02/03/18at 08:16; Admin Dose 90 MG; Start 02/02/18 at 21:00 Acetaminophen (Tylenol Tab) 650 mg Q4H PRN PO pain; Start 02/02/18 at 11:30 Oxycodone/ Acetaminophen (Percocet (5/ 325)) 1 tab Q4H PRN PO pain; Start 02/02/18 at 11:30 Morphine Sulfate (morphine) 1 mg Q1H PRN IV pain; Start 02/02/18 at 11:30 Zolpidem Tartrate (Ambien) 5 mg HS MAY REPEAT X 1 PRN PO INSOMNIA; Start 02/02/18 at 11:30 Al Hydrox/Mg Hydrox/Simethicone (Mag-Al Plus) 30 ml Q4H PRN PO GASTROINTESTINAL UPSET; Start 02/02/18 at 11:30 Ondansetron HCl (Zofran Inj) 4 mg Q4H PRN IV NAUSEA AND/OR VOMITING; Start 02/02/18 at 11:30 KARUNA MURRAY Feb 03, 2018 13:34
--- NOTE | 2018-02-03 13:40 | NUR ---
Pt. discharged to home. Wore his own clothes home and took the rest of his belongings with him at time. Accompanied by volunteer via wheelchair to await taxi service at the front entrance. Voucher used. Pt received all education and information at time of discharge and signed paperwork accordingly. Patient received information and discount coupon for Brilinta prescription. VSS and no c/o of pain and no bleeding or swelling noted from R radial site. Instructed to follow up with PCP and Dr. San after discharge.
--- NOTE | 2018-02-04 08:37 | RADRPT ---
Vent Rate: 54 bpm RR Interval: 0 msec SC Interval: 198 msec QRS Duration: 120 msec QT Interval: 496 msec QTC Interval: 470 msec P-R-T Perry: 78 - -72 - 99 degrees Sinus bradycardia with blocked premature atrial complexes Left axis deviation Septal infarct , age undetermined T wave abnormality, consider lateral ischemia Abnormal ECG Electronically Signed By: Jony Peña [id number]
--- NOTE | 2018-02-04 08:39 | RADRPT ---
Vent Rate: 60 bpm RR Interval: 0 msec HI Interval: 200 msec QRS Duration: 106 msec QT Interval: 456 msec QTC Interval: 456 msec P-R-T Bayard: 93 - -68 - 93 degrees Sinus rhythm with marked sinus arrhythmia Left axis deviation Septal infarct , age undetermined ST amp; T wave abnormality, consider lateral ischemia Abnormal ECG Electronically Signed By: Jony Peña [id number]
--- NOTE | 2018-02-04 10:35 | DS ---
Date/Time of Note Date/Time of Note DATE: 02/04/18 TIME: 10:31 Discharge Summary Admission/Discharge Info Admit Date/Time Feb 01, 2018 at 13:54 Discharge Date/Time Feb 03, 2018 at 13:25 Discharge Diagnosis 1. CHF exacerbation, chronic diastolic with acute exacerbation, ejection fraction 60%. 2. Hypertension 3. Coronary artery disease, status post NSTEMI, and cardiac angiogram and stenting of RCA 4. Hyperlipidemia 5. Peripheral vascular disease. 6. BPH Patient Condition: Stable Consults Cardiology, Dr. San Procedures Cardiac angiogram with stenting of RCA. Lexiscan stress test. Hx of Present Illness Chief complaint: Worsening dyspnea on exertion and shortness of breath History of presenting illness: 87-year-old male with history of severe hypertension, hyperlipidemia, BPH, previous diagnosis of diastolic congestive heart failure, echocardiogram in May 2016 with ejection fraction of 65% and severe concentric LVH who presented the emergency department with complaint of increasing dyspnea on exertion and more recently today, having shortness of breath at rest. He called 911, in the emergency department he is found to be in CHF exacerbation with pulmonary edema, mild seen on chest x-ray. He feels better with 2 L nasal cannula on board, he has been responding to Lasix 20 mg IV very well with significant diuresis. Patient reports that over the past few weeks, he has been having worsening dyspnea on exertion when going up his 16 stairs at home, he always has to stop to catch his breath. This morning after having breakfast and sitting on the chair he started getting short of breath. He also reports that he does have to adjust his bed in order to have his head up when he is sleeping and describes orthopnea when he lies flat. Patient is aware he has congestive heart failure but he is reporting that he was told 6 months ago whereas on our records here at [facility] he was diagnosed with diastolic heart failure almost a year and a half ago. His medications have been reviewed, he is on beta- blockers and antihypertensives but not on diuretics. 2D echocardiogram in May 2016 did show severe concentric LVH and an ejection fraction of 65%, stress test done at that time was negative for significant ischemic area. He denies any lower extremity edema, chest pains or chest pressure, diaphoresis, palpitations. Patient's BNP is 3200 and first troponin negative. He will be monitored overnight on telemetry, ruled out for acute coronary syndrome, blood pressure control and diuresis. Hospital Course Patient was admitted to telemetry, he was started on diuretics, blood pressure was better controlled, stress test was done came back again with small reversible area of ischemia, patient proceeded with cardiac angiogram which was complicated during the procedure with episode of bradycardia resolved right after stenting of RCA while still in the [employer]. Patient did not have any postprocedure complications and remained stable while being monitored in the intensive care unit for 24 hours. He was therefore discharged home on his blood pressure medication, antiplatelet therapy including aspirin and Brilinta, statin therapy. He is to follow-up with cardiology within 1-2 weeks and follow-up with his primary care physician within 1 week. Home Meds Active Scripts Aspirin Delayed Release (Aspirin Delayed Release) 81 Mg Tablet.dr, 81 MG PO DAILY for 30 Days, 11 Refills Prov:SHERRIE MUÑOZ 02/03/18 Hydralazine Hcl* (Hydralazine Hcl*) 25 Mg Tab, 75 MG PO TID for 30 Days, TAB 3 Refills Prov:SHERRIE MUÑOZ 02/03/18 Losartan Potassium* (Cozaar*) 50 Mg Tablet, 50 MG PO BID for 30 Days, TAB 3 Refi lls [facility] 02/03/18 Amlodipine Besylate* (Amlodipine Besylate*) 10 Mg Tablet, 10 MG PO QHS for 30 Days, TAB 3 Refills Prov:Dylon [facility] 02/03/18 Metoprolol Succinate* (Toprol XL*) 25 Mg Tab.sr.24h, 25 MG PO DAILY for 30 Days, 3 Refills Prov:WANDAMICHELASC[facility] 02/03/18 Furosemide (Lasix) 20 Mg Tab, 20 MG PO DAILY for 30 Days, TAB 3 Refills Prov:[facility] 02/03/18 Ticagrelor* (Brilinta*) 90 Mg Tablet, 90 MG PO BID for 30 Days, TAB 11 Refills Prov:[facility] 02/03/18 Isosorbide Mononitrate* (Ismo*) 20 Mg Tablet, 20 MG PO QHS for 30 Days, TAB 3 Refills Prov:WANDADylonASC[facility] 02/03/18 Methocarbamol* (Robaxin*) 750 Mg Tablet, 750 MG PO Q6H PRN for MUSCLE SPASMS, #20 TAB Prov:SAMINA LOPEZ DO 10/12/17 Reported Medications Atorvastatin* (Atorvastatin*) 40 Mg Tablet, 40 MG PO QHS, #30 TAB 07/07/16 Tamsulosin Hcl* (Tamsulosin Hcl*) 0.4 Mg Cap.er.24h, 0.4 MG ORAL DAILY, #90 05/16/16 Discontinued Reported Medications Doxazosin Mesylate* (Doxazosin Mesylate*) 2 Mg Tablet, 2 MG PO QHS 01/30/18 Simvastatin (Simvastatin) 40 Mg Tablet, 40 MG PO QHS, #30 TAB 01/30/18 Hydralazine Hcl* (Hydralazine Hcl*) 50 Mg Tab, 50 MG PO TID, #90 TAB 07/07/16 Valsartan (Valsartan) 320 Mg Tablet, 320 MG ORAL DAILY, #30 05/16/16 Amlodipine Besylate* (Amlodipine Besylate*) 10 Mg Tablet, 10 MG ORAL DAILY, #180 05/16/16 Discontinued Scripts Naproxen* (Naproxen*) 375 Mg Tablet, 375 MG PO BID PRN for PAIN, #10 TAB Prov:SAMINA LOPEZ DO 10/12/17 Hydrocodone/Acetaminophen ([place] 5-325 Tablet) 1 Each Tablet, 1 EACH PO Q6 PRN for SEVERE PAIN LEVEL 7-10, #10 TAB Prov:SAMINA LOPEZ DO 10/12/17 Metoprolol Succinate* (Toprol XL*) 25 Mg Tab.sr.24h, 25 MG PO DAILY for 14 Days, #14 Prov:KENRICK LAMAR MD 05/18/16 Follow-up Plan Follow-up with primary care physician within 1 week Follow-up with cardiology, Dr. San, within 1-2 weeks Primary Care Provider Stephen Mahmood Time spent on discharge: > 30 minutes SHERRIE MUÑOZ Feb 04, 2018 10:34
== END 2018-02-03 13:25 | disposition home health service (06) | DRG 246 ==
LOC: E/R 13:36 → 6WM 16:16 → OBSVTOIN 02-01 13:54 → ICU 02-02 10:48
PROVIDERS: ADMIT Internal Medicine; ATTEND Internal Medicine
PROC: 4A023N7 Measurement of Cardiac Sampling and Pressure, Left Heart, Percutaneous Approach (ICD-10-PCS; 2018-02-02)
PROC: B2111ZZ Fluoroscopy of Multiple Coronary Arteries using Low Osmolar Contrast (ICD-10-PCS; 2018-02-02)
PROC: 027034Z Dilation of Coronary Artery, One Artery with Drug-eluting Intraluminal Device, Percutaneous Approach (ICD-10-PCS; principal; 2018-02-02 09:30)
PROC: 02703ZZ Dilation of Coronary Artery, One Artery, Percutaneous Approach (ICD-10-PCS; 2018-02-02 09:30)
DX: I21.4 Non-ST elevation (NSTEMI) myocardial infarction (principal); I50.33 Acute on chronic diastolic (congestive) heart failure; I16.0 Hypertensive urgency; I11.0 Hypertensive heart disease with heart failure; Z87.891 Personal history of nicotine dependence; E78.5 Hyperlipidemia, unspecified; I73.9 Peripheral vascular disease, unspecified; N40.0 Benign prostatic hyperplasia without lower urinary tract symptoms; I25.10 Atherosclerotic heart disease of native coronary artery without angina pectoris; I95.89 Other hypotension; R00.1 Bradycardia, unspecified
CPT/HCPCS: 36415; 71045; 71046; 78452; 80048; 80053; 82550; 82553; 83735; 83880; 84100; 84439; 84443; 84484; 85025; 87081; 93005; 93017; 93306; 93458; 96374; G0378; A9500; A9505; C1725; C1874; C1887; C1894; C9600; J0360; J1265; J1644; J1650; J1940; J2250; J2785; J3010; J7030; J7040; Q9967

== ENCOUNTER 2018-02-10 15:30 | Inpatient (IN) | payer OTHER ==
[~2018-02-10] VITALS: Ht 172.7 cm; Wt 77.3 kg
[~2018-02-10 15:30] MED LIST changes: -AMLO-147 ORAL; +AMLO-147 PO; +ASPI-1044 PO; +HYDR-3671 PO; -HYDR-3672 PO; -HYDR-4011 PO; +ISM20 PO; +LAS20 PO; +LOSA50TA2 PO; -NAPR-685 PO; +TICA90TA PO; -VALS320T15 ORAL
[2018-02-10] MEDS ORDERED: SOD CHLORIDE 0.9% 500 ML IV STA (15:40)
[2018-02-10] MEDS ORDERED: ALBUTEROL 0.5% (NEB) 2.5 MG/0.5 ML AMP INH STA (16:11)
[2018-02-10] MEDS ORDERED: predniSONE 20 MG TAB PO STA (16:11)
[2018-02-10] MEDS ORDERED: SIMV40TA2 PO (16:15)
[2018-02-10] MEDS ORDERED: VALS320T2 PO (16:16)
[2018-02-10] MEDS ORDERED: NAPR-688 PO (16:17)
[2018-02-10] MEDS ORDERED: DOXA2TAB PO (16:17)
[2018-02-10] MEDS ORDERED: CHOL100062 PO (16:27)
[2018-02-10] MEDS ORDERED: ASPIRIN 81 MG TAB PO ONE (17:00)
--- NOTE | 2018-02-10 17:56 | ERD ---
ER Documentation Chief Complaint Chief Complaint PT BIB RA WITH COMPLAIN OF " FEELING WEIRD" AND WEAK SINCE AM HPI 87-year-old male with a history of hypertension, high cholesterol, CAD with recent PCI 02/02/[address] San, presenting to the ER by ambulance as he has been feeling unwell for the past 2 days. He is unable to explain exactly what symptoms he has been having. He denies any chest pain but has had intermittent shortness of breath. He feels generally weak. No fevers or chills. No cough or hemoptysis. No vomiting or diarrhea. ROS All systems reviewed and are negative except as per history of present illness. Medications Home Meds Active Scripts Aspirin Delayed Release (Aspirin Delayed Release) 81 Mg Tablet., 81 MG PO DAILY for 30 Days, 11 Refills Prov:WANDA,NGemmaGENOVEVAJORDYN 02/03/18 Hydralazine Hcl* (Hydralazine Hcl*) 25 Mg Tab, 75 MG PO TID for 30 Days, TAB 3 Refills Prov:Elena [facility]ZGemmaM[facility] 02/03/18 Losartan Potassium* (Cozaar*) 50 Mg Tablet, 50 MG PO BID for 30 Days, TAB 3 Refills Prov:WANDA,[facility] 02/03/18 Amlodipine Besylate* (Amlodipine Besylate*) 10 Mg Tablet, 10 MG PO QHS for 30 Days, TAB 3 Refills Prov:WANDA,[facility] 02/03/18 Metoprolol Succinate* (Toprol XL*) 25 Mg Tab.sr.24h, 25 MG PO DAILY for 30 Days, 3 Refills Prov:MIHCEL [facility] 02/03/18 Furosemide (Lasix) 20 Mg Tab, 20 MG PO DAILY for 30 Days, TAB 3 Refills Prov:[facility]DA,[facility] 02/03/18 Ticagrelor* (Brilinta*) 90 Mg Tablet, 90 MG PO BID for 30 Days, TAB 11 Refills Prov:WANDA,NGENOVEVAMUN[facility] 02/03/18 Isosorbide Mononitrate* (Ismo*) 20 Mg Tablet, 20 MG PO QHS for 30 Days, TAB 3 Refills Prov:Elena MUÑOZGENOVEVAMUNSON [facility] 02/03/18 Methocarbamol* (Robaxin*) 750 Mg Tablet, 750 MG PO Q6H PRN for MUSCLE SPASMS, #20 TAB Prov:SAMINA LOPEZ DO 10/12/17 Reported Medications Cholecalciferol* (Vitamin D3*) 1,000 Unit Tablet, 1000 UNIT PO DAILY, TAB 02/10/18 Naproxen* (Naproxen*) 500 Mg Tablet, 500 MG PO BID, TAB 02/10/18 Doxazosin Mesylate* (Doxazosin Mesylate*) 2 Mg Tablet, 2 MG PO HS, TAB 02/10/18 Valsartan* (Diovan*) 320 Mg Tablet, 320 MG PO DAILY, TAB 02/10/18 Simvastatin* (Zocor*) 40 Mg Tablet, 40 MG PO QHS, #30 TAB 02/10/18 Discontinued Reported Medications Atorvastatin* (Atorvastatin*) 40 Mg Tablet, 40 MG PO QHS, #30 TAB 07/07/16 Tamsulosin Hcl* (Tamsulosin Hcl*) 0.4 Mg Cap.er.24h, 0.4 MG ORAL DAILY, #90 05/16/16 Doxazosin Mesylate* (Doxazosin Mesylate*) 2 Mg Tablet, 2 MG PO QHS 01/30/18 Simvastatin (Simvastatin) 40 Mg Tablet, 40 MG PO QHS, #30 TAB 01/30/18 Hydralazine Hcl* (Hydralazine Hcl*) 50 Mg Tab, 50 MG PO TID, #90 TAB 07/07/16 Valsartan (Valsartan) 320 Mg Tablet, 320 MG ORAL DAILY, #30 05/16/16 Amlodipine Besylate* (Amlodipine Besylate*) 10 Mg Tablet, 10 MG ORAL DAILY, #180 05/16/16 Discontinued Scripts Naproxen* (Naproxen*) 375 Mg Tablet, 375 MG PO BID PRN for PAIN, #10 TAB Prov:SAMINA LOPEZ DO 10/12/17 Hydrocodone/Acetaminophen ([place] 5-325 Tablet) 1 Each Tablet, 1 EACH PO Q6 PRN for SEVERE PAIN LEVEL 7-10, #10 TAB Prov:SAMINA LOPEZ DO 10/12/17 Metoprolol Succinate* (Toprol XL*) 25 Mg Tab.sr.24h, 25 MG PO DAILY for 14 Days, #14 Prov:KENRICK LAMAR MD 05/18/16 Allergies Allergies: Coded Allergies: No Known Allergy (Unverified , 1/5/19) PMhx/Soc History of Surgery: Yes (BILATERAL CAROTID ENDERECTOMY ) Anesthesia Reaction: No Hx Neurological Disorder: No Hx Respiratory Disorders: No Hx Cardiac Disorders: Yes (CAD- stent to RCA, peripheral artery disease, CHF) Hx Psychiatric Problems: No Hx Miscellaneous Medical Probl: Yes (HTN, CHOLESTEROL) Hx Alcohol Use: No Hx Substance Use: No Hx Tobacco Use: Yes Smoking Status: Current every day smoker FmHx Family History: No diabetes Physical Exam Vitals Vital Signs Date Temp Pulse Resp B/P (MAP) Pulse Ox O2 O2 Flow FiO2 Time Delivery Rate 02/10/18 64 17 148/74 100 Room Air 18:30 (98) 02/10/18 98.2 65 16 178/67 100 Room Air 17:20 (104) 02/10/18 97.4 65 18 155/76 100 15:38 (102) Physical Exam Const: No acute distress Head: Atraumatic Eyes: Normal Conjunctiva ENT: Normal External Ears, Nose and Mouth. Neck: Full range of motion. No meningismus. Resp: Clear to auscultation bilaterally Cardio: Regular rate and rhythm, no murmurs. 2+ distal pulses Abd: Soft, non tender, non distended. Normal bowel sounds Skin: No petechiae or rashes Back: No midline or flank tenderness Ext: No cyanosis, or edema Neur: Awake and alert Psych: Normal Mood and Affect Result Diagram: 02/10/18 1537 02/10/18 1537 Results 24 hrs Laboratory Tests Test 02/10/18 15:37 02/10/18 17:10 White Blood Count 4.6 10^3/ul Red Blood Count 5.31 10^6/ul Hemoglobin 12.8 g/dl Hematocrit 39.3 % Mean Corpuscular Volume 74.0 fl Mean Corpuscular Hemoglobin 24.1 pg Mean Corpuscular Hemoglobin Concent 32.6 g/dl Red Cell Distribution Width 16.8 % Platelet Count 173 10^3/UL Mean Platelet Volume 11.5 fl Immature Granulocytes % 0.200 % Neutrophils % 45.7 % Lymphocytes % 39.2 % Monocytes % 8.5 % Eosinophils % 5.5 % Basophils % 0.9 % Nucleated Red Blood Cells % 0.0 /100WBC Immature Granulocytes # 0.010 10^3/ul Neutrophils # 2.1 10^3/ul Lymphocytes # 1.8 10^3/ul Monocytes # 0.4 10^3/ul Eosinophils # 0.3 10^3/ul Basophils # 0.0 10^3/ul Nucleated Red Blood Cells # 0.0 10^3/ul Sodium Level 139 mmol/L Potassium Level 3.4 mmol/L Chloride Level 101 mmol/L Carbon Dioxide Level 29 mmol/L Anion Gap 9 Blood Urea Nitrogen 12 mg/dl Creatinine 0.83 mg/dl Est Glomerular Filtrat Rate mL/min mL/min Glucose Level 119 mg/dl Calcium Level 9.1 mg/dl Troponin I 0.202 ng/ml Urine Color YELLOW Urine Clarity CLEAR Urine pH 6.0 Urine Specific [place] 1.009 Urine Ketones NEGATIVE mg/dL Urine Nitrite NEGATIVE mg/dL Urine Bilirubin NEGATIVE mg/dL Urine Urobilinogen 1+ mg/dL Urine Leukocyte Esterase NEGATIVE Son[place]/ul Urine Hemoglobin NEGATIVE mg/dL Urine Glucose NEGATIVE mg/dL Urine Total Protein NEGATIVE mg/dl Current Medications Medications Dose Sig/Jama Start Time Status Last (Trade) Ordered Route PRN Stop Time Admin Dose Reason Admin Sodium 500 ml @ Q1H STAT 02/10/18 DC 02/10/18 Chloride 500 mls/hr IV 15:40 02/10/18 16:21 16:39 Albuterol 10 mg ONCE STAT 02/10/18 DC (Proventil INH 16:11 02/10/18 0.5% (Neb)) 16:14 Prednisone 60 mg ONCE STAT 02/10/18 DC (Prednisone) PO 16:11 02/10/18 16:14 Aspirin 162 mg ONCE ONCE 02/10/18 DC 02/10/18 (Aspirin) PO 17:00 02/10/18 17:29 17:01 Ondansetron 4 mg ER BRIDGE 02/10/18 DC HCl (Zofran PRN IV 18:00 02/10/18 Inj) NAUSEA AND/OR 19:15 VOMITING 650 mg ER BRIDGE 02/10/18 DC Acetaminophen PRN PO MILD 18:00 02/10/18 (Tylenol PAIN(1-3)OR 19:14 Tab) ELEVATED TEMP Amlodipine 10 mg QHS PO 02/10/18 Besylate 21:00 (Norvasc) Aspirin 81 mg DAILY PO 02/11/18 (Halfprin) 09:00 1,000 unit DAILY PO 02/11/18 Cholecalcifer 09:00 ol (Vitamin D) Doxazosin 2 mg HS PO 02/10/18 Mesylate 21:00 (Cardura) Hydralazine 75 mg TID PO 02/10/18 HCl 21:00 (Apresoline) Isosorbide 20 mg QHS PO 02/10/18 Mononitrate 21:00 (Ismo) 750 mg Q6H PRN 02/10/18 Methocarbamol PO MUSCLE 19:00 (Robaxin) SPASMS Metoprolol 25 mg DAILY PO 02/11/18 Succinate 09:00 (Toprol Xl) Ticagrelor 90 mg BID PO 02/10/18 (Brilinta) 21:00 40 mg QHS PO 02/10/18 UNV Miscellaneous 21:00 Information 320 mg DAILY PO 02/11/18 UNV Miscellaneous 09:00 Information Minoxidil 2.5 mg Q6H PRN 02/10/18 (Loniten) PO sbp>160 19:00 Sodium 1,000 ml @ Q10H IV 02/10/18 02/10/18 Chloride 100 mls/hr 19:00 19:13 650 mg Q4H PRN 02/10/18 Acetaminophen PO PAIN 19:00 (Tylenol Tab) Ondansetron 4 mg Q4H PRN 02/10/18 HCl (Zofran IV nausea 19:00 Inj) Morphine 2 mg Q2H PRN 02/10/18 Sulfate IV pain 19:00 (morphine) Procedures/MDM EMERGENT LABS AND DIAGNOSTIC STUDIES: Lab Results above were reviewed and interpreted by me. CBC: no anemia or evidence of infection CMP: mild hypokalemia at 3.4. No evidence of severe electrolyte abnormality, renal failure, hypoglycemia Troponin elevated, concerning for acute myocardial ischemia 12-lead EKG was interpreted by Dane Brooks MD: Normal Sinus Rhythm with ventricular rate of 60 beats per minute Left axis deviation Normal intervals Abnormal R wave progression No acute ST or T wave changes suggestive of acute ischemia or STEMI. Radiology Results as interpreted by Radiology below were reviewed by Carolyn Brooks MD: CXR: Cardiomegaly. No pneumonia or failure. Initial Nursing notes reviewed. Previous Medical Records requested via the Electronic Health Record. EMERGENCY DEPARTMENT COURSE / MEDICAL DECISION MAKING: Patient is presenting with generalized weakness and nonspecific symptoms. Vitals were notable for mild hypertension. EKG did not show any signs of acute ischemia. However his troponin was elevated, concerning for ACS. Aspirin was given. Patient will be admitted for ACS rule out and further workup as deemed appropriate by inpatient team and wireless operator. Accepting Care Team: Current data and ongoing care discussed. Time: Time of admission Primary Provider: Dr. Coelho Departure Diagnosis: Primary Impression: NSTEMI (non-ST elevated myocardial infarction) Additional Impression: Acute weakness Condition: Serious MONIK BROOKS MD Feb 10, 2018 17:56
[2018-02-10] MEDS ORDERED: ONDANSETRON 4 MG INJ IV PRN ×2 (18:00→19:00)
[2018-02-10] MEDS ORDERED: ACETAMINOPHEN 325 MG TAB PO PRN ×2 (18:00→19:00)
[2018-02-10] MEDS ORDERED: METHOCARBAMOL 750 MG TAB PO PRN (19:00)
[2018-02-10] MEDS ORDERED: morphine 2 MG INJ IV PRN (19:00)
[2018-02-10] MEDS ORDERED: MINOXIDIL 2.5 MG TAB PO PRN (19:00)
[2018-02-10] MEDS: SOD CHLORIDE 0.9% 1,000 ML IV SCH (19:13)
[2018-02-10] MEDS ORDERED: DOXAZOSIN 2 MG TAB PO SCH (21:00)
[2018-02-10] MEDS ORDERED: ISOSORBIDE MONONITRATE 20 MG TAB PO SCH (21:00)
[2018-02-10] MEDS ORDERED: AMLODIPINE 10 MG TAB PO SCH (21:00)
[2018-02-10 21:50] VITALS: BP 143/62; PULSE 57; RESP 18
[2018-02-10 22:21] VITALS: PULSE 62
[2018-02-10] MEDS: TICAGRELOR 90 MG TABLET PO SCH (22:38)
[2018-02-10 23:09] VITALS: Ht 172.7 cm; Wt 77.3 kg
[2018-02-11] VITALS (8 sets, daily range): BP systolic 117–136; BP diastolic 56–64; PULSE 45–66; RESP 17–20
[2018-02-11] MEDS: SOD CHLORIDE 0.9% 1,000 ML IV SCH ×2 (05:13→15:00)
[2018-02-11] MEDS ORDERED: LOSARTAN 50 MG TAB PO SCH (09:00)
[2018-02-11] MEDS ORDERED: ASPIRIN (EC) 81 MG TAB PO SCH (09:00)
[2018-02-11] MEDS ORDERED: CHOLECALCIFEROL 1,000 UNIT TAB PO SCH (09:00)
[2018-02-11] MEDS ORDERED: METOPROLOL (XL) 25 MG TAB PO SCH (09:00)
--- NOTE | 2018-02-11 09:14 | QN ---
Documentation Comment H&P dcit a./p 1.generalized weakness, likely related to dehydration of lasix (b) orthostasis 2. elevate trop, slight bump since d/c but flat, will discuss with cards 3. poorly controlled htn IAN JOHNSON MD Feb 11, 2018 09:14
[2018-02-11] MEDS: TICAGRELOR 90 MG TABLET PO SCH (09:33)
[2018-02-11] MEDS: POTASSIUM CHLORIDE (SR) 20 MEQ TAB PO SCH ×3 (10:40→13:40)
--- NOTE | 2018-02-11 11:21 | HP ---
DATE OF ADMISSION: 02/10/2018 CHIEF COMPLAINT: Weakness. HISTORY OF PRESENT ILLNESS: Mr. Minaya presents to the emergency room at [facility] with generalized weakness which he states is primarily difficulty with ambulation and dizziness upon stand ing. He denies any chest pain, pressure, discomfort. Denies shortness of breath, but does state brian t this has limited him in his ambulation and that has been feeling this way since his recent discharg e from the hospital. PAST MEDICAL HISTORY: Includes coronary artery disease. He had a non-ST elevation myocardial infarc tion around [place] and had stenting of the right coronary artery. Poorly controlled hypertension, left ventricular hypertrophy with diastolic dysfunction. MEDICATIONS: As an outpatient include: 1. Robaxin. 2. Brilinta 90 mg b.i.d. 3. Norvasc 10 mg daily. 4. Cardura 2 mg daily. 5. Hydralazine 75 mg t.i.d. 6. Isosorbide mononitrate 20 mg daily. 7. Toprol 25 mg daily. 8. Zocor 40 mg daily. 9. Diovan 320 mg daily. 10. Aspirin 81 mg daily. 11. Lasix 20 mg daily. 12. Vitamin D. ALLERGIES: NO KNOWN DRUG ALLERGIES. SOCIAL HISTORY: The patient lives at home in [place] by himself. He is independent of activities o f daily living. Does not use a cane or walker. Continues to drive. Denies tobacco, alcohol, or ill icit drug use. FAMILY HISTORY: Noncontributory. REVIEW OF SYSTEMS: Five systems reviewed and found not to be revealing. PHYSICAL EXAMINATION: VITAL SIGNS: Blood pressure is 121/59, pulse rate 51, respirations 20, temperature is 97.9. GENERAL: Pleasant man in no acute distress. Alert and oriented x3. HEENT: Normocephalic, atraumatic without evident scleral icterus, perioral cyanosis. Mucous membran es are moist. NECK: Soft and supple without masses. No evidence of jugular venous distention or carotid bruits. CHEST: Clear to auscultation and percussion bilaterally. HEART: Regular rate and rhythm, S1-S2, no added sounds. ABDOMEN: Soft, nontender, nondistended without palpable hepatosplenomegaly. EXTREMITIES: Without clubbing, cyanosis or edema. SKIN: Without rashes. NEUROLOGIC: Grossly intact. LABORATORY STUDIES: Reveal hemoglobin 11.3 g/dL, white count of 4500, platelets of 168,000. Sodium 141, potassium 3.1, chloride 106, bicarbonate 30, BUN 13, creatinine 0.83, glucose 102. Troponin is 0.2 and 0.187 respectively. ASSESSMENT AND PLAN: 1. Generalized weakness, suspect this is likely related to dehydration from Lasix therapy. We will plan to discontinue Lasix. Give IV fluids. Replete potassium. Give a trial of ambulation and if we ll tolerated consider discharge to home. 2. Elevated troponin. This is slightly higher than at time of discharge from most recent hospitaliz ation, but is unlikely acute cardiac event in light of its flat nature, unlikely in light of recent c ath and echo that any additional therapy will be undertaken. Will obtain cardiology evaluation. 3. Hypertension, well controlled at this time. Dictated By: IAN JOHNSON MD RER/NTS Conf#: [id number] DID#: [id number] CC: KARUNA MURRAY MD;*End*
--- NOTE | 2018-02-11 14:06 | CONS ---
Date/Time of Note Date/Time of Note DATE: 02/11/18 TIME: 14:05 Assessment/Plan Assessment/Plan Assessment/Plan Presentation is not consistent with acute stent thrombosis -Med Rx now # [id number] Result Diagram: 02/11/18 0544 02/11/18 0544 Results 24hrs Laboratory Tests Test 02/10/18 15:37 02/10/18 17:10 02/10/18 22:40 02/11/18 05:44 White Blood Count 4.6 #L 4.5 L Red Blood Count 5.31 4.67 L Hemoglobin 12.8 L 11.3 L Hematocrit 39.3 L 34.9 L Mean Corpuscular Volume 74.0 L 74.7 L Mean Corpuscular 24.1 L 24.2 L Hemoglobin Mean Corpuscular 32.6 32.4 Hemoglobin Concent Red Cell Distribution 16.8 H 16.9 H Width Platelet Count 173 168 Mean Platelet Volume 11.5 H 12.4 H Immature Granulocytes % 0.200 0.400 Neutrophils % 45.7 44.1 Lymphocytes % 39.2 36.0 Monocytes % 8.5 10.8 Eosinophils % 5.5 7.6 H Basophils % 0.9 1.1 Nucleated Red Blood 0.0 0.0 Cells % Immature Granulocytes # 0.010 0.020 Neutrophils # 2.1 2.0 Lymphocytes # 1.8 1.6 Monocytes # 0.4 0.5 Eosinophils # 0.3 0.3 Basophils # 0.0 0.1 Nucleated Red Blood 0.0 0.0 Cells # Sodium Level 139 141 Potassium Level 3.4 L 3.1 L Chloride Level 101 106 Carbon Dioxide Level 29 30 Anion Gap 9 5 Blood Urea Nitrogen 12 13 Creatinine 0.83 0.83 Est Glomerular Filtrat Rate mL/min Glucose Level 119 102 Calcium Level 9.1 8.4 Troponin I 0.202 *H 0.202 *H 0.187 *H Urine Color YELLOW Urine Clarity CLEAR Urine pH 6.0 Urine Specific [place] 1.009 Urine Ketones NEGATIVE Urine Nitrite NEGATIVE Urine Bilirubin NEGATIVE Urine Urobilinogen 1+ H Urine Leukocyte Esterase NEGATIVE Urine Hemoglobin NEGATIVE Urine Glucose NEGATIVE Urine Total Protein NEGATIVE Creatine Kinase 250 H Creatinine Kinase MB 3.74 H (Mass) Consultation Date/Type/Reason Admit Date/Time Feb 10, 2018 at 22:10 Initial Consult Date Exam/Review of Systems Vital Signs Vitals Vital Signs Date Temp Pulse Resp B/P (MAP) Pulse Ox O2 O2 Flow FiO2 Time Delivery Rate 02/11/18 58 12:12 02/11/18 97.6 19 124/58 100 Nasal 2.0 11:32 (80) Cannula Intake and Output 02/10/18 02/10/18 02/11/18 1515:00 23:00 07:00 IntakeIntake Total 500 ml 1250 ml OutputOutput Total 400 ml BalanceBalance 500 ml 850 ml Medications Medications Current Medications Amlodipine Besylate (Norvasc) 10 mg QHS PO Last administered on 02/10/18 22:41; Admin Dose 10 MG; Start 02/10/18 at 21:00 Aspirin (Halfprin) 81 mg DAILY PO Last administered on 02/11/18 08:39; Admin Dose 81 MG; Start 02/11/18 at 09:00 Cholecalciferol (Vitamin D) 1,000 unit DAILY PO Last administered on 02/11/18 08:40; Admin Dose 1,000 UNIT; Start 02/11/18 at 09:00 Doxazosin Mesylate (Cardura) 2 mg HS PO Last administered on 02/10/18at 21:00; Admin Dose 2 MG; Start 02/10/18 at 21:00 Hydralazine HCl (Apresoline) 75 mg TID PO Last administered on 02/11/18at 13:39; Admin Dose 75 MG; Start 02/10/18 at 21:00 Isosorbide Mononitrate (Ismo) 20 mg QHS PO Last administered on 02/10/18 23:20; Admin Dose 20 MG; Start 02/10/18 at 21:00 Methocarbamol (Robaxin) 750 mg Q6H PRN PO MUSCLE SPASMS; Start 02/10/18 at 19:00 Metoprolol Succinate (Toprol Xl) 25 mg DAILY PO ; Start 02/11/18 at 09:00 Ticagrelor (Brilinta) 90 mg BID PO Last administered on 02/11/18 09:33; Admin Dose 90 MG; Start 02/10/18 at 21:00 Atorvastatin Calcium (Lipitor) 20 mg DAILY@21 PO ; Start 02/11/18 at 21:00 Losartan Potassium (Cozaar) 100 mg DAILY PO Last administered on 02/11/18at 08:40; Admin Dose 100 MG; Start 02/11/18 at 09:00 Minoxidil (Loniten) 2.5 mg Q6H PRN PO sbp>160; Start 02/10/18 at 19:00 Sodium Chloride 1,000 ml @ 100 mls/hr Q10H IV Last administered on 02/11/18at 05:13; Admin Dose 100 MLS/HR; Start 02/10/18 at 19:00 Acetaminophen (Tylenol Tab) 650 mg Q4H PRN PO PAIN; Start 02/10/18 at 19:00 Ondansetron HCl (Zofran Inj) 4 mg Q4H PRN IV nausea; Start 02/10/18 at 19:00 Morphine Sulfate (morphine) 2 mg Q2H PRN IV pain; Start 02/10/18 at 19:00 SHADY MALDONADO MD Feb 11, 2018 14:06
--- NOTE | 2018-02-11 15:04 | CONS ---
DATE OF ADMISSION: 02/10/2018 DATE OF CONSULTATION: 02/11/2018 TYPE OF CONSULTATION: Cardiology. REFERRING PHYSICIAN: Ian Johnson MD REASON FOR EVALUATION: Precordial chest pain. HISTORY OF PRESENT ILLNESS: Mr. Minaya is an 87-year-old gentleman with history of hypertension, d yslipidemia, history of coronary artery disease, history of non-ST elevation myocardial infarction wi th prior RCA stenting, who comes to the hospital now for generalized weakness. I have been asked to see patient in consultation because of his cardiac history. The patient had mildly elevated troponin s on this presentation. His troponin was 0.201, which trended down to with a CK-MB that is sli ghtly elevated at 3.7. The patient does not report any chest pain at this particular point. His zoey n complaint is weakness. The patient's EKG on presentation is not consistent with acute stent occlus ion. I think for now, conservative therapy is expected. The patient is somewhat diuresed and some o f his medications have been held. PAST MEDICAL HISTORY: 1. Hypertension. 2. Dyslipidemia. 3. Coronary artery disease. 4. History of weakness. 5. History of recent drug-eluting stenting. 6. History of CHF, now is in advanced diuresis. ALLERGIES: NO KNOWN DRUG ALLERGIES. SOCIAL HISTORY: Does not smoke, does not drink, does not use drugs. FAMILY HISTORY: Negative for sudden cardiac or premature coronary artery disease. Has history of diabetes in the family. MEDICATIONS: The patient is on: 1. Atorvastatin 20 mg a day. 2. Potassium replacement. 3. Aspirin 81 mg a day. 4. Metoprolol succinate 25 mg once a day. 5. Losartan 100 mg once a day. 6. Hydralazine. 7. Minoxidil 2.5 mg p.o. once a day. 8. Brilinta 90 mg p.o. b.i.d. I do not appreciate a second anticoagulation agent and I do not see why it was done there. REVIEW OF SYSTEMS: CONSTITUTIONAL: No fevers, no chills, weakness. HEENT: No changes in vision or hearing. CARDIAC: No chest pain reported. RESPIRATORY: No shortness of breath. GASTROINTESTINAL: No nausea, vomiting, diarrhea, constipation. GENITOURINARY: No dysuria, hematuria. NEUROLOGIC: No focal neurologic deficits. HEMATOLOGIC: No easy bruising. PSYCHIATRIC: No history of psychiatric illness. PHYSICAL EXAMINATION: VITAL SIGNS: Temperature is 97.6, heart rate 58, blood pressure 124/58. GENERAL: He is a thin gentleman in no acute distress, alert and oriented x3, aware of his condition. HEENT: Head: Normocephalic, atraumatic. Eyes are intact. NECK: Supple. JVD is 6 to 7 cm. There is no lymphadenopathy, no thyromegaly. HEART: Regular, soft holosystolic murmur. PMI is minimally displaced. There is no S3. LUNGS: Coarse to the bases. ABDOMEN: Distended. Bowel sounds are present. There is no hepatosplenomegaly. GENITOURINARY: Intact. EXTREMITIES: No clubbing, cyanosis. Trace edema. LABORATORY DATA: Sodium 141, potassium 3.1 and replaced, creatinine 0.9. Troponin went from 0.2 to 0.17 with CK-MB went from 5 to 3.78. His white blood cell count 4.5, hemoglobin 11.3, platelets 168. ASSESSMENT AND PLAN: 1. Precordial chest pain. The patient has chest pain, fairly mild. His presentation is not consist ent with acute stent thrombosis. I think for now, conservative therapy is expected. The patient is on dual antiplatelet therapy with Brilinta and aspirin. Continue to follow. He is also a beta block er. 2. Generalized weakness. His diuretics will be held. Continue to monitor closely. 3. Hypokalemia. Replace potassium. 4. Congestive heart failure. The patient has history of congestive heart failure, preserved ejectio n fraction. Continue to keep the patient euvolemic. 5. Abnormal EKG. The patient with abnormal EKG with prior myocardial infarction identified. No sig nificant change is noted now. 6. Hypertension. Blood pressure is well optimized now. I would like to thank Dr. Johnson for referring this patient for my evaluation. Dictated By: SHADY MALDONADO MD ML/NTS Conf#: [id number] DID#: [id number] CC: KARUNA MURRAY MD; IAN JOHNSON MD;*End*
--- NOTE | 2018-02-11 15:44 | PDOCDIS ---
Discharge Instructions DIAGNOSIS Discharge Diagnosis 1. generalized weakness secondary to dehydration 2. recent heart attack with stent 3. heart failure with preserved EF 4. hypertension CONDITION [id number] Patient Condition: Ynyyl0d Fair HOME CARE INSTRUCTIONS: [id number] Diet Instructions: [id number] Activity Restrictions: Oxyru7t Slowly Increase Activity FOLLOW UP/APPOINTMENTS Follow-up Plan 1. Dr San as previously scheduled 2. primary care physician 1-2 weeks 3. note STOP TAKING FUROSEMIDE (lasix) and LOSARTAN (Cozaar) REFERRALS Other Referrals 1. home health RN for medication education and adherence 2. home safety eval 3. home health PT IAN JOHNSON MD Feb 11, 2018 15:44
--- NOTE | 2018-02-11 15:48 | DS ---
Date/Time of Note Date/Time of Note DATE: 02/11/18 TIME: 15:46 Discharge Summary Admission/Discharge Info Admit Date/Time Feb 10, 2018 at 22:10 Discharge Date/Time 02/11/18 Discharge Diagnosis 1. generalized weakness secondary to dehydration 2. recent heart attack with stent 3. heart failure with preserved EF 4. hypertension Patient Condition: Fair Consults debi carnes -cardiology Hospital Course [atient admitted for generalized weakness, attributed to dehydration and lasix therapy. Given IV fluid and lasix discontinued. IMproved to be independent of ambulation. Patient counselled regarding orthostasis, will arrange home health for further copiong strategies at home Home Meds Active Scripts Aspirin Delayed Release (Aspirin Delayed Release) 81 Mg Tablet.dr, 81 MG PO DAILY for 30 Days, 11 Refills Prov:WANDASHERRIE Latham 02/03/18 Hydralazine Hcl* (Hydralazine Hcl*) 25 Mg Tab, 75 MG PO TID for 30 Days, TAB 3 Refills Prov:SHERRIE MUÑOZ 02/03/18 Losartan Potassium* (Cozaar*) 50 Mg Tablet, 50 MG PO BID for 30 Days, TAB 3 R efills Prov:WANDA,NGemmaGENOVEVAJORDYN 02/03/18 Amlodipine Besylate* (Amlodipine Besylate*) 10 Mg Tablet, 10 MG PO QHS for 30 Days, TAB 3 Refills Prov:WANDA,NGemmaGENOVEVAJORDYN 02/03/18 Metoprolol Succinate* (Toprol XL*) 25 Mg Tab.sr.24h, 25 MG PO DAILY for 30 Days, 3 Refills Prov:SHERRIE MUÑOZ 02/03/18 Furosemide (Lasix) 20 Mg Tab, 20 MG PO DAILY for 30 Days, TAB 3 Refills Prov:WANDA,NGemmaAXEL 02/03/18 Ticagrelor* (Brilinta*) 90 Mg Tablet, 90 MG PO BID for 30 Days, TAB 11 Refills Prov:WANDA,NGemmaAXEL 02/03/18 Isosorbide Mononitrate* (Ismo*) 20 Mg Tablet, 20 MG PO QHS for 30 Days, TAB 3 Refills Prov:SHERRIE MUÑOZ 02/03/18 Methocarbamol* (Robaxin*) 750 Mg Tablet, 750 MG PO Q6H PRN for MUSCLE SPASMS, #20 TAB Prov:SAMINA LOPEZ DO 10/12/17 Reported Medications Cholecalciferol* (Vitamin D3*) 1,000 Unit Tablet, 1000 UNIT PO DAILY, TAB 02/10/18 Naproxen* (Naproxen*) 500 Mg Tablet, 500 MG PO BID, TAB 02/10/18 Doxazosin Mesylate* (Doxazosin Mesylate*) 2 Mg Tablet, 2 MG PO HS, TAB 02/10/18 Valsartan* (Diovan*) 320 Mg Tablet, 320 MG PO DAILY, TAB 02/10/18 Simvastatin* (Zocor*) 40 Mg Tablet, 40 MG PO QHS, #30 TAB 02/10/18 Discontinued Reported Medications Atorvastatin* (Atorvastatin*) 40 Mg Tablet, 40 MG PO QHS, #30 TAB 07/07/16 Tamsulosin Hcl* (Tamsulosin Hcl*) 0.4 Mg Cap.er.24h, 0.4 MG ORAL DAILY, #90 05/16/16 Follow-up Plan 1. Dr San as previously scheduled 2. primary care physician 1-2 weeks 3. note STOP TAKING FUROSEMIDE (lasix) and LOSARTAN (Cozaar) Primary Care Provider Stephen Mahmood Time spent on discharge: > 30 minutes Pending Labs Laboratory Tests Test 02/10/18 17:10 02/10/18 22:40 02/11/18 05:44 Urine Color YELLOW (YELLOW) Urine Clarity CLEAR (CLEAR) Urine pH 6.0 (5.0-9.0) Urine Specific 1.009 (1.003-1.030) [place] Urine Ketones NEGATIVE mg/dL (NEGATIVE) Urine Nitrite NEGATIVE mg/dL (NEGATIVE) Urine Bilirubin NEGATIVE mg/dL (NEGATIVE) Urine Urobilinogen 1+ mg/dL (NEGATIVE) Urine Leukocyte NEGATIVE Son[place]/ul Esterase Urine Hemoglobin NEGATIVE mg/dL (NEGATIVE) Urine Glucose NEGATIVE mg/dL (NEGATIVE) Urine Total NEGATIVE Protein mg/dl (NEGATIVE) Troponin I 0.202 0.187 ng/ml (0.000-0.120 ng/ml (0.000-0.120 ) ) White Blood Count 4.5 10^3/ul (4.8-10.8) Red Blood Count 4.67 10^6/ul (4.70-6.10 ) Hemoglobin 11.3 g/dl (14.0-18.0) Hematocrit 34.9 % (42.0-52.0) Mean Corpuscular 74.7 Volume fl (82.0-101.0) Mean Corpuscular 24.2 Hemoglobin pg (29.0-33.0) Mean Corpuscular 32.4 Hemoglobin Concent g/dl (32.0-37.0) Red Cell 16.9 % (11.5-14.5) Distribution Width Platelet Count 168 10^3/UL (140-415) Mean Platelet 12.4 fl (7.4-10.4) Volume Immature 0.400 Granulocytes % % (0.001-0.429) Neutrophils % 44.1 % (39.0-77.0) Lymphocytes % 36.0 % (15.0-51.0) Monocytes % 10.8 % (0.0-11.0) Eosinophils % 7.6 % (0.0-7.0) Basophils % 1.1 % (0.0-2.0) Nucleated Red Blood 0.0 Cells % /100WBC (0.0-0.0) Immature 0.020 Granulocytes # 10^3/ul (0.0-0.031 ) Neutrophils # 2.0 10^3/ul (1.6-7.5) Lymphocytes # 1.6 10^3/ul (0.8-2.9) Monocytes # 0.5 10^3/ul (0.3-0.9) Eosinophils # 0.3 10^3/ul (0.0-0.5) Basophils # 0.1 10^3/ul (0.0-0.1) Nucleated Red Blood 0.0 Cells # 10^3/ul (0.0-0.0) Sodium Level 141 mmol/L (135-144) Potassium Level 3.1 mmol/L (3.5-5.1) Chloride Level 106 mmol/L (97-110) Carbon Dioxide 30 mmol/L (21-31) Level Anion Gap 5 (5-13) Blood Urea 13 mg/dl (7-20) Nitrogen Creatinine 0.83 mg/dl (0.61-1.24) Est Glomerular mL/min (>60) Filtrat Rate mL/min Glucose Level 102 mg/dl (70-220) Calcium Level 8.4 mg/dl (8.4-10.2) Creatine Kinase 250 IU/L (23-200) Creatinine Kinase 3.74 MB (Mass) ng/ml (0.0-2.4) Microbiology Date/Time Source Procedure Growth Status 02/10/18 22:00 Nares MRSA Screen - Preliminary Screening in process Resulted IAN JOHNSON MD Feb 11, 2018 15:48
[2018-02-11] MEDS ORDERED: ATORVASTATIN 20 MG TAB PO SCH (21:00)
== END 2018-02-11 17:04 | disposition home or self-care (01) | DRG 641 ==
LOC: E/R 15:30 → TEL 22:10
PROVIDERS: ADMIT Legal Medicine; ATTEND Legal Medicine
DX: E86.0 Dehydration (principal); R07.2 Precordial pain; I25.10 Atherosclerotic heart disease of native coronary artery without angina pectoris; Z72.0 Tobacco use; E87.6 Hypokalemia; I11.0 Hypertensive heart disease with heart failure; I50.9 Heart failure, unspecified; Z95.5 Presence of coronary angioplasty implant and graft; I25.2 Old myocardial infarction
CPT/HCPCS: 36415; 71045; 80048; 81003; 82550; 82553; 84484; 85025; 87081; 93005; 96360; 97162; J7030; J7040

== ENCOUNTER 2018-08-20 10:08 | Emergency (ER) | payer OTHER ==
[~2018-08-20] VITALS: Ht 172.7 cm; Wt 75.0 kg
[~2018-08-20 10:08] MED LIST changes: -ATOR40TA68 PO; +CHOL100062 PO; +DOXA2TAB PO; -LAS20 PO; -LOSA50TA2 PO; +SIMV40TA2 PO; -TAMS0.4C2 ORAL; +VALS320T2 PO
[2018-08-20 10:17] VITALS: Ht 172.7 cm; Wt 75.0 kg
[2018-08-20] MEDS ORDERED: METHYLPREDNISOLONE 125 MG INJ IV STA (10:27)
[2018-08-20] MEDS ORDERED: IPRATROPIUM (NEB) 0.5 MG/2.5 ML AMP INH STA (10:27)
[2018-08-20] MEDS ORDERED: ALBUTEROL 0.5% (NEB) 2.5 MG/0.5 ML AMP INH STA (10:27)
[2018-08-20] MEDS ORDERED: ALBUTEROL/IPRATROPIUM (NEB) 3 ML AMP HHN STA (12:29)
--- NOTE | 2018-08-20 12:49 | ERD ---
ER Documentation Chief Complaint Chief Complaint bib ra from home c/o sob,chills since last night h/o chf , copd ,denies cp HPI This is a very pleasant 88-year-old male with a known history of COPD and congestive heart failure. The patient indicates that he felt very cold yesterday evening. However he stated he had no shaking or chills. The patient stated he was complaining of difficulty in breathing. He did not utilize his i nhaler. He states his difficulty breathing is similar to his previous COPD exacerbations. He denies any chest pain or pressure. He denied any swelling of his lower extremities. He denies any recent travel or prolonged immobilization. The patient lives alone and has home health care nurse will come to help him to attend to his activities of daily living. He denies a headache. ROS All systems reviewed and are negative except as per history of present illness. Medications Home Meds Active Scripts Aspirin Delayed Release (Aspirin Delayed Release) 81 Mg Tablet.dr, 81 MG PO DAILY for 30 Days, 11 Refills Prov:SHERRIE MUÑOZ 02/03/18 Hydralazine Hcl* (Hydralazine Hcl*) 25 Mg Tab, 75 MG PO TID for 30 Days, TAB 3 Refills Prov:SHERRIE MUÑOZ 02/03/18 Amlodipine Besylate* (Amlodipine Besylate*) 10 Mg Tablet, 10 MG PO QHS for 30 Days, TAB 3 Refills Prov:SHERRIE MUÑOZ 02/03/18 Metoprolol Succinate* (Toprol XL*) 25 Mg Tab.sr.24h, 25 MG PO DAILY for 30 Days, 3 Refills Prov:SHERRIE MUÑOZ 02/03/18 Ticagrelor* (Brilinta*) 90 Mg Tablet, 90 MG PO BID for 30 Days, TAB 11 Refills Prov:SHERRIE MUÑOZ 02/03/18 Isosorbide Mononitrate* (Ismo*) 20 Mg Tablet, 20 MG PO QHS for 30 Days, TAB 3 Refills Prov:SHERRIE MUÑOZ 02/03/18 Methocarbamol* (Robaxin*) 750 Mg Tablet, 750 MG PO Q6H PRN for MUSCLE SPASMS, #20 TAB Prov:SAMINA LOPEZ DO 10/12/17 Reported Medications Cholecalciferol* (Vitamin D3*) 1,000 Unit Tablet, 1000 UNIT PO DAILY, TAB 02/10/18 Doxazosin Mesylate* (Doxazosin Mesylate*) 2 Mg Tablet, 2 MG PO HS, TAB 02/10/18 Valsartan* (Diovan*) 320 Mg Tablet, 320 MG PO DAILY, TAB 02/10/18 Simvastatin* (Zocor*) 40 Mg Tablet, 40 MG PO QHS, #30 TAB 02/10/18 Allergies Allergies: Coded Allergies: No Known Allergy (Unverified , 02/10/18) PMhx/Soc History of Surgery: Yes (stent ) Anesthesia Reaction: No Hx Neurological Disorder: No Hx Respiratory Disorders: Yes (copd ) Hx Cardiac Disorders: Yes (chf , htn ) Hx Psychiatric Problems: No Hx Miscellaneous Medical Probl: No Hx Alcohol Use: No Hx Substance Use: No Hx Tobacco Use: Yes (quit 35 yrs ago) Smoking Status: Former smoker Physical Exam Vitals Vital Signs Date Temp Pulse Resp B/P (MAP) Pulse Ox O2 O2 Flow FiO2 Time Delivery Rate 08/20/18 64 18 132/55 100 Room Air 11:00 (80) 08/20/18 69 16 100 21 10:57 08/20/18 97.8 77 18 153/62 100 10:17 (92) 08/20/18 79 18 153/62 97 10:15 (92) Physical Exam Constitutional:Well-developed. Well-nourished. HEENT:Normocephalic. Atraumatic.Pupils were equal round reactive to light. Moist mucous membranes.No tonsillar exudates. Neck: No nuchal rigidity. No lymphadenopathy. No posterior cervical spine tenderness or step-offs. Respiratory: Patient is speaking full complete sentences. Not using accessory muscles of respiration. Wheezing heard on end auscultation bilaterally. No rhonchi. No rales. Cardiovascular: Regular rate regular rhythm.No murmurs. No rubs were appreciated.S1, S2 normal. Distal pulses are palpable 2+ bilaterally. GI: Abdomen was soft. Nontender. Non Distended. No pulsatile abdominal masses or bruits. No rebound. No guarding. Bowel sounds were present and normal. Muscle skeletal: Full range of motion of both the upper and lower extremities bilaterally.Normal muscle tone.No assymetrical calf tenderness or swelling. Skin: No petechia, no purpura. No lesions on the palms or the soles of the feet. No maculopapular rash. NEURO: Patient was alert, awake, orientated x3.No facial droop. Gait observed and normal with no ataxia.Speech had regular rate and rhythm. No focal neurological deficits. Result Diagram: 08/20/18 1038 08/20/18 1038 Results 24 hrs Laboratory Tests Test 08/20/18 10:38 White Blood Count 6.4 10^3/ul Red Blood Count 5.12 10^6/ul Hemoglobin 12.9 g/dl Hematocrit 40.4 % Mean Corpuscular Volume 78.9 fl Mean Corpuscular Hemoglobin 25.2 pg Mean Corpuscular Hemoglobin Concent 31.9 g/dl Red Cell Distribution Width 15.9 % Platelet Count 183 10^3/UL Mean Platelet Volume 12.2 fl Immature Granulocytes % 0.500 % Neutrophils % 56.8 % Lymphocytes % 34.6 % Monocytes % 7.5 % Eosinophils % 0.3 % Basophils % 0.3 % Nucleated Red Blood Cells % 0.0 /100WBC Immature Granulocytes # 0.030 10^3/ul Neutrophils # 3.7 10^3/ul Lymphocytes # 2.2 10^3/ul Monocytes # 0.5 10^3/ul Eosinophils # 0.0 10^3/ul Basophils # 0.0 10^3/ul Nucleated Red Blood Cells # 0.0 10^3/ul Prothrombin Time 13.3 Sec Prothrombin Time Ratio 1.0 INR International Normalized Ratio 1.00 Activated Partial Thromboplast Time 32.9 Sec Sodium Level 142 mmol/L Potassium Level 4.9 mmol/L Chloride Level 104 mmol/L Carbon Dioxide Level 25 mmol/L Anion Gap 13 Blood Urea Nitrogen 20 mg/dl Creatinine 1.22 mg/dl Est Glomerular Filtrat Rate mL/min mL/min Glucose Level 103 mg/dl Calcium Level 9.5 mg/dl Total Bilirubin 0.7 mg/dl Direct Bilirubin 0.00 mg/dl Indirect Bilirubin 0.7 mg/dl Aspartate Amino Transf (AST/SGOT) 37 IU/L Alanine Aminotransferase (ALT/SGPT) 22 IU/L Alkaline Phosphatase 72 IU/L Creatine Kinase 290 IU/L Creatine Kinase Index 1.9 Creatinine Kinase MB (Mass) 5.43 ng/ml Troponin I 0.088 ng/ml B-Type Natriuretic Peptide 1240 PG/ML Total Protein 7.4 g/dl Albumin 4.1 g/dl Globulin 3.30 g/dl Albumin/Globulin Ratio 1.24 Current Medications Medications Dose Sig/Jama Start Time Status Last (Trade) Ordered Route PRN Stop Time Admin Dose Reason Admin Albuterol 5 mg ONCE STAT 08/20/18 DC 08/20/18 (Proventil INH 10:27 10:53 0.5% (Neb)) 08/20/18 10:35 Ipratropium 1 mg ONCE STAT 08/20/18 DC 08/20/18 [place] INH 10:27 10:53 (Atrovent 08/20/18 10:35 0.02% (Neb)) 125 mg ONCE STAT 08/20/18 DC 08/20/18 Methylprednis IV 10:27 10:50 olone Sodium 08/20/18 10:35 Succinate (Solu-Medrol) Albuterol/ 3 ml ONCE RESP 08/20/18 DC Ipratropium THERAPY 12:29 (Duoneb) STAT HHN 08/20/18 12:30 Procedures/MDM The patient presented to the emergency department with shortness of breath. My differential diagnosis included but was not limited to upper airway obstruction, CHF, pulmonary embolism, cardiac ischemia, pneumonia, pneumothorax, anemia, drug overdose, pulmonary edema, COPD or asthma. The patient a chest radiograph that showed no infiltrates no pneumothorax or pleural effusions. The patient had been placed in a hospital monitor and there is no ectopy and the patient was not hypoxic. He did have wheezing on auscultation I felt his physical exam findings were likely result of a mild CHF exacerbation with COPD. The patient received nebulizer treatments and IV steroids. His wheezing had completely resolved. The patient had no leukocytosis. 12 Lead EKG tracing ordered and reviewed by myself showed: Normal sinus rhythm of 72 bpm and no arrhythmia. ME interval normal. QRS duration normal. No ST segment elevation No ST segment depression. No changes consistent with acute ischemia. I do feel that the patient was safe to be discharged home after spoke with Dr. Snow who will arrange for outpatient follow-up with the patient. The patient was discharged home in fair condition. They were instructed to return to the emergency department at any time if there was any worsening of their condition. The patient stated they would follow up with their PCP in the next 24-48 hours to initiate a suitable medication regimen under the care of their PCP as well as to allow their PCP to monitor any drug reactions. The patient was discharged home with prescriptions after they gave informed consent to the new medication. They were also fully informed by myself on the adverse effects and adverse drug interactions in order to provide adequate safeguards to prevent possible adverse reactions to medications. Departure Diagnosis: Primary Impression: CHF exacerbation Heart failure type: unspecified Qualified Codes: I50.9 - Heart failure, unspecified Additional Impression: COPD exacerbation Condition: MOUNIKA Michelle MD Aug 20, 2018 12:49
[2018-08-20] MEDS ORDERED: ALBU8.5H8 INH (12:50)
[2018-08-20] MEDS ORDERED: PRED20TA PO (12:50)
[2018-08-20 13:32] VITALS: BP 130/52; PULSE 72; RESP 18
== END 2018-08-20 14:12 | disposition home or self-care (01) ==
LOC: E/R 10:08
DX: J44.1 Chronic obstructive pulmonary disease with (acute) exacerbation (principal); I50.9 Heart failure, unspecified; I10 Essential (primary) hypertension; Z87.891 Personal history of nicotine dependence
CPT/HCPCS: 71045; 80053; 81001; 82550; 82553; 83880; 84484; 85025; 85610; 85730; 87040; 93005; 94644; 94664; 96374; 99285; J2930; 94640

== ENCOUNTER 2018-09-20 10:50 | Emergency (ER) | payer OTHER ==
[~2018-09-20] VITALS: Ht 170.2 cm; Wt 81.8 kg
[~2018-09-20 10:50] MED LIST changes: +ADV10050 INHALATION; +ALBU8.5H8 INH; +ASPI-817 PO; +ATOR40TA68 PO; +BISA-57 PO; +CLOP75TA19 PO; +DOCU-144 PO; +FURO20TA3 PO; +HYDR100T25 PO; +METH1TAB PO; +NITR0.4T32 SL; +POTA10TA37 PO; +PRED20TA PO
[2018-09-20 11:09] VITALS: Ht 170.2 cm; Wt 81.8 kg
--- NOTE | 2018-09-20 14:41 | ERD ---
ER Documentation Chief Complaint Chief Complaint R81 fr home, chronic constipation, sob, speaking full sentences HPI 88-year-old male with a history of hypertension, CHF, COPD, CAD presenting with complaints of chest pain and some shortness of breath since last night. He is also complaining of 3 days of constipation but is able to pass gas. Patient does often have problems with constipation. He also states that he intermittent ly has shortness of breath and chest pain. Currently he is asymptomatic. No alleviating or exacerbating factors. ROS All systems reviewed and are negative except as per history of present illness. Medications Home Meds Active Scripts Bisacodyl* (Dulcolax*) 5 Mg Tablet.dr, 10 MG PO DAILY PRN for CONSTIPATION, #10 TAB Prov:MONIK BROOKS MD 09/20/18 Reported Medications Methenamine/Sodium Salicylate (Cystex Tablet) 1 Each Tablet, 1 EACH PO NEEDED, TAB 09/20/18 Aspirin* (Aspirin* EC) 81 Mg Tablet.dr, 81 MG PO DAILY, TAB 09/20/18 Nitroglycerin* (Nitroglycerin* SL) 0.4 Mg Tab.subl, 0.4 MG SL Q5MIN PRN for CHEST PAIN, BOTTLE 09/20/18 Potassium Chloride* (K-Dur*) 10 Meq Tab.prt.sr, 10 MEQ PO DAILY, TAB 09/20/18 Isosorbide Mononitrate* (Isosorbide Mononitrate*) 20 Mg Tablet, 20 MG PO DAILY, TAB 09/20/18 Salmeterol Xinaf-Fluticasone* (Advair*) 100/50 Diskus Inhaler, 1 INH INHALATION BID, #1 INHALER 09/20/18 Cholecalciferol* (Vitamin D3*) 1,000 Unit Tablet, 1000 UNIT PO DAILY, TAB 09/20/18 Docusate Sodium* (Colace*) 100 Mg Capsule, 100 MG PO TID, #60 CAP 09/20/18 Valsartan* (Diovan*) 320 Mg Tablet, 320 MG PO DAILY, TAB 09/20/18 Clopidogrel Bisulfate* (Clopidogrel Bisulfate*) 75 Mg Tablet, 75 MG PO DAILY, #30 TAB 09/20/18 Atorvastatin* (Atorvastatin*) 40 Mg Tablet, 40 MG PO QHS, #30 TAB 09/20/18 Furosemide* (Furosemide*) 20 Mg Tablet, 20 MG PO DAILY, #60 TAB 09/20/18 Amlodipine Besylate* (Amlodipine Besylate*) 10 Mg Tablet, 10 MG PO DAILY, #30 TAB 09/20/18 Hydralazine Hcl* (Hydralazine Hcl*) 100 Mg Tablet, 100 MG PO Q8, #90 TAB 09/20/18 Discontinued Reported Medications Cholecalciferol* (Vitamin D3*) 1,000 Unit Tablet, 1000 UNIT PO DAILY, TAB 02/10/18 Doxazosin Mesylate* (Doxazosin Mesylate*) 2 Mg Tablet, 2 MG PO HS, TAB 02/10/18 Valsartan* (Diovan*) 320 Mg Tablet, 320 MG PO DAILY, TAB 02/10/18 Simvastatin* (Zocor*) 40 Mg Tablet, 40 MG PO QHS, #30 TAB 02/10/18 Discontinued Scripts Prednisone* (Prednisone*) 20 Mg Tab, 60 MG PO DAILY for 5 Days, TAB Prov:MOUNIKA MITCHELL MD 08/20/18 Albuterol Sulfate* (Proair HFA*) 8.5 Gm Hfa.aer.ad, 2 PUFF INH Q6H PRN for WHEEZING AND SOB, #1 INHALER Prov:MOUNIKA MITCHELL MD 08/20/18 Aspirin Delayed Release (Aspirin Delayed Release) 81 Mg Tablet.dr, 81 MG PO DAILY for 30 Days, 11 Refills Prov:SHERRIE MUÑOZ 02/03/18 Hydralazine Hcl* (Hydralazine Hcl*) 25 Mg Tab, 75 MG PO TID for 30 Days, TAB 3 Refills Prov:SHERRIE MUÑOZ 02/03/18 Amlodipine Besylate* (Amlodipine Besylate*) 10 Mg Tablet, 10 MG PO QHS for 30 Days, TAB 3 Refills Prov:SHERRIE MUÑOZ 02/03/18 Metoprolol Succinate* (Toprol XL*) 25 Mg Tab.sr.24h, 25 MG PO DAILY for 30 Days, 3 Refills Prov:SHERRIE MUÑOZ 02/03/18 Ticagrelor* (Brilinta*) 90 Mg Tablet, 90 MG PO BID for 30 Days, TAB 11 Refills Prov:HSERRIE MUÑOZ 02/03/18 Isosorbide Mononitrate* (Ismo*) 20 Mg Tablet, 20 MG PO QHS for 30 Days, TAB 3 Refills Prov:SHERRIE MUÑOZ 02/03/18 Methocarbamol* (Robaxin*) 750 Mg Tablet, 750 MG PO Q6H PRN for MUSCLE SPASMS, #20 TAB Prov:SAMINA LOPEZ DO 10/12/17 Allergies Allergies: Coded Allergies: No Known Allergy (Unverified , 09/20/18) PMhx/Soc History of Surgery: Yes (stent ) Anesthesia Reaction: No Hx Neurological Disorder: No Hx Respiratory Disorders: Yes (copd ) Hx Cardiac Disorders: Yes (chf , htn ) Hx Psychiatric Problems: No Hx Miscellaneous Medical Probl: No Hx Alcohol Use: No Hx Substance Use: No Hx Tobacco Use: Yes (quit 35 yrs ago) Smoking Status: Current some day smoker FmHx Family History: No diabetes Physical Exam Vitals Vital Signs Date Temp Pulse Resp B/P (MAP) Pulse Ox O2 O2 Flow FiO2 Time Delivery Rate 09/20/18 97.7 81 24 136/56 100 11:09 (82) Physical Exam const: No acute distress Head: Atraumatic Eyes: Normal Conjunctiva ENT: Normal External Ears, Nose and Mouth. Neck: Full range of motion. No meningismus.No JVD Resp: Clear to auscultation bilaterally Cardio: Regular rate and rhythm, no murmurs. 2+ distal pulses Abd: Soft, non tender, non distended. Normal bowel sounds Skin: No petechiae or rashes Back: No midline or flank tenderness Ext: No cyanosis, or edema Neur: Awake and alert, normal speech, moving all extremities Psych: Normal Mood and Affect Result Diagram: 09/20/18 1440 09/20/18 1440 Results 24 hrs Laboratory Tests Test 09/20/18 14:40 White Blood Count 4.7 10^3/ul Red Blood Count 4.98 10^6/ul Hemoglobin 12.7 g/dl Hematocrit 39.6 % Mean Corpuscular Volume 79.5 fl Mean Corpuscular Hemoglobin 25.5 pg Mean Corpuscular Hemoglobin Concent 32.1 g/dl Red Cell Distribution Width 16.0 % Platelet Count 179 10^3/UL Mean Platelet Volume 11.5 fl Immature Granulocytes % 0.400 % Neutrophils % 64.6 % Lymphocytes % 23.4 % Monocytes % 10.6 % Eosinophils % 0.6 % Basophils % 0.4 % Nucleated Red Blood Cells % 0.0 /100WBC Immature Granulocytes # 0.020 10^3/ul Neutrophils # 3.0 10^3/ul Lymphocytes # 1.1 10^3/ul Monocytes # 0.5 10^3/ul Eosinophils # 0.0 10^3/ul Basophils # 0.0 10^3/ul Nucleated Red Blood Cells # 0.0 10^3/ul Sodium Level 139 mmol/L Potassium Level 4.1 mmol/L Chloride Level 100 mmol/L Carbon Dioxide Level 30 mmol/L Anion Gap 9 Blood Urea Nitrogen 16 mg/dl Creatinine 1.03 mg/dl Est Glomerular Filtrat Rate mL/min mL/min Glucose Level 111 mg/dl Calcium Level 10.0 mg/dl Troponin I 0.074 ng/ml Current Medications Medications Dose Sig/Jama Start Time Status Last (Trade) Ordered Route PRN Stop Time Admin Dose Reason Admin Bisacodyl 10 mg ONCE ONCE 09/20/18 DC 09/20/18 (Dulcolax) PO 15:30 15:54 09/20/18 15:31 Procedures/MDM EMERGENT LABS AND DIAGNOSTIC STUDIES: Lab Results above were reviewed and interpreted by me. CBC: no anemia or evidence of infection BMP: [no e/o clinically significant electrolyte abnormality severe acidosis, alkalosis, renal failure, diabetic ketoacidosis] Troponin within normal limits, not indicative of cardiac ischemia 12-lead EKG was interpreted by Dane Brooks MD: Sinus rhythm with PACs Left axis deviation Intraventricular conduction delay Inferior and septal Q waves, consistent with old infarct No acute ST or T wave changes suggestive of acute ischemia or STEMI. Radiology Results as interpreted by Radiology below were reviewed by Carolyn Brooks MD: Chest x-ray shows no acute abnormalities Initial Nursing notes reviewed. Previous Medical Records requested via the Electronic Health Record. EMERGENCY DEPARTMENT COURSE / MEDICAL DECISION MAKING: Patient is presenting with episodes of chest pain shortness of breath. However EKG is nonischemic and troponin is negative. Labs did not show any significant abnormalities. Patient is constipated but there is no evidence of acute surgical abdomen. He was treated with Dulcolax. He currently feels much better and is ready to go home. Follow-up with PCP recommended for tomorrow. Low suspicion for ACS, pulmonary embolism, pneumonia. Patient's blood pressure was elevated (>120/80) but appears stable without evidence of hypertensive emergency or urgency. The patient was counseled about the risks of hypertension and urged to pursue outpatient monitoring and therapy within a week with their primary care physician. Departure Diagnosis: Primary Impression: Chest pain Chest pain type: unspecified Qualified Codes: R07.9 - Chest pain, unspecified Additional Impression: Constipation Constipation type: unspecified constipation type Qualified Codes: K59.00 - Constipation, unspecified Condition: Stable MONIK BROOKS MD Sep 20, 2018 14:41
[2018-09-20] MEDS ORDERED: BISACODYL (EC) 5 MG TAB PO ONE (15:30)
[2018-09-20 16:36] VITALS: BP 121/78; PULSE 78; RESP 17
== END 2018-09-20 16:38 | disposition home or self-care (01) ==
LOC: E/R 10:50
DX: R07.9 Chest pain, unspecified (principal); K59.00 Constipation, unspecified; F17.210 Nicotine dependence, cigarettes, uncomplicated; I11.0 Hypertensive heart disease with heart failure; I50.9 Heart failure, unspecified; J44.9 Chronic obstructive pulmonary disease, unspecified; Z79.02 Long term (current) use of antithrombotics/antiplatelets; Z79.82 Long term (current) use of aspirin
CPT/HCPCS: 36415; 71045; 80048; 84484; 85025; 93005